=== PATIENT | male | born 1935 | race Caucasian/White ===

== ENCOUNTER → 2016-09-12 | Outpatient (CLI) | payer MEDICARE, OTHER ==
[2013-12-04 21:58] VITALS: BP 168/84
--- NOTE | 2016-09-12 15:34 | RAD ---
EXAM: Left lower extremity venous Doppler. HISTORY: Left lower extremity pain/swelling. COMPARISON: None. FINDINGS: Grayscale and Doppler analysis of the left lower extremity deep venous system was performed with graded compression and augmentation. The common femoral, greater saphenous, superficial femoral, popliteal and calf veins were assessed. There is no evidence of deep venous thrombosis. A prominent left inguinal lymph node measures 2.8 x 1.1 cm and has a fatty hilus. IMPRESSION: 1. No evidence of deep venous thrombosis. 2. Prominent left inguinal node. Correlate for left lower extremity inflammation.
== END | disposition home or self-care (01) ==
LOC: US 12:51
PROVIDERS: ATTEND Family Medicine
DX: I82.4Z2 Acute embolism and thrombosis of unspecified deep veins of left distal lower extremity (principal); M79.89 Other specified soft tissue disorders
CPT/HCPCS: 93971

== ENCOUNTER → 2017-09-22 | Outpatient (CLI) | payer MEDICARE, OTHER | END | disposition home or self-care (01) | LOC: KCIC US 09:37 | DX: I70.213 Atherosclerosis of native arteries of extremities with intermittent claudication, bilateral legs (principal); I10 Essential (primary) hypertension; E78.00 Pure hypercholesterolemia, unspecified | CPT/HCPCS: 93922; 93925 ==

== ENCOUNTER → 2018-05-04 | Outpatient (CLI) | payer MEDICARE ==
[2013-12-04 21:58] VITALS: BP 168/84
--- NOTE | 2018-05-04 09:30 | RAD ---
EXAM: CT Chest without IV contrast CLINICAL HISTORY: PULM INFILTRATE COMPARISON: 09/25/2015, 07/03/2015 TECHNIQUE: CT of the chest without intravenous contrast. Axial, coronal and sagittal reformatted images were generated. ---PQRS compliance statement - One or more of the following individualized dose reduction techniques were utilized for this study: 1. Automated exposure control 2. Adjustment of the mA and/or kV according to patient size 3. Use of iterative reconstruction technique--- FINDINGS: Lack of intravenous contrast limits evaluation of solid organs, vasculature, and lymph nodes. Chest: The heart is not enlarged. No pericardial effusion. Coronary artery calcifications are seen. No axillary lymphadenopathy. No mediastinal or hilar lymphadenopathy. Mild emphysematous changes are seen. No lobar consolidation. Within the lingula, there is a 1.9 x 2.2 cm nodular density with associated patchy linear opacities previously measured 1.7 x 1.6 cm.. In the right upper lobe, abutting the minor fissure, is a spiculated mass measuring 2.6 x 2.3 cm. Left subscapularis lipoma. Visualized Upper abdomen: Nonobstructing left upper pole renal calculus is seen. Upper abdomen is otherwise grossly unremarkable. Bones: Multilevel degenerative changes of the spine are seen. No definite aggressive osseous lesion is seen. IMPRESSION: 1. Spiculated nodular densities within the right upper lobe is suspicious for malignancy, new compared to 09/25/2015. This can be further assessed by PET/CT or histopathologic correlation as clinically indicated. 2. Mild interval increase in the lingular density, also can be assessed by PET. 3. No definite mediastinal or hilar lymphadenopathy by size criteria. Electronically signed by: Rd Michaels MD (05/04/2018 9:25 AM) [facility]
== END | disposition home or self-care (01) ==
LOC: CT 07:57
PROVIDERS: ATTEND Internal Medicine Pulmonary Disease
DX: J43.9 Emphysema, unspecified (principal); I25.10 Atherosclerotic heart disease of native coronary artery without angina pectoris; D17.1 Benign lipomatous neoplasm of skin and subcutaneous tissue of trunk; N20.0 Calculus of kidney
CPT/HCPCS: 71250

== ENCOUNTER → 2018-07-12 | Outpatient (CLI) | payer MEDICARE, OTHER ==
[2018-06-15 15:00] VITALS: BP 157/70
[~2018-07-12] MED LIST: ALLO100T PO; CHOL10003 PO; FENO145T30 PO; GLIM1TAB2 PO; IPRA4AER IH; LISI-130 PO; OMEG-128 PO; TICA60TA PO
--- NOTE | 2018-07-13 20:14 | RAD ---
Examination: PET/CT exam skull base to mid thighs History: Bilateral lung masses, bladder cancer Comparison/Correlation: 06/06/2018 CT chest without contrast Findings: 14.3 mCi F-18 FDG was intravenously administered for that CT exam. Serum blood glucose at the time of injection was 133 mg/dL. Uptake of radiotracer involving the visualized head and neck is unremarkable. At the anterior right midthoracic level, there is a mass with SUV max of 15.7. This spiculated mass measuring up to 2.4 cm in diameter is unchanged. Intrasinus involving the lung dye again seen. There is a mass involving the lingula them measuring approximately 2 cm and this has remained stable. It abuts the major fissure. Uptake of radiotracer is mild with SUV max of 2.4. Mild tracheomalacia noted. No pleural or pericardial effusion. No abnormal uptake at thoracic lymph nodes. Intense uptake involving the proximal ascending colon is present with SUV max of 9.3. Within the proximal hepatic flexure, there is a focus of intense uptake with SUV max of 8.7. No enlarged abdominal or pelvic lymph nodes. The gallbladder is not identified. No radiopaque collecting system calculi. Diverticulosis of the colon is present. Small right-sided urinary bladder diverticulum appears to be present. No suspicious bony process Impression: Intense uptake involving the patient's known anterior right midthoracic mass. No change in size. Additional mass involving the left midthoracic region has mild uptake and is of indeterminate significance. It has remained stable. There are 2 foci of uptake involving the ascending colon. Findings raise concern for underlying no blastic polyp lesion. Correlate with direct visualization.
== END | disposition home or self-care (01) ==
LOC: PETSC 08:10
PROVIDERS: ATTEND Radiology Radiation Oncology
DX: C34.11 Malignant neoplasm of upper lobe, right bronchus or lung (principal); K57.30 Diverticulosis of large intestine without perforation or abscess without bleeding; J39.8 Other specified diseases of upper respiratory tract; Z85.51 Personal history of malignant neoplasm of bladder
CPT/HCPCS: 78815; A9552

== ENCOUNTER → 2018-10-02 | Outpatient (CLI) | payer MEDICARE, OTHER ==
[2018-06-15 15:00] VITALS: BP 157/70
[~2018-10-02] MED LIST changes: +CLOP75TA PO; +METO25TA4 PO
--- NOTE | 2018-10-02 17:43 | RAD ---
Chest CT without contrast Clinical indications: History of lung cancer. Follow-up study. COMPARISON: July 12, 2018 PET/CT. TECHNIQUE: Noncontrast helical CT scanning of the chest was performed. Without IV contrast, the sensitivity to detect organ pathology is decreased. PQRS compliance Statement One or more of the following individualized dose reduction techniques were utilized for this study: 1. Automated exposure control 2. Adjustment of the mA and/or kV according to patient size 3. Use of iterative reconstruction technique FINDINGS: No enlarged thoracic lymphadenopathy is evident. No focal aneurysmal dilatation of the thoracic aorta is seen. Calcified atheromatous disease of coronary arteries is seen. The heart size is normal and no pericardial effusion is seen. Again seen are nodular infiltrates within the lingula with a calcified granuloma which is stable. Again seen is nodular lung infiltrate adjacent to the minor fissure of the inferior aspect of the right upper lobe which is stable. Small calcified granulomas of the right upper lobe and right middle lobe are seen. No new lung consolidation is evident. No pleural effusion or pneumothorax is seen. The proximal bronchial tree is patent. Again seen is an intramuscular lipoma of the left subscapularis muscle. This is unchanged. This measures 5.6 cm in size. No lytic process is evident. IMPRESSION: Stable chest CT since July 12, 2018. Stable bilateral nodular lung infiltrates. Electronically signed by: Flavio Quinones MD (10/02/2018 5:40 PM) [place] [id number]
== END | disposition home or self-care (01) ==
LOC: CT 08:25
PROVIDERS: ATTEND Radiology Radiation Oncology
DX: R91.8 Other nonspecific abnormal finding of lung field (principal); I25.10 Atherosclerotic heart disease of native coronary artery without angina pectoris; J84.10 Pulmonary fibrosis, unspecified; D17.79 Benign lipomatous neoplasm of other sites; Z85.118 Personal history of other malignant neoplasm of bronchus and lung
CPT/HCPCS: 71250

== ENCOUNTER → 2019-01-03 | Outpatient (CLI) | payer MEDICARE, OTHER ==
[2018-06-15 15:00] VITALS: BP 157/70
[~2019-01-03] MED LIST changes: +ALBU2.5V8 INH; +ASPI81TA50 PO; -GLIM1TAB2 PO; +GLIM1TAB3 PO; +OMEG1CAP6 PO
--- NOTE | 2019-01-03 13:49 | RAD ---
Noncontrast CT scan of the chest compared to similar examination dated October 02, 2018 for lung cancer. TECHNIQUE: Contiguous helical 5 mm axial images are obtained from the thoracic inlet to the base of diaphragm. Sagittal and coronal reformations are evaluated. FINDINGS: Changes of emphysema are again noted. The previously described spiculated right nodular infiltrate is redemonstrated and morphologically unchanged. Measurement is difficult due to the spiculated conformity of this nodule, however measurements obtained on axial image #37 and compared to the prior study on axial image #36 reveal mild additional reduction size, with AP and transverse measurements of 1.6 cm x 1.4 cm, versus prior measurements of 1.7 x 1.6 cm. There is also redemonstration of an irregular nodule in the lingula which adjacent parenchymal scarring which is unchanged in morphology and appearance from the prior examination. The dominant nodular component of this lesion as measured on axial image #37 and compared to the prior examination axial image #39 is stable. Thyroid gland is grossly unremarkable. Central airways are patent. No suspicious mediastinal, hilar, or axillary lymphadenopathy is seen. Heart size within normal limits. Extensive coronary artery calcifications are again noted. The ascending aorta is mildly ectatic at 4.1 cm. Evaluation of the upper abdominal organs is limited by lack of IV contrast, however no gross morphologic anomalies of the visualized organs are identified. There is a large intramuscular lipoma involving the left subscapularis muscle, benign and stable. No suspicious osteoblastic or osteolytic bone lesions are present. IMPRESSION: 1. Spiculated right upper lobe lung nodule which continues to involute, with small interval reduction size from the prior examination. 2. Stable lingular nodule with some associated parenchymal scarring. The dominant nodular component of this region is stable in size and appearance. 3. 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 Benign and of doubtful clinical significance. Electronically signed by: Delvin Young MD (01/03/2019 1:45 PM) [facility] PQRS Compliance Statement: One or more of the following individualized dose reduction techniques were utilized for this examination: 1. Automated exposure control 2. Adjustment of the mA and/or kV according to patient size 3. Use of iterative reconstruction technique
== END | disposition home or self-care (01) ==
LOC: CT 08:03
PROVIDERS: ATTEND Radiology Radiation Oncology
DX: I25.10 Atherosclerotic heart disease of native coronary artery without angina pectoris (principal); D17.79 Benign lipomatous neoplasm of other sites; R91.8 Other nonspecific abnormal finding of lung field; I77.811 Abdominal aortic ectasia; J43.8 Other emphysema
CPT/HCPCS: 71250

== ENCOUNTER → 2019-04-29 | Outpatient (CLI) | payer MEDICARE, OTHER ==
[2018-06-15 15:00] VITALS: BP 157/70
[~2019-04-29] MED LIST changes: +FENO145T3 PO; -FENO145T30 PO; -GLIM1TAB3 PO; +GLIM1TAB7 PO
--- NOTE | 2019-04-29 17:04 | RAD ---
EXAM: CT OF THE CHEST WITHOUT CONTRAST. HISTORY: Lung cancer status post treatment. TECHNIQUE: Computed tomography of the chest was performed without intravenous contrast. One or more of the following individualized dose reduction techniques were utilized for this examination: 1. Automated exposure control. 2. Adjustment of the mA and/or kV according to patient size. 3. Use of iterative reconstruction technique. COMPARISON: 01/03/2019. FINDINGS: Images of the upper abdomen reveal no acute abnormality. Bone windows reveal no suspicious lesions. An intramuscular lipoma within the left subscapularis muscle measures 11 x 5.6 x 3.9 cm. There are no pathologically enlarged mediastinal or axillary lymph nodes. There is no pleural or pericardial effusion. The heart is not enlarged. There are atherosclerotic calcifications of the coronary arteries. A small cavitary nodule in the left upper lobe on image 17. There is a 6 mm and is stable. A scarlike mass inferiorly in the left upper lobe measures approximately 2.1 x 2.0 cm in its most masslike portion and is unchanged. Another lobe of scarring extends more anteriorly and is also stable. A spiculated nodule inferiorly in the right upper lobe on image 36 appears decreased and measures 11 x 8 mm as compared with 13 x 12 mm previously. A tiny 3 mm nodule medially in the right lower lobe on image 40 appears new. Centrilobular emphysema is moderate to severe. IMPRESSION: 1. The treated nodule in the left upper lobe and a small cavitary nodule in the left upper lobe appears stable. 2. A spiculated nodule in the right upper lobe is slightly decreased. 3. A tiny 3 mm nodule in the right lower lobe is new. Three-month follow-up is suggested. 4. Moderate to severe centrilobular emphysema. Electronically signed by: Pj Rajput MD (04/29/2019 5:01 PM) [facility]
== END | disposition home or self-care (01) ==
LOC: CT 09:34
PROVIDERS: ATTEND Radiology Radiation Oncology
DX: Z08 Encounter for follow-up examination after completed treatment for malignant neoplasm (principal); J43.2 Centrilobular emphysema; D17.79 Benign lipomatous neoplasm of other sites; I25.10 Atherosclerotic heart disease of native coronary artery without angina pectoris; R91.8 Other nonspecific abnormal finding of lung field
CPT/HCPCS: 71250

== ENCOUNTER → 2020-08-07 | Outpatient (CLI) | payer MEDICARE, OTHER ==
[2018-06-15 15:00] VITALS: BP 157/70
--- NOTE | 2020-08-07 16:40 | RAD ---
EXAM: PET/CT SCAN INDICATION: Lung cancer COMPARISON: PET CT 07/12/2018. CT chest 05/27/2020 PET/CT SCAN TECHNIQUE: Approximately 60 minutes after the intravenous administration of 15.71millicur ies of F-18 fluorodeoxyglucose (FDG), PET imaging of the body from the base of the skull through the mid thighs was performed. Reconstruction in all 3 planes were performed. The patient's serum glucose level at the time of the F-18 FDG administration was 152 mg/dL. A noncontrast CT scan was obtained fo r attenuation correction and anatomic localization purposes only and is not considered a diagnostic C T scan. PQRS compliance Statement One or more of the following individualized dose reduction techniques were utilized for this study: 1. Automated exposure control 2. Adjustment of the mA and/or kV according to patient size 3. Use of iterative reconstruction technique FINDINGS: Background: Mediastinal SUV max: 3.30 Liver SUV max: 4.35 HEAD AND NECK: No abnormal FDG uptake or lymphadenopathy in the head and neck. CHEST: The spiculated right upper lobe nodule has SUV max 0.93, previously 15.7. It measures 1.6 x 1. 5 cm, similar dimensions from 05/27/2020 but may be less dense. The small cavitary nodule in the media l left apex measures 1.2 x 0.7 cm and has SUV max 4.14. This is new from prior PET/CT and grossly unc hanged in size from 05/27/2020. The nodule in the lingula abutting the fissure measures 2.1 x 1.9 cm a nd has SUV max 1.73, previously 2.4. Adjacent smaller lingular nodule measures 1.3 x 1.0 cm and has S UV max 1.18. These are also similar in size from 05/27/2020. No new abnormal FDG uptake in the chest. There are scattered calcified granulomas. There is mild paraseptal and centrilobular emphysema. No ly mphadenopathy. Heart is normal in size. There are coronary artery calcifications. No lymphadenopathy. ABDOMEN AND PELVIS: Focal FDG uptake at the base of the cecum cecum has SUV max 13.4, previously 9.3. A separate focal uptake in the distal ascending colon/hepatic flexure has SUV max 9.19, previously 8 .7. Eccentric bladder wall thickening on the right is unchanged in appearance. SUV measurements are diffi cult to obtain due to artifact from adjacent urinoma.. Right-sided bladder diverticulum redemonstrate d. There is a new calcification in the bladder at the left UVJ. No hydronephrosis or hydroureter. The re is sigmoid diverticulosis. The liver, pancreas, spleen, adrenal glands are normal in appearance. T here is a simple right renal cyst. MUSCULOSKELETAL: No abnormal radiotracer uptake. IMPRESSION: 1. There is mild FDG uptake in the small cavitary nodule in the medial left apex with SUV max 4.1. Th is could be malignancy or could be infectious/inflammatory. 2. The previously FDG avid nodule in the right upper lobe and the nodules in the lingula now have no FDG uptake above background. 3. Slightly decreased but persistent moderate focal FDG uptake at the base of the cecum. Persistent s eparate focus of moderate FDG uptake in the ascending colon/hepatic flexure. Neoplasm, or infectious or inflammatory processes are possible. Correlate with colonoscopy if not already performed. 4. Unchanged right-sided bladder wall thickening. Unable to assess FDG uptake due to artifact from ur inary uptake. New calcification in the bladder at the left UVJ. No hydronephrosis. Electronically signed by: Amanda Govea MD (08/07/2020 4:38 PM) [id number]
== END ==
LOC: PETSC 08:07
PROVIDERS: ATTEND Internal Medicine Pulmonary Disease
DX: R91.8 Other nonspecific abnormal finding of lung field (principal)
CPT/HCPCS: 78815; A9552

== ENCOUNTER → 2020-11-17 | Outpatient (CLI) | payer MEDICARE, OTHER ==
[2018-06-15 15:00] VITALS: BP 157/70
[~2020-11-17] MED LIST changes: +REGADENOSON 0.4 MG/5 ML DISP.SYRIN. IV ONE
--- NOTE | 2020-11-17 17:52 | CARD ---
MR#: [id number] Date of Study: 11/17/2020 Ordering Physician: OTILIO CRYSTAL, Referring Physician: OTILIO CRYSTAL, Tech: Jojo Coleman, [facility] APPROVED REPORT EXAM: Two-dimensional and M-mode echocardiogram with Doppler and color Doppler. Other Information HR: 82bpm INDICATION COPD Cardiac Disease: CAD RISK FACTORS Hypertension Hyperlipidemia Diabetes 2D DIMENSIONS RVDd3.2 (2.9-3.5cm)Left Atrium(2D)3.6 (1.6-4.0cm) IVSd1.2 (0.7-1.1cm)Aortic Root(2D)3.8 (2.0-3.7cm) LVDd4.8 (3.9-5.9cm)LVOT Diameter2.0 (1.8-2.4cm) PWd1.2 (0.7-1.1cm)LVDs2.7 (2.5-4.0cm) FS (%) 44.7 %SV83.5 ml Aortic Valve AoV Peak Oziel.150.9cm/sAoV VTI33.6cm AO Peak GR.9.1mmHgLVOT Peak Oziel.118.1cm/s LVOT VTI 29.42cmAO Mean GR.6mmHg BIRD (VMAX)1.10oy6YMX (VTI)2.75cm2 Mitral Valve MV E Ocrkyaog93.2cm/sMV DECEL CORQ191bp MV A Temyfobx731.8cm/sMV E Mean Gr.3mmHg MV VAH51bmR/A Ratio0.9 MVA (PHT)3.55cm2 TDI E/Lateral E'12.3E/Medial E'12.4 Pulmonary Valve PV Peak Xephxucf64.7cm/sPV Peak Grad.3mmHg Tricuspid Valve TR P. Coetvsqq386fl/sRAP GGBQPRLX3zoCj TR Peak Gr.53qpPvQWOP18eaTg Pulmonary Vein S1 Tmptxdte75.8cm/sD2 Nfvdstkd39.9cm/s PVa mgjacdib425klwm LEFT VENTRICLE The left ventricle is normal size. There is mild left ventricular hypertrophy. The left ventricular s ystolic function is normal and the ejection fraction is within normal range. The Ejection Fraction is 60-65%. There is normal LV segmental wall motion. Transmitral Doppler flow pattern is Grade I-abnorm al relaxation pattern. RIGHT VENTRICLE The right ventricle is normal size. There is normal right ventricular wall thickness. The right ventr icular systolic function is normal. ATRIA The left atrium size is normal. The right atrium size is normal. The interatrial septum is intact wit h no evidence for an atrial septal defect or patent foramen ovale as noted on 2-D or Doppler imaging. AORTIC VALVE The aortic valve is mildly thickened. Doppler and Color Flow revealed trace aortic regurgitation. The re is no significant aortic valvular stenosis. Calculated aortic valve area is 2.29 cm2 with maximum pressure gradient of 12 mmHg and mean pressure gradient of 7 mmHg. MITRAL VALVE The mitral valve is normal in structure and function. There is no evidence of mitral valve prolapse. There is no mitral valve stenosis. Doppler and Color-flow revealed trace mitral regurgitation. TRICUSPID VALVE The tricuspid valve is normal in structure and function. Doppler and Color Flow revealed trace tricus pid regurgitation with an estimated PAP of 30 mmHg. There is no tricuspid valve stenosis. PULMONIC VALVE The pulmonic valve is not well visualized. Doppler and Color Flow revealed trace pulmonic valvular re gurgitation. GREAT VESSELS The aortic root is normal in size. The ascending aorta is mildly dilated measuring 3.8 cm. The IVC is normal in size and collapses >50% with inspiration. PERICARDIAL EFFUSION There is no evidence of significant pericardial effusion. Critical Notification Critical Value: No <Conclusion> The left ventricle is normal size. The left ventricular systolic function is normal and the ejection fraction is within normal range. The Ejection Fraction is 60-65%. There is normal LV segmental wall motion. There is mild left ventricular hypertrophy. Doppler and Color Flow revealed trace aortic regurgitation. There is no significant aortic valvular stenosis. Doppler and Color-flow revealed trace mitral regurgitation. Doppler and Color Flow revealed trace tricuspid regurgitation with an estimated PAP of 30 mmHg. The ascending aorta is mildly dilated measuring 3.8 cm. Signed by : Sam Wood MD Electronically Approved : 11/17/2020 17:51:53
--- NOTE | 2020-11-17 18:27 | RAD ---
MR#: [id number] Date of Study: 11/17/2020 Ordering Physician: OTILIO CRYSTAL, Referring Physician: SAUD THORNTON Tech: RAE Ba, ARRT (R) (N) APPROVED REPORT Test Type: Pharmacological Stress Nurse/Tech: ELLIE AGUILAR Test Indications: CAD Cardiac History: CAD,STENTS,HTN- SEE EMR Medications: SEE EMR Medical History: COPD, HOME O2, BLADDER CA- SEE EMR Resting ECG: SR Resting Heart Rate: 67 bpm Resting Blood Pressure: 199/87mmHg Pretest Chest Pain: No chest pain Nurse/Tech Notes S1,S2, BP ELEVATED, SR, PT IS WEARING 3L O2 PER NC, SATS 96%, LUNGS CLEAR/DIMINISHED. PT DENIED CHEST PAIN. Consent: The procedure was explained to the patient in lay terms. Informed consent was witnessed. Bakari eout was entered into [employer]. History and Stress Test performed by Aftab Mcbride, (R) (N) Pharm. Details Pharmacologic stress testing was performed using 0.4mg per 5ml of regadenoson given intravenously ove r 7-10 seconds. Stress Symptoms PT HAD A BRIEF PERIOD OF SHORTNESS OF BREATH DURING INITIAL TESTING, RESOLVED AFTER A FEW MINUTES. NO C/O CHEST PAIN. VSS. POST EXERCISE Reason for Termination: Infusion complete Max HR: 98 bpm Max Blood Pressure: 194/83mmHg Blood Pressure response to exercise: Normal blood pressure response during stress. Heart Rate response to exercise: WNL Chest Pain: No. Arrhythmia: No. NO SIGNIFICANT CHANGES NOTED FROM BASELINE EKG. ST Change: No. INTERPRETATION Stress EKG Conclusion: The resting EKG shows a normal sinus rhythm. The stress EKG shows no significant changes from baseline. No EKG evidence of stress-induced ischemia. Imaging Protocol IMAGE PROTOCOL: Rest Tc-99m/stress Tc-99m 1 day Rest: Stress: Viability: Radiopharm.Tc99m AcndgtxpqTk63x Sestamibi Regk7lGu 32mCi Img Date 11/17/2020 11/17/2020 Inj-Img Mfhg18iyx. 60min. Rest Admin Site:IV - Right AntecubitalAdministrator:RAE Ba, ARRT (R)(N) Stress Admin Site: IV - Right AntecubitalAdministrator: Aftab Mcbride, RT (R)(N) STRESS DATA End Diast. Vol.85.0mlAv. Heart Rate81.0bpm End Syst. Vol.16.0mlCO Index BSA0.0L/min Myocardial Giyn602.0gEject. Dsfahzyh53.0% Stress Rates Pk. Fill Rate3.16EDV/secLVtime Pk. Fill 169.50msec Pk. Empty Rate4.10ESV/secLVtime Pk. Nxjyy532.49msec 04/05 Pk. Fill1.08EDV/sec Stress Scores Regional WT2.00Summed WT6.00 Regional WM0.00Summed WM0.00 LV Perfusion The stress scans show no significant defects. The rest scans showed no significant defects. Nuclear imaging shows no reversible ischemia or infarct. Wall Motion Left ventricular systolic function is normal with an ejection fraction of greater than 70%. LV Perf. Quant 17 Seg. SSS4.00 17 Seg. SRS11.00 17 Seg. SDS0.00 Stress Defect Extent (% LAD)0.00Rest Defect Extent (% LAD)0.60Rev. Defect Extent (% LAD)0.00 Stress Defect Extent (% LCX) 8.80Rest Defect Extent (% LCX)32.50Rev. Defect Extent (% LCX)0.00 Stress Defect Extent (% RCA)3.30Rest Defect Extent (% RCA)33.30Rev. Defect Extent (% RCA)0.00 Stress Defect Extent (% ANASTACIA)3.70Rest Defect Extent (% ANASTACIA)18.90Rev. Defect Extent (% ANASTACIA)0.00 Conclusion 1. No EKG evidence of stress-induced ischemia. 2. Nuclear imaging shows no reversible ischemia or infarct. 3. Normal left ventricular systolic function with an ejection fraction of greater than 70%. 4. Low risk Lexiscan nuclear stress test. Signed by : Sam Wood MD Electronically Approved : 11/17/2020 18:26:51
== END ==
LOC: ECHO 09:00
PROVIDERS: ATTEND Internal Medicine Cardiovascular Disease
DX: I11.9 Hypertensive heart disease without heart failure (principal); I25.10 Atherosclerotic heart disease of native coronary artery without angina pectoris
CPT/HCPCS: 78452; 93017; 93306; A9500; J2785

== ENCOUNTER → 2020-12-30 | Outpatient (CLI) | payer MEDICARE, OTHER ==
[2020-12-26 11:00] VITALS: BP 167/84
[~2020-12-30] MED LIST changes: +ALBU2.5V8 IH; +ASCO100019 PO; +FLUT16SP NS; +HYDR12.575 PO; +LOSA-73 PO; +MULT-245 PO; +PANT40TA77 PO; +PRED20TA PO; -REGADENOSON 0.4 MG/5 ML DISP.SYRIN. IV ONE; +THIA100T22 PO
--- NOTE | 2020-12-31 12:21 | RAD ---
EXAM: CT CHEST WITHOUT CONTRAST HISTORY: Lung nodule COMPARISON: CT chest 05/27/2020 TECHNIQUE: Helical CT of the chest performed without contrast. Coronal and sagittal reformats were o btained. One or more of the following individualized dose reduction techniques were utilized for this examinat ion: 1. Automated exposure control 2. Adjustment of the mA and/or kV according to patient size 3. Use of iterative reconstruction technique. FINDINGS: Thyroid gland and thoracic inlet: Normal. Heart and great vessels: Heart is normal in size. No pericardial effusion. There are extensive valdes ry artery calcifications, greatest in the left anterior descending artery. The thoracic aorta is at t he upper limit of normal in the ascending portion measuring 3.9 cm Mediastinum and ryan: No mediastinal or hilar lymphadenopathy. Lungs and pleura: The spiculated nodule in the medial left upper lobe has increased in size now 2.1 x 2.1 x 1.7 cm centimeters, previously 1.3 x 0.9 x 0.8 cm. There are persistent small cavitary compone nts in the nodule. There are new mild linear confluent opacities and traction bronchiectasis in the p osterior left upper lobe abutting the major fissure at the level of the nodule. The opacities in the lingula abutting the major fissure with mild traction bronchiectasis have increa sed and are more confluent. There are some persistent nodular component including a nodular component extending anteriorly, however this is difficult measure. A nodular opacity in the right upper lobe along the minor fissure has increased now measures 2.3 x 1. 5 x 0.5 cm, previously 1.6 x 1.4 x 0.6 cm. There are increased surrounding confluent opacities and mi ld subpleural cystic reticular changes. There are also new confluent opacities with traction bronchie ctasis and honeycombing in the right lower lobe and perihilar right middle lobe. In the perihilar rig ht middle lobe, the opacities are somewhat nodular in appearance. Chest wall and axillae: No axillary lymphadenopathy. There is an intramuscular lipoma in the left sub scapularis muscle. Upper abdomen: Unremarkable. Bones: No acute osseous abnormality. IMPRESSION: 1. Increased size of spiculated nodule in the medial left upper lobe concerning for malignancy. 2. Increased nodular opacities in the lingula, difficult to measure. Slightly increased nodular opaci ty in the right upper lobe. There are also new consolidative opacities in the right middle lobe and r ight lower lobe with honeycombing and traction bronchiectasis. Findings may all be related to treatme nt changes however residual malignancy or progression of malignancy cannot be excluded. Electronically signed by: Amanda Govea MD (12/31/2020 12:19 PM) [id number]
== END ==
LOC: CT 15:44
PROVIDERS: ATTEND Internal Medicine Critical Care Medicine
DX: R91.8 Other nonspecific abnormal finding of lung field (principal); J47.9 Bronchiectasis, uncomplicated; I25.10 Atherosclerotic heart disease of native coronary artery without angina pectoris; D17.79 Benign lipomatous neoplasm of other sites
CPT/HCPCS: 71250

== ENCOUNTER → 2021-06-25 | Outpatient (CLI) | payer MEDICARE, OTHER ==
[2020-12-26 11:00] VITALS: BP 167/84
--- NOTE | 2021-06-25 15:01 | RAD ---
NM PET/CT SKULL BASE TO MID THIGH Clinical Indication: Pulmonary nodule Comparison: CT December 30, 2020. PET/CT August 07, 2020 no pathologic lymphadenopathy. Technique: Patient blood glucose at the time of injection is 230 mg/dL. The patient was administered 12.9 mCi of F-18 FDG intravenously. The patient rested quietly during a 60 minute uptake period. Then PET imaging from the skull base to the upper thighs was performed. A noncontrast CT was acquired ove r this same area. The CT is for attenuation correction and anatomic localization, it is not of diagno stic quality and is not intended to diagnose disease independently of the PET. PQRS Compliance Statement: One or more of the following individualized dose reduction techniques were utilized for this examinat ion: 1. Automated exposure control 2. Adjustment of the mA and/or kV according to patient size 3. Use of iterative reconstruction technique Findings: Background: Mediastinal SUV max: 3.4 Liver SUV max: 3.67 Head and neck: There is no evidence of FDG-avid disease. Chest: Decreased left upper lobe nodule with minimal residual nodule SUV max 0.83. Left upper lobar partial atelectasis SUV max 1.67, similar compared to prior. Right upper lobe linear bandlike opacities SUV M ax 1.19, similar compared to prior. No significant hypermetabolic focus within the lungs. Pulmonary emphysema. No pleural effusion. No pneumothorax. Abdomen and pelvis: Hypermetabolic focus within the right ascending colon SUV Max 6.38. Additional hypermetabolic focus w ithin the ascending colon SUV Max 8.91. The hypermetabolic foci and a similar location compared to pr ior. The liver, spleen, adrenal glands, and pancreas unremarkable. Prior cholecystectomy. Duplicated left renal collecting system with mild hydronephrosis and hydroureter. Ill-defined irregular calcified mas s within the urinary bladder at the left ureterovesical junction measures up to 1.8 x 1.9 cm. Evaluat ion on PET is degraded due to urinary activity No right hydronephrosis. Right renal cyst. Right urina ry bladder diverticulum, unchanged. Colonic diverticulosis. Normal appendix. No evidence of bowel obstruction. No pathologic hypermetabol ic lymphadenopathy within the abdomen or pelvis. No ascites. Musculoskeletal: There is no evidence of FDG-avid disease. Left subscapularis intramuscular lipoma measures 5.0 x 4.0 cm. IMPRESSION: 1. Decreased left upper lobe nodule without significant metabolic activity, may reflect treatment re sponse. Recommend continued follow-up. 2. Left upper lobe and right upper lobe bandlike opacities, may relate to atelectasis and treatment related changes without significant metabolic activity. 3. Ill-defined the partially calcified left posterior bladder mass adjacent to the ureterovesical ju nction contributing to moderate left hydroureteronephrosis. Duplicated left renal collecting system. Recommend further clinical evaluation and biopsy. 4. Persistent hypermetabolic foci within the ascending colon, may represent malignancy given persist ence. Recommend colonoscopy to further assess if not already performed. Electronically signed by: Matthew Varma DO (06/25/2021 2:59 PM) [id number]
== END ==
LOC: PETSC 09:32
PROVIDERS: ATTEND Radiology Radiation Oncology
DX: C34.2 Malignant neoplasm of middle lobe, bronchus or lung (principal); R91.1 Solitary pulmonary nodule; R91.8 Other nonspecific abnormal finding of lung field; K57.30 Diverticulosis of large intestine without perforation or abscess without bleeding; N28.1 Cyst of kidney, acquired; N32.3 Diverticulum of bladder; N32.89 Other specified disorders of bladder; Q62.5 Duplication of ureter; Z90.49 Acquired absence of other specified parts of digestive tract
CPT/HCPCS: 78815; A9552

== ENCOUNTER 2021-08-23 09:15 | Inpatient (IN) | payer MEDICARE, OTHER ==
[~2021-08-23] VITALS: Ht 180.3 cm; Wt 85.3 kg
--- NOTE | 2021-08-23 10:56 | PDOC1 ---
History and Physical Date of Admission Date of Admission DATE: 08/23/21 TIME: 10:56 Identification/Chief Complaint Chief Complaint Shortness of breath Source Source: Patient History of Present Illness History of Present Illness Patient is a 86-year-old male with past medical history COPD on 3 L, lung cancer, bladder cancer, who presents to the ED as a transfer from [facility] due to pneumonia. Patient reports shortness of breath for the past 3 days with associated cough with green sputum production. He denies chest pain or fever. He was recently discharged from 3 weeks ago after having surgery on his bladder to remove the tumor. At a left nephrostomy tube was placed to preserve his kidney function; patient was told that his right kidney is currently no longer functioning. He just recently returned home from rehab. He is not currently receiving chemotherapy for his history of lung cancer or bladder cancer. At [facility] labs showed WBC 17.3, hemoglobin 10.0, hematocrit 30.9, BUN 45, creatinine 2.6, CBG 133, albumin 3.0, troponin 2.6, lactic acid 0.8, D-dimer 2.0. He was influenza and COVID-19 negative. CTA was performed and showed no evidence of pulmonary embolism, but new mild right pleural effusion and new consolidation of the right lung base, atypical pneumonia suspected. He was treated with IV steroids and IV antibiotics. His last COPD exacerbation was in March 2021, and he states his testing director is Dr. Kyle. Patient's been admitted for further medical management. Past Medical History Cardiovascular: HTN, Hyperlipidemia Pulmonary: COPD CENTRAL NERVOUS SYSTEM: Other GI: No pertinent hx Heme/Onc: Cancer Hepatobiliary: No pertinent hx Psych: No pertinent hx Musculoskeletal: Osteoarthritis Rheumatologic: No pertinent hx Infectious disease: No pertinent hx Renal/: Chronic renal insuff Endocrine: Diabetes Past Surgical History Past Surgical History: Appendectomy, Cholecystectomy, Other Family History Family History: Coronary Artery Disease Social History Smoke: Quit ALCOHOL: none Drugs: None Current Medications Current Medications Active Scripts Active Prednisone 20 Mg Tablet 1 Tab PO DAILY 5 Days Vitamin C (Ascorbic Acid) 1,000 Mg Tablet 3,000 Mg PO TID 14 Days Vitamin B-1 (Thiamine Mononitrate) 100 Mg Tablet 300 Mg PO DAILY 14 Days Pantoprazole Sodium (Pantoprazole Sodium) 40 Mg Tablet.dr 40 Mg PO DAILYAC 14 Days Fluticasone Propionate Nasal [place] (Fluticasone Propionate) 16 Gm [place].susp 2 [place] NS DAILY 30 Days Proair Hfa Inhaler (Albuterol Sulfate) 8.5 Gm Hfa.aer.ad 2 Puff IH PRN Q4-6HRS PRN 21 Days Inhale 2 puffs every 4-6 hours as needed for shortness of breath. Reported Losartan Potassium 50 Mg Tablet 50 Mg PO DAILY Hydrochlorothiazide Capsule (Hydrochlorothiazide) 12.5 Mg Capsule 12.5 Mg PO DAILY Multi Vitamin Daily (Multivitamin) 1 Each Tablet 1 Tab PO DAILY 30 Days Fish Oil 1,000 Mg Capsule (Alamo-3 Fatty Acids/Fish Oil) 1 Each Capsule 1 Each PO DAILY Proair Hfa Inhaler (Albuterol Sulfate) 8.5 Gm Hfa.aer.ad 1 Puff INH PRN Q6HRS PRN Aspir-Low (Aspirin) 81 Mg Tablet.dr 81 Mg PO DAILY Combivent Respimat Inhal (Ipratropium/Albuterol Sulfate) 4 Gm Aer.w.adap 2 Inh IH QID Vitamin D3 (Cholecalciferol (Vitamin D3)) 1,000 Unit Tablet 1 Tab PO DAILY Fenofibrate (Fenofibrate Nanocrystallized) 145 Mg Tablet 1 Tab PO DAILY Allopurinol 100 Mg Tablet 1 Tab PO DAILY Alamo 3 500 Softgel (Alamo-3/Dha/Epa/Fish Oil) 1 Each Capsule 1 Each PO DAILY Allergies Allergies: Coded Allergies: No Known Drug Allergies (Unverified , 12/03/13) ROS Review of System GENERAL: No history of weight change, weakness or fevers. SKIN: No bruising, hair changes or rashes. EYES: No blurred, double or loss of vision. NOSE AND THROAT: No history of nosebleeds, hoarseness or sore throat. HEART: Denies chest pain, denies palpitations. LUNGS: Shortness of breath and cough. Denies hemoptysis. GASTROINTESTINAL: Denies nausea, vomiting, abdominal pain. GENITOURINARY: Denies dysuria, frequency, urgency, hematuria. NEUROLOGIC: Denies history of numbness, tingling, tremor or weakness. PSYCHIATRIC: Denies anxiety, denies depression. ENDOCRINE: No history of heat or cold intolerance, polyuria or polydipsia. EXTREMITIES: Denies muscle weakness, joint pain, pain on walking or stiffness. Physical Exam Physical Exam General: Alert, Oriented X3, Cooperative, No acute distress HEENT: Hard of hearing. PERRLA, EOMI Lungs: Decreased breath sounds bilaterally normal air movement Heart: RRR, no murmurs Cardiovascular: S1, S2 Abdomen: Nephrostomy tubes to left flank. Normal bowel sounds, Soft, No tenderness Extremities: +1 edema bilateral lower extremities. No clubbing, No cyanosis Skin: No rashes, No significant lesion Neuro: Normal speech, Normal tone, Sensation intact Psych/Mental Status: Mental status NL, Mood NL Images Images PATIENT: DINORA FRORESTER ACCOUNT: [id number] : 1935 LOCATION: ER AGE: 86 SEX: M EXAM STATUS: REG ER ORD. PHYSICIAN: KATIE FARR MD REASON: SOB, lung cancer PROCEDURE: CT ANGIOGRAPHY CHEST ADDENDUM ADDENDUM #1 Addendum: The patient was given IV contrast despite acute renal insufficiency. Ordered by the clinical provider on medical necessity. Electronically signed by: Al Mary III, MD (08/23/2021 6:59 AM) [facility] ORIGINAL REPORT CTA Chest with contrast: Clinical History: Reason: SOB, lung cancer / Spl. Instructions: / History: Shortness of breath. Axial helical images of the chest were obtained after the administration of 100 cc of IV Isovue-370 and timed appropriately for a pulmonary arterial study. Conventional axial reconstruction was performed in addition to coronal, sagittal and bilateral oblique MIP (maximum intensity projection). This study was ordered to detect possible pulmonary embolism. There are no filling defects to suggest pulmonary embolism. COMPARISON: March 08, 2021 There is a 9.9 cm x 4.0 cm benign lipoma anterior to the left scapula. There is patchy opacity posterior to the left upper lobe. There is patchy nodular opacities throughout the right lung and consolidation in the right lung base. There is nodular opacity posteriorly in the lingula. There is a mild right pleural effusion. There is no mediastinal or hilar lymphadenopathy. The thoracic aorta appears normal. Impression: 1. No evidence of pulmonary embolism. 2. Patchy nodular opacities lungs bilaterally likely related related to patient's known lung cancer and are mildly improved. 3. New mild right pleural effusion and new consolidation of the right lung base. This could be neoplastic although atypical pneumonia is possible. PQRS Compliance Statement: One or more of the following individualized dose reduction techniques were utilized for this examination: 1. Automated exposure control 2. Adjustment of the mA and/or kV according to patient size 3. Use of iterative reconstruction technique Electronically signed by: Al Mary III, MD (08/23/2021 5:06 AM) [facility] DICTATED AND SIGNED BY: AL MARY III, MD DATE: 08/23/21 0657 CC: KATIE FARR MD; PCP,NO ~ CTA Chest with contrast: Clinical History: Reason: SOB, lung cancer / Spl. Instructions: / History: Shortness of breath. Axial helical images of the chest were obtained after the administration of 100 cc of IV Isovue-370 and timed appropriately for a pulmonary arterial study. Conventional axial reconstruction was performed in addition to coronal, sagittal and bilateral oblique MIP (maximum intensity projection). This study was ordered to detect possible pulmonary embolism. There are no filling defects to suggest pulmonary embolism. COMPARISON: March 08, 2021 There is a 9.9 cm x 4.0 cm benign lipoma anterior to the left scapula. There is patchy opacity posterior to the left upper lobe. There is patchy nodular opacities throughout the right lung and consolidation in the right lung base. There is nodular opacity posteriorly in the lingula. There is a mild right pleural effusion. There is no mediastinal or hilar lymphadenopathy. The thoracic aorta appears normal. Impression: 1. No evidence of pulmonary embolism. 2. Patchy nodular opacities lungs bilaterally likely related related to patient's known lung cancer and are mildly improved. 3. New mild right pleural effusion and new consolidation of the right lung base. This could be neoplastic although atypical pneumonia is possible. VTE Prophylaxis Ordered VTE Prophylaxis Devices: No VTE Pharmacological Prophylaxi: Yes Assessment/Plan Assessment/Plan Acute respiratory failure with hypoxia Sepsis Hospital-acquired pneumonia Acute COPD Acute on chronic renal insufficiency possibly due to vasomotor nephropathy History lung cancer History of bladder cancer with recent placement of left nephrostomy tube Mild malnutrition Plan: We will continue patient's treatment with cefepime 2 g every 8 hours and vancomycin Consultation to pulmonology Hold off on further steroids given no appreciable wheezing. DuoNebs 4 times daily. IV fluids MRSA swab pending Resume home medications FEN - Cardiac diet PPX - Heparin DNR/patient names his son (Eagle Forrester) as surrogate decision-maker Dispo - inpatient for above Justifications for Admission Other Justification VERNON PRITCHARD MD August 23, 2021 10:56
[2021-08-23] MEDS ORDERED: ACETAMINOPHEN 325 MG TABLET. PO PRN (11:30)
[2021-08-23] MEDS ORDERED: MAGNESIUM HYDROXIDE 2,400 MG/30 ML ORAL.SUSP. PO PRN (11:30)
[2021-08-23] MEDS ORDERED: CALCIUM CARBONATE 500 MG TAB.CHEW PO PRN (11:30)
[2021-08-23] MEDS ORDERED: HYDROcodone/APAP 5/325MG 1 TAB TABLET PO PRN (11:30)
[2021-08-23] MEDS ORDERED: MAG HYDROX/ALUMINUM HYD/SIMETH 30 ML ORAL.SUSP PO PRN (11:30)
[2021-08-23] MEDS ORDERED: ONDANSETRON PF 4 MG/2 ML VIAL. IVP PRN (11:30)
[2021-08-23] MEDS ORDERED: VANCOMYCIN PER PHARMACY MC PRN (11:30)
[2021-08-23 12:01] LABS: BASO % 0 % (0-3); EOS % 0 % (0-3); HEMATOCRIT 29.1 % (39.0-53.0); HEMOGLOBIN 9.6 g/dL (13.0-17.5); LYMPH # 0.2 x10^3/uL (1.0-4.8); LYMPH % 1 % (24-48); MEAN CORPUSCULAR HEMOGLOBIN 31 pg (25-35); MEAN CORPUSCULAR HGB CONC 33 g/dL (31-37); MEAN CORPUSCULAR VOLUME 95 fL (79-100); MONO # 0.4 x10^3/uL (0.0-1.1); MONO % 2 % (0-9); NEUT # 16.4 x10^3/uL (1.8-7.7); NEUT % 96 % (31-73); PLATELET COUNT 311 x10^3/uL (140-400); RED BLOOD COUNT 3.07 x10^6/uL (4.30-5.70); RED CELL DISTRIBUTION WIDTH 14.1 % (11.5-14.5); WHITE BLOOD COUNT 17.1 x10^3/uL (4.0-11.0)
[2021-08-23 12:13] LABS: ALBUMIN 2.7 g/dL (3.4-5.0); ALBUMIN/GLOBULIN RATIO 0.8 (1.0-1.7); CALCIUM 8.3 mg/dL (8.5-10.1); CREATININE 2.8 mg/dL (0.7-1.3); GFR 21.5; POTASSIUM 4.9 mmol/L (3.5-5.1); TOTAL BILIRUBIN 0.5 mg/dL (0.2-1.0); TOTAL PROTEIN 6.2 g/dL (6.4-8.2)
[2021-08-23] MEDS: IV NORMAL SALINE 1000ML BAG 1,000 ML IV SCH (12:37)
[2021-08-23] MEDS: CEFEPIME HCL IV Push 2 GM VIAL. IVP SCH (12:37)
[2021-08-23] MEDS ORDERED: VANCOMYCIN 1.5 GM in IV DEXTROSE 5% 500 ML IV ONE (13:00)
[2021-08-23 13:28] LABS: % BANDS 5 % (0-9); % LYMPHS 1 % (24-48); % MONOS 1 % (0-10); % SEGS 93 % (35-66); PLT ESTIMATE ADEQUATE (ADEQUATE)
--- NOTE | 2021-08-23 15:21 | PDOC ---
PULMONARY PROGRESS NOTES DATE: 08/23/21 TIME: 15:20 General: Alert, No acute distress HEENT: Other Lungs: Other Cardiovascular: S1, S2 Abdomen: Soft, Non-tender Extremities: No Edema Labs Laboratory Tests Test 08/23/21 11:36 White Blood Count 17.1 x10^3/uL (4.0-11.0) Red Blood Count 3.07 x10^6/uL (4.30-5.70) Hemoglobin 9.6 g/dL (13.0-17.5) Hematocrit 29.1 % (39.0-53.0) Mean Corpuscular Volume 95 fL (79-100) Mean Corpuscular Hemoglobin 31 pg (25-35) Mean Corpuscular Hemoglobin Concent 33 g/dL (31-37) Red Cell Distribution Width 14.1 % (11.5-14.5) Platelet Count 311 x10^3/uL (140-400) Neutrophils (%) (Auto) 96 % (31-73) Lymphocytes (%) (Auto) 1 % (24-48) Monocytes (%) (Auto) 2 % (0-9) Eosinophils (%) (Auto) 0 % (0-3) Basophils (%) (Auto) 0 % (0-3) Neutrophils # (Auto) 16.4 x10^3/uL (1.8-7.7) Lymphocytes # (Auto) 0.2 x10^3/uL (1.0-4.8) Monocytes # (Auto) 0.4 x10^3/uL (0.0-1.1) Eosinophils # (Auto) 0.0 x10^3/uL (0.0-0.7) Basophils # (Auto) 0.0 x10^3/uL (0.0-0.2) Segmented Neutrophils % 93 % (35-66) Band Neutrophils % 5 % (0-9) Lymphocytes % 1 % (24-48) Monocytes % 1 % (0-10) Platelet Estimate Adequate (ADEQUATE) Sodium Level 138 mmol/L (136-145) Potassium Level 4.9 mmol/L (3.5-5.1) Chloride Level 99 mmol/L (98-107) Carbon Dioxide Level 27 mmol/L (21-32) Anion Gap 12 (6-14) Blood Urea Nitrogen 47 mg/dL (8-26) Creatinine 2.8 mg/dL (0.7-1.3) Estimated GFR (Cockcroft-Gault) 21.5 BUN/Creatinine Ratio 17 (6-20) Glucose Level 270 mg/dL (70-99) Calcium Level 8.3 mg/dL (8.5-10.1) Total Bilirubin 0.5 mg/dL (0.2-1.0) Aspartate Amino Transf (AST/SGOT) 14 U/L (15-37) Alanine Aminotransferase (ALT/SGPT) 17 U/L (16-63) Alkaline Phosphatase 50 U/L (46-116) Total Protein 6.2 g/dL (6.4-8.2) Albumin 2.7 g/dL (3.4-5.0) Albumin/Globulin Ratio 0.8 (1.0-1.7) Laboratory Tests Test 08/23/21 11:36 White Blood Count 17.1 x10^3/uL (4.0-11.0) Red Blood Count 3.07 x10^6/uL (4.30-5.70) Hemoglobin 9.6 g/dL (13.0-17.5) Hematocrit 29.1 % (39.0-53.0) Mean Corpuscular Volume 95 fL (79-100) Mean Corpuscular Hemoglobin 31 pg (25-35) Mean Corpuscular Hemoglobin Concent 33 g/dL (31-37) Red Cell Distribution Width 14.1 % (11.5-14.5) Platelet Count 311 x10^3/uL (140-400) Neutrophils (%) (Auto) 96 % (31-73) Lymphocytes (%) (Auto) 1 % (24-48) Monocytes (%) (Auto) 2 % (0-9) Eosinophils (%) (Auto) 0 % (0-3) Basophils (%) (Auto) 0 % (0-3) Neutrophils # (Auto) 16.4 x10^3/uL (1.8-7.7) Lymphocytes # (Auto) 0.2 x10^3/uL (1.0-4.8) Monocytes # (Auto) 0.4 x10^3/uL (0.0-1.1) Eosinophils # (Auto) 0.0 x10^3/uL (0.0-0.7) Basophils # (Auto) 0.0 x10^3/uL (0.0-0.2) Segmented Neutrophils % 93 % (35-66) Band Neutrophils % 5 % (0-9) Lymphocytes % 1 % (24-48) Monocytes % 1 % (0-10) Platelet Estimate Adequate (ADEQUATE) Sodium Level 138 mmol/L (136-145) Potassium Level 4.9 mmol/L (3.5-5.1) Chloride Level 99 mmol/L (98-107) Carbon Dioxide Level 27 mmol/L (21-32) Anion Gap 12 (6-14) Blood Urea Nitrogen 47 mg/dL (8-26) Creatinine 2.8 mg/dL (0.7-1.3) Estimated GFR (Cockcroft-Gault) 21.5 BUN/Creatinine Ratio 17 (6-20) Glucose Level 270 mg/dL (70-99) Calcium Level 8.3 mg/dL (8.5-10.1) Total Bilirubin 0.5 mg/dL (0.2-1.0) Aspartate Amino Transf (AST/SGOT) 14 U/L (15-37) Alanine Aminotransferase (ALT/SGPT) 17 U/L (16-63) Alkaline Phosphatase 50 U/L (46-116) Total Protein 6.2 g/dL (6.4-8.2) Albumin 2.7 g/dL (3.4-5.0) Albumin/Globulin Ratio 0.8 (1.0-1.7) Medications Active Scripts Medications Dose Route/Sig Max Daily Dose Days Date Category Dose Instructions Vitamin C (Ascorbic Acid) 1,000 Mg Tablet 3,000 Mg PO TID 14 12/26/20 Rx Hydrochlorothiazide Capsule (Hydrochlorothiazide) 12.5 Mg Capsule 12.5 Mg PO DAILY 12/25/20 Reported Multi Vitamin Daily (Multivitamin) 1 Each Tablet 1 Tab PO DAILY 30 12/25/20 Reported Proair Hfa Inhaler (Albuterol Sulfate) 8.5 Gm Hfa.aer.ad 2 Puff IH PRN Q4-6HRS PRN 21 12/24/20 Rx Inhale 2 puffs every 4-6 hours as needed for shortness of breath. Aspir-Low (Aspirin) 81 Mg Tablet.dr 81 Mg PO DAILY 01/07/19 Reported Vitamin D3 (Cholecalciferol (Vitamin D3)) 1,000 Unit Tablet 1 Tab PO DAILY 06/04/18 Reported Fenofibrate (Fenofibrate Nanocrystallized) 145 Mg Tablet 1 Tab PO DAILY 06/04/18 Reported Allopurinol 100 Mg Tablet 1 Tab PO DAILY 06/04/18 Reported Impression . FULL CONSULT DICTATED RESP FAILURE PNEUMONIA SEEE ORDERS ANAMIKA ARELLANO MD August 23, 2021 15:21
[2021-08-23 19:00] VITALS: BP 141/74
[2021-08-23] MEDS: ZOLPIDEM 5 MG TABLET. PO PRN ×2 (20:16→22:45)
[2021-08-23] MEDS: HEPARIN for SUB-Q USE 5,000 UNIT/ML VIAL. SQ SCH (20:23)
[2021-08-23] MEDS: LACTOBACILLUS RHAMNOSUS GG 1 CAPSULE. PO SCH (20:35)
--- NOTE | 2021-08-23 22:46 | CONS ---
DATE OF CONSULTATION: 08/23/2021 ATTENDING PHYSICIAN: Dr. Reece. REASON FOR CONSULTATION: The patient is seen in Pulmonary consultation at the request of Dr. Reece for abnormal CT revealing a new right lower lobe infiltrate. HISTORY OF PRESENT ILLNESS: The patient is an 86-year-old well known to me from previous hospitalization and office visits. He was seen on 07/14/2021. At that time, he presented with chronic respiratory failure, multifactorial in nature, had a history of right lung cancer in remission for the last 2-3 years, status post definitive radiotherapy, had a new left upper lobe enlarging mass, treated with SBRT. He had undergone a recent PET scan revealing that his disease was under control. The patient also had a history of bladder cancer, was being followed at [facility]. He was recently hospitalized at [facility], underwent surgical intervention there for his bladder tumor. He was discharged home with a left nephrostomy tube. He was at rehab for 17 days, returned home. He was at home for approximately 3 days, presented to [facility] with increasing shortness of breath and abnormal x-ray. White count was 17,000. He had a CT angiogram, which was personally reviewed by me. There was no evidence of pulmonary emboli. There was a new right lower lobe infiltrate, small effusion. He was transferred to [facility]. He is currently receiving empiric antibiotics. He is awake, alert. His appetite is poor. He has a cough, mostly nonproductive. Since admission, he has had a low-grade fever. OBJECTIVE: VITAL SIGNS: Otherwise vital signs are stable. O2 saturation currently on 4 liters greater than 92%. HEENT: Eyes: The sclerae were nonicteric. NECK: Jugular venous distention was not elevated. No lymphadenopathy. CHEST: Full expansion. LUNGS: Diminished breath sounds on the right, otherwise some scattered rhonchi. CARDIOVASCULAR: Regular rate and rhythm with S1, S2, no S3. ABDOMEN: Soft, nontender, nondistended. EXTREMITIES: No clubbing, cyanosis. Minimal edema. NEUROLOGIC: The patient was awake, alert, following commands. A detailed neuro exam was not performed. LABORATORY DATA: White count was elevated at 17,000, hemoglobin of 9, hematocrit of 29, platelet count was noted. Electrolytes were noted. BUN was elevated, creatinine was 2.8, calcium was 8.3, albumin was 2.7. CT angiogram reviewed as indicated above. IMPRESSION: 1. Acute on chronic hypoxemic respiratory failure, multifactorial. 2. Abnormal CT revealing a new infiltrate in left lower lobe with a small effusion, compatible with healthcare-acquired pneumonia, suspect gram-negative, possibly gram-positive. 3. History of lung cancer. 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 4. New left upper lobe enlarging mass, treated with SBRT. Last PET scan revealed disease being under control. 5. Status post left nephrostomy tube, recently hospitalized at [facility] for bladder cancer, had removal of the bladder tumor. 6. Acute on chronic renal failure. 7. Leukocytosis. 8. Severe protein malnutrition, present upon admission. 9. Fever, rule out sepsis. 10. Type 2 diabetes. 11. Coronary artery disease. 12. Hypertension. PLAN: 1. Case discussed with Dr. Reece, continue empiric antibiotics with cefepime. 2. Add Zyvox. 3. Check nasal MRSA screen. 4. Follow blood cultures. 5. Follow clinical course and make further recommendations. Once the patient is discharged, I will see him in followup in the office in 2-4 weeks post-discharge. I do appreciate the privilege in sharing in the patient's care. Total cumulative critical care time of 40 minutes. LASHAE/FABRIZIO LUNA: Kris TID: [id number]
[2021-08-23 23:00] VITALS: BP 144/72
[2021-08-24 03:06] VITALS: BP 172/72
[2021-08-24 06:53] LABS: CALCIUM 8.8 mg/dL (8.5-10.1); CREATININE 2.5 mg/dL (0.7-1.3); GFR 24.5
[2021-08-24 07:00] VITALS: BP 166/78
[2021-08-24 07:13] LABS: BASO % 0 % (0-3); EOS % 0 % (0-3); HEMATOCRIT 28.6 % (39.0-53.0); HEMOGLOBIN 9.3 g/dL (13.0-17.5); LYMPH # 0.6 x10^3/uL (1.0-4.8); LYMPH % 4 % (24-48); MEAN CORPUSCULAR HEMOGLOBIN 31 pg (25-35); MEAN CORPUSCULAR HGB CONC 32 g/dL (31-37); MEAN CORPUSCULAR VOLUME 95 fL (79-100); MONO # 0.8 x10^3/uL (0.0-1.1); MONO % 5 % (0-9); NEUT # 14.2 x10^3/uL (1.8-7.7); NEUT % 91 % (31-73); PLATELET COUNT 368 x10^3/uL (140-400); RED CELL DISTRIBUTION WIDTH 14.1 % (11.5-14.5); WHITE BLOOD COUNT 15.7 x10^3/uL (4.0-11.0)
[2021-08-24] MEDS: IV NORMAL SALINE 1000ML BAG 1,000 ML IV SCH ×2 (07:19→20:58)
[2021-08-24] MEDS ORDERED: METO50TA4 PO (07:39)
[2021-08-24] MEDS ORDERED: METO-239 PO (07:39)
[2021-08-24] MEDS ORDERED: OXYB10TA26 PO (07:39)
[2021-08-24] MEDS ORDERED: ALLO100T PO (07:45)
[2021-08-24] MEDS ORDERED: IPRA4AER IH (07:45)
[2021-08-24] MEDS ORDERED: LOSA1TAB19 PO (07:45)
[2021-08-24] MEDS ORDERED: OMEG1CAP50 PO (07:45)
[2021-08-24] MEDS ORDERED: TEMA15CA PO (07:45)
[2021-08-24] MEDS ORDERED: GLIM1TAB7 PO (07:45)
[2021-08-24] MEDS: LACTOBACILLUS RHAMNOSUS GG 1 CAPSULE. PO SCH ×2 (08:46→20:52)
[2021-08-24] MEDS: HEPARIN for SUB-Q USE 5,000 UNIT/ML VIAL. SQ SCH ×2 (08:54→20:54)
[2021-08-24] MEDS ORDERED: TEMAZEPAM 15 MG CAPSULE PO PRN (09:15)
[2021-08-24] MEDS ORDERED: IPRATRPIUM/ALBUTEROL 0.5/2.5MG 3 ML NEBU. ONE (09:24)
[2021-08-24] MEDS: IPRATRPIUM/ALBUTEROL 0.5/2.5MG 3 ML NEBU. NEB SCH ×3 (09:26→21:30)
[2021-08-24] MEDS ORDERED: guaiFENesin ORAL 200 MG/10 ML LIQUID. PO PRN (10:00)
--- NOTE | 2021-08-24 10:06 | PDOC ---
[employer] PROGRESS NOTE Date of Service DOS: DATE: 08/24/21 TIME: 10:04 Chief Complaint Chief Complaint Acute respiratory failure with hypoxia Sepsis Hospital-acquired pneumonia Acute COPD Acute on chronic renal insufficiency possibly due to vasomotor nephropathy History lung cancer History of bladder cancer with recent placement of left nephrostomy tube Mild malnutrition History of Present Illness History of Present Illness 08/24: Patient seen and evaluated bedside. Afebrile, he denies a sensation of shortness of breath. Receiving breathing treatment this morning. Discussed with Dr. Kyle will continue IV antibiotics for the next few days. Vitals/I&O Vitals/I&O: Vital Signs Date Time Temp Pulse Resp B/P (MAP) Pulse Ox O2 Delivery O2 Flow Rate FiO2 08/24/21 09:30 93 Nasal Cannula 4.0 08/24/21 07:00 98.2 94 18 166/78 (107) 98.2 I & O 08/23/21 08/23/21 08/24/21 15:00 23:00 07:00 Intake Total 180 ml Output Total 500 ml 600 ml Balance -320 ml -600 ml Physical Exam General: Alert, Oriented X3, Cooperative Heart: Regular rate Lungs: Crackles, Other Abdomen: Soft, No tenderness Extremities: No clubbing, No cyanosis Skin: No rashes, No breakdown Labs Labs: Laboratory Tests Test 08/23/21 11:36 08/24/21 05:25 White Blood Count 17.1 x10^3/uL (4.0-11.0) 15.7 x10^3/uL (4.0-11.0) Red Blood Count 3.07 x10^6/uL (4.30-5.70) 3.00 x10^6/uL (4.30-5.70) Hemoglobin 9.6 g/dL (13.0-17.5) 9.3 g/dL (13.0-17.5) Hematocrit 29.1 % (39.0-53.0) 28.6 % (39.0-53.0) Mean Corpuscular Volume 95 fL (79-100) 95 fL (79-100) Mean Corpuscular Hemoglobin 31 pg (25-35) 31 pg (25-35) Mean Corpuscular Hemoglobin Concent 33 g/dL (31-37) 32 g/dL (31-37) Red Cell Distribution Width 14.1 % (11.5-14.5) 14.1 % (11.5-14.5) Platelet Count 311 x10^3/uL (140-400) 368 x10^3/uL (140-400) Neutrophils (%) (Auto) 96 % (31-73) 91 % (31-73) Lymphocytes (%) (Auto) 1 % (24-48) 4 % (24-48) Monocytes (%) (Auto) 2 % (0-9) 5 % (0-9) Eosinophils (%) (Auto) 0 % (0-3) 0 % (0-3) Basophils (%) (Auto) 0 % (0-3) 0 % (0-3) Neutrophils # (Auto) 16.4 x10^3/uL (1.8-7.7) 14.2 x10^3/uL (1.8-7.7) Lymphocytes # (Auto) 0.2 x10^3/uL (1.0-4.8) 0.6 x10^3/uL (1.0-4.8) Monocytes # (Auto) 0.4 x10^3/uL (0.0-1.1) 0.8 x10^3/uL (0.0-1.1) Eosinophils # (Auto) 0.0 x10^3/uL (0.0-0.7) 0.0 x10^3/uL (0.0-0.7) Basophils # (Auto) 0.0 x10^3/uL (0.0-0.2) 0.0 x10^3/uL (0.0-0.2) Segmented Neutrophils % 93 % (35-66) Band Neutrophils % 5 % (0-9) Lymphocytes % 1 % (24-48) Monocytes % 1 % (0-10) Platelet Estimate Adequate (ADEQUATE) Sodium Level 138 mmol/L (136-145) 140 mmol/L (136-145) Potassium Level 4.9 mmol/L (3.5-5.1) 5.0 mmol/L (3.5-5.1) Chloride Level 99 mmol/L (98-107) 103 mmol/L (98-107) Carbon Dioxide Level 27 mmol/L (21-32) 25 mmol/L (21-32) Anion Gap 12 (6-14) 12 (6-14) Blood Urea Nitrogen 47 mg/dL (8-26) 51 mg/dL (8-26) Creatinine 2.8 mg/dL (0.7-1.3) 2.5 mg/dL (0.7-1.3) Estimated GFR (Cockcroft-Gault) 21.5 24.5 BUN/Creatinine Ratio 17 (6-20) Glucose Level 270 mg/dL (70-99) 118 mg/dL (70-99) Calcium Level 8.3 mg/dL (8.5-10.1) 8.8 mg/dL (8.5-10.1) Total Bilirubin 0.5 mg/dL (0.2-1.0) Aspartate Amino Transf (AST/SGOT) 14 U/L (15-37) Alanine Aminotransferase (ALT/SGPT) 17 U/L (16-63) Alkaline Phosphatase 50 U/L (46-116) Total Protein 6.2 g/dL (6.4-8.2) Albumin 2.7 g/dL (3.4-5.0) Albumin/Globulin Ratio 0.8 (1.0-1.7) Procalcitonin 0.66 ng/mL (0.00-0.10) Comment Review of Relevant I have reviewed the following items earlene (where applicable) has been applied. Medications: Current Medications Medications (Trade) Dose Ordered Sig/Dominga Route PRN Reason Start Time Stop Time Status Last Admin Dose Admin Zolpidem Tartrate (Ambien) 5 mg PRN QHS PRN PO INSOMNIA, MAY REPEAT IN 1HR 08/23/21 11:30 08/23/21 22:45 Heparin Sodium (Porcine) (Heparin Sodium) 5,000 unit Q12HR SQ 08/23/21 21:00 08/24/21 08:54 Cefepime HCl (Maxipime) 2 gm Q24H IVP 08/23/21 12:00 08/23/21 12:37 Vancomycin HCl 1.5 gm/Dextrose 500 ml @ 250 mls/hr 1X ONCE IV 08/23/21 13:00 08/23/21 14:59 DC 08/23/21 14:10 Lactobacillus Rhamnosus (Culturelle) 1 cap BID PO 08/23/21 21:00 08/24/21 08:46 Sodium Chloride 1,000 ml @ 75 mls/hr [id number] IV 08/23/21 13:00 08/24/21 07:19 Linezolid/Dextrose 300 ml @ 300 mls/hr Q12HR IV 08/23/21 21:00 08/24/21 08:45 Albuterol/ Ipratropium (Duoneb) 3 ml RTQID NEB 08/24/21 12:00 08/24/21 09:26 Justifications for Admission Other Justification VERNON PRITCHARD MD August 24, 2021 10:06
[2021-08-24] MEDS: FENOFIBRATE,MICRONIZED 134 MG CAPSULE PO SCH (11:08)
[2021-08-24] MEDS: hydroCHLOROthiazide 12.5 MG TABLET PO SCH (11:08)
[2021-08-24] MEDS: LOSARTAN POTASSIUM 50 MG TABLET. PO SCH (11:08)
[2021-08-24] MEDS: ALLOPURINOL 100 MG TABLET. PO SCH (11:08)
[2021-08-24] MEDS: ASPIRIN ENTERIC COATED 81 MG TABLET.DR. PO SCH (11:08)
[2021-08-24] MEDS: CHOLECALCIFEROL (VITAMIN D3) 1,000 UNIT TABLET PO SCH (11:08)
[2021-08-24] MEDS: CEFEPIME HCL IV Push 2 GM VIAL. IVP SCH (11:10)
[2021-08-24 11:12] VITALS: BP 146/62
[2021-08-24] MEDS: GLIMEPIRIDE 2 MG TABLET. PO SCH (11:12)
--- NOTE | 2021-08-24 11:14 | PDOC ---
PULMONARY PROGRESS NOTES DATE: 08/24/21 TIME: 11:10 Subjective Feels better. Remains on oxygen at 4 L. On home oxygen at 3 L. Vitals Vital Signs Date Time Temp Pulse Resp B/P (MAP) Pulse Ox O2 Delivery O2 Flow Rate FiO2 08/24/21 09:30 93 Nasal Cannula 4.0 08/24/21 07:00 98.2 94 18 166/78 (107) 98.2 General: Alert, No acute distress HEENT: Other Lungs: Other (Decreased breath sounds.) Cardiovascular: S1, S2 Abdomen: Soft, Non-tender Extremities: No Edema Skin: Warm Labs Laboratory Tests Test 08/23/21 11:36 08/24/21 05:25 White Blood Count 17.1 x10^3/uL (4.0-11.0) 15.7 x10^3/uL (4.0-11.0) Red Blood Count 3.07 x10^6/uL (4.30-5.70) 3.00 x10^6/uL (4.30-5.70) Hemoglobin 9.6 g/dL (13.0-17.5) 9.3 g/dL (13.0-17.5) Hematocrit 29.1 % (39.0-53.0) 28.6 % (39.0-53.0) Mean Corpuscular Volume 95 fL (79-100) 95 fL (79-100) Mean Corpuscular Hemoglobin 31 pg (25-35) 31 pg (25-35) Mean Corpuscular Hemoglobin Concent 33 g/dL (31-37) 32 g/dL (31-37) Red Cell Distribution Width 14.1 % (11.5-14.5) 14.1 % (11.5-14.5) Platelet Count 311 x10^3/uL (140-400) 368 x10^3/uL (140-400) Neutrophils (%) (Auto) 96 % (31-73) 91 % (31-73) Lymphocytes (%) (Auto) 1 % (24-48) 4 % (24-48) Monocytes (%) (Auto) 2 % (0-9) 5 % (0-9) Eosinophils (%) (Auto) 0 % (0-3) 0 % (0-3) Basophils (%) (Auto) 0 % (0-3) 0 % (0-3) Neutrophils # (Auto) 16.4 x10^3/uL (1.8-7.7) 14.2 x10^3/uL (1.8-7.7) Lymphocytes # (Auto) 0.2 x10^3/uL (1.0-4.8) 0.6 x10^3/uL (1.0-4.8) Monocytes # (Auto) 0.4 x10^3/uL (0.0-1.1) 0.8 x10^3/uL (0.0-1.1) Eosinophils # (Auto) 0.0 x10^3/uL (0.0-0.7) 0.0 x10^3/uL (0.0-0.7) Basophils # (Auto) 0.0 x10^3/uL (0.0-0.2) 0.0 x10^3/uL (0.0-0.2) Segmented Neutrophils % 93 % (35-66) Band Neutrophils % 5 % (0-9) Lymphocytes % 1 % (24-48) Monocytes % 1 % (0-10) Platelet Estimate Adequate (ADEQUATE) Sodium Level 138 mmol/L (136-145) 140 mmol/L (136-145) Potassium Level 4.9 mmol/L (3.5-5.1) 5.0 mmol/L (3.5-5.1) Chloride Level 99 mmol/L (98-107) 103 mmol/L (98-107) Carbon Dioxide Level 27 mmol/L (21-32) 25 mmol/L (21-32) Anion Gap 12 (6-14) 12 (6-14) Blood Urea Nitrogen 47 mg/dL (8-26) 51 mg/dL (8-26) Creatinine 2.8 mg/dL (0.7-1.3) 2.5 mg/dL (0.7-1.3) Estimated GFR (Cockcroft-Gault) 21.5 24.5 BUN/Creatinine Ratio 17 (6-20) Glucose Level 270 mg/dL (70-99) 118 mg/dL (70-99) Calcium Level 8.3 mg/dL (8.5-10.1) 8.8 mg/dL (8.5-10.1) Total Bilirubin 0.5 mg/dL (0.2-1.0) Aspartate Amino Transf (AST/SGOT) 14 U/L (15-37) Alanine Aminotransferase (ALT/SGPT) 17 U/L (16-63) Alkaline Phosphatase 50 U/L (46-116) Total Protein 6.2 g/dL (6.4-8.2) Albumin 2.7 g/dL (3.4-5.0) Albumin/Globulin Ratio 0.8 (1.0-1.7) Procalcitonin 0.66 ng/mL (0.00-0.10) Laboratory Tests Test 08/23/21 11:36 08/24/21 05:25 White Blood Count 17.1 x10^3/uL (4.0-11.0) 15.7 x10^3/uL (4.0-11.0) Red Blood Count 3.07 x10^6/uL (4.30-5.70) 3.00 x10^6/uL (4.30-5.70) Hemoglobin 9.6 g/dL (13.0-17.5) 9.3 g/dL (13.0-17.5) Hematocrit 29.1 % (39.0-53.0) 28.6 % (39.0-53.0) Mean Corpuscular Volume 95 fL (79-100) 95 fL (79-100) Mean Corpuscular Hemoglobin 31 pg (25-35) 31 pg (25-35) Mean Corpuscular Hemoglobin Concent 33 g/dL (31-37) 32 g/dL (31-37) Red Cell Distribution Width 14.1 % (11.5-14.5) 14.1 % (11.5-14.5) Platelet Count 311 x10^3/uL (140-400) 368 x10^3/uL (140-400) Neutrophils (%) (Auto) 96 % (31-73) 91 % (31-73) Lymphocytes (%) (Auto) 1 % (24-48) 4 % (24-48) Monocytes (%) (Auto) 2 % (0-9) 5 % (0-9) Eosinophils (%) (Auto) 0 % (0-3) 0 % (0-3) Basophils (%) (Auto) 0 % (0-3) 0 % (0-3) Neutrophils # (Auto) 16.4 x10^3/uL (1.8-7.7) 14.2 x10^3/uL (1.8-7.7) Lymphocytes # (Auto) 0.2 x10^3/uL (1.0-4.8) 0.6 x10^3/uL (1.0-4.8) Monocytes # (Auto) 0.4 x10^3/uL (0.0-1.1) 0.8 x10^3/uL (0.0-1.1) Eosinophils # (Auto) 0.0 x10^3/uL (0.0-0.7) 0.0 x10^3/uL (0.0-0.7) Basophils # (Auto) 0.0 x10^3/uL (0.0-0.2) 0.0 x10^3/uL (0.0-0.2) Segmented Neutrophils % 93 % (35-66) Band Neutrophils % 5 % (0-9) Lymphocytes % 1 % (24-48) Monocytes % 1 % (0-10) Platelet Estimate Adequate (ADEQUATE) Sodium Level 138 mmol/L (136-145) 140 mmol/L (136-145) Potassium Level 4.9 mmol/L (3.5-5.1) 5.0 mmol/L (3.5-5.1) Chloride Level 99 mmol/L (98-107) 103 mmol/L (98-107) Carbon Dioxide Level 27 mmol/L (21-32) 25 mmol/L (21-32) Anion Gap 12 (6-14) 12 (6-14) Blood Urea Nitrogen 47 mg/dL (8-26) 51 mg/dL (8-26) Creatinine 2.8 mg/dL (0.7-1.3) 2.5 mg/dL (0.7-1.3) Estimated GFR (Cockcroft-Gault) 21.5 24.5 BUN/Creatinine Ratio 17 (6-20) Glucose Level 270 mg/dL (70-99) 118 mg/dL (70-99) Calcium Level 8.3 mg/dL (8.5-10.1) 8.8 mg/dL (8.5-10.1) Total Bilirubin 0.5 mg/dL (0.2-1.0) Aspartate Amino Transf (AST/SGOT) 14 U/L (15-37) Alanine Aminotransferase (ALT/SGPT) 17 U/L (16-63) Alkaline Phosphatase 50 U/L (46-116) Total Protein 6.2 g/dL (6.4-8.2) Albumin 2.7 g/dL (3.4-5.0) Albumin/Globulin Ratio 0.8 (1.0-1.7) Procalcitonin 0.66 ng/mL (0.00-0.10) Medications Active Scripts Medications Dose Route/Sig Max Daily Dose Days Date Category Dose Instructions Vitamin C (Ascorbic Acid) 1,000 Mg Tablet 3,000 Mg PO TID 14 12/26/20 Rx Hydrochlorothiazide Capsule (Hydrochlorothiazide) 12.5 Mg Capsule 12.5 Mg PO DAILY 12/25/20 Reported Multi Vitamin Daily (Multivitamin) 1 Each Tablet 1 Tab PO DAILY 30 12/25/20 Reported Proair Hfa Inhaler (Albuterol Sulfate) 8.5 Gm Hfa.aer.ad 2 Puff IH PRN Q4-6HRS PRN 21 12/24/20 Rx Inhale 2 puffs every 4-6 hours as needed for shortness of breath. Aspir-Low (Aspirin) 81 Mg Tablet.dr 81 Mg PO DAILY 01/07/19 Reported Vitamin D3 (Cholecalciferol (Vitamin D3)) 1,000 Unit Tablet 1 Tab PO DAILY 06/04/18 Reported Fenofibrate (Fenofibrate Nanocrystallized) 145 Mg Tablet 1 Tab PO DAILY 06/04/18 Reported Allopurinol 100 Mg Tablet 1 Tab PO DAILY 06/04/18 Reported Impression . 1. Acute on chronic hypoxemic respiratory failure, multifactorial. 2. Abnormal CT revealing a new consolidation in right lower lobe with a small effusion, compatible with healthcare-acquired pneumonia, suspect gram-negative, possibly gram-positive. 3. History of lung cancer. 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 4. New left upper lobe enlarging mass, treated with SBRT. Last PET scan revealed disease being under control. 5. Status post left nephrostomy tube, recently hospitalized at [facility] for bladder cancer, had removal of the bladder tumor. 6. Acute on chronic renal failure. 7. Leukocytosis. 8. Severe protein malnutrition, present upon admission. 9. Fever, rule out sepsis. 10. Type 2 diabetes. 11. Coronary artery disease. 12. Hypertension. Plan . PLAN: 1. continue empiric antibiotics with cefepime. 2. Zyvox added to cefepime. 3. Check nasal MRSA screen. 4. Follow blood cultures. 5. Follow clinical course and make further recommendations. Once the patient is discharged, I will see him in followup in the office in 2-4 weeks post-discharge with NIRMAL Isaacs MD August 24, 2021 11:14
[2021-08-24] MEDS ORDERED: POLYETHYLENE GLYCOL 3350 17 GM PACKET. PO ONE (14:15)
[2021-08-24] MEDS: ASCORBIC ACID 1,000 MG TABLET PO SCH ×2 (14:29→20:52)
[2021-08-24] MEDS ORDERED: POLYETHYLENE GLYCOL 3350 17 GM PACKET. PO PRN (14:45)
[2021-08-24 15:00] VITALS: BP 176/75
[2021-08-24 19:00] VITALS: BP 132/64
[2021-08-24] MEDS: ZOLPIDEM 5 MG TABLET. PO PRN (20:55)
[2021-08-24] MEDS ORDERED: METOPROLOL SUCC 24HR ER 25 MG TAB.ER.24H. PO SCH (21:00)
[2021-08-24 23:00] VITALS: BP 140/70
[2021-08-25 03:15] VITALS: BP 139/61
[2021-08-25] MEDS ORDERED: ALBUTEROL SULFATE 2.5 MG/3 ML NEBU. NEB PRN (04:45)
[2021-08-25] MEDS: IV NORMAL SALINE 1000ML BAG 1,000 ML IV SCH ×2 (05:17→17:10)
[2021-08-25 07:00] VITALS: BP 146/69
[2021-08-25] MEDS: IPRATRPIUM/ALBUTEROL 0.5/2.5MG 3 ML NEBU. NEB SCH ×4 (07:18→20:40)
[2021-08-25 07:37] LABS: BASO % 0 % (0-3); EOS # 0.2 x10^3/uL (0.0-0.7); EOS % 1 % (0-3); HEMATOCRIT 27.9 % (39.0-53.0); HEMOGLOBIN 9.1 g/dL (13.0-17.5); LYMPH # 0.5 x10^3/uL (1.0-4.8); LYMPH % 5 % (24-48); MEAN CORPUSCULAR HEMOGLOBIN 31 pg (25-35); MEAN CORPUSCULAR HGB CONC 33 g/dL (31-37); MEAN CORPUSCULAR VOLUME 95 fL (79-100); MONO # 0.8 x10^3/uL (0.0-1.1); MONO % 7 % (0-9); NEUT # 9.9 x10^3/uL (1.8-7.7); NEUT % 87 % (31-73); PLATELET COUNT 365 x10^3/uL (140-400); RED BLOOD COUNT 2.94 x10^6/uL (4.30-5.70); RED CELL DISTRIBUTION WIDTH 14.2 % (11.5-14.5); WHITE BLOOD COUNT 11.4 x10^3/uL (4.0-11.0)
[2021-08-25 07:50] LABS: CALCIUM 8.6 mg/dL (8.5-10.1); CREATININE 2.7 mg/dL (0.7-1.3); GFR 22.4; POTASSIUM 4.2 mmol/L (3.5-5.1)
[2021-08-25] MEDS: hydroCHLOROthiazide 12.5 MG TABLET PO SCH (08:51)
[2021-08-25] MEDS: ASPIRIN ENTERIC COATED 81 MG TABLET.DR. PO SCH (08:51)
[2021-08-25] MEDS: CHOLECALCIFEROL (VITAMIN D3) 1,000 UNIT TABLET PO SCH (08:51)
[2021-08-25] MEDS: FENOFIBRATE,MICRONIZED 134 MG CAPSULE PO SCH (08:51)
[2021-08-25] MEDS: LACTOBACILLUS RHAMNOSUS GG 1 CAPSULE. PO SCH ×2 (08:51→20:54)
[2021-08-25] MEDS: GLIMEPIRIDE 2 MG TABLET. PO SCH (08:51)
[2021-08-25] MEDS: ASCORBIC ACID 1,000 MG TABLET PO SCH ×3 (08:51→20:54)
[2021-08-25] MEDS: LOSARTAN POTASSIUM 50 MG TABLET. PO SCH (08:51)
[2021-08-25] MEDS: ALLOPURINOL 100 MG TABLET. PO SCH (08:52)
[2021-08-25] MEDS: METOPROLOL SUCC 24HR ER 50 MG TAB.ER.24H. PO SCH (08:52)
[2021-08-25] MEDS: DOCUSATE SODIUM 100 MG CAPSULE. PO PRN ×2 (08:54→21:11)
[2021-08-25] MEDS: HEPARIN for SUB-Q USE 5,000 UNIT/ML VIAL. SQ SCH ×2 (09:05→20:57)
--- NOTE | 2021-08-25 09:06 | PDOC ---
PULMONARY PROGRESS NOTES DATE: 08/25/21 TIME: 09:05 Subjective Feels better. Remains on oxygen at 4 L. On home oxygen at 3 L. Patient has difficulty in coughing up thick phlegm. Vitals Vital Signs Date Time Temp Pulse Resp B/P (MAP) Pulse Ox O2 Delivery O2 Flow Rate FiO2 08/25/21 08:52 100 146/69 08/25/21 07:18 97 Nasal Cannula 3.0 08/25/21 07:00 97.8 18 97.8 General: Alert, No acute distress HEENT: Other Lungs: Other (Decreased breath sounds.) Cardiovascular: S1, S2 Abdomen: Soft, Non-tender Extremities: No Edema Skin: Warm Labs Laboratory Tests Test 08/23/21 11:36 08/23/21 14:15 08/24/21 05:25 08/25/21 07:02 White Blood Count 17.1 x10^3/uL (4.0-11.0) 15.7 x10^3/uL (4.0-11.0) 11.4 x10^3/uL (4.0-11.0) Red Blood Count 3.07 x10^6/uL (4.30-5.70) 3.00 x10^6/uL (4.30-5.70) 2.94 x10^6/uL (4.30-5.70) Hemoglobin 9.6 g/dL (13.0-17.5) 9.3 g/dL (13.0-17.5) 9.1 g/dL (13.0-17.5) Hematocrit 29.1 % (39.0-53.0) 28.6 % (39.0-53.0) 27.9 % (39.0-53.0) Mean Corpuscular Volume 95 fL (79-100) 95 fL (79-100) 95 fL (79-100) Mean Corpuscular Hemoglobin 31 pg (25-35) 31 pg (25-35) 31 pg (25-35) Mean Corpuscular Hemoglobin Concent 33 g/dL (31-37) 32 g/dL (31-37) 33 g/dL (31-37) Red Cell Distribution Width 14.1 % (11.5-14.5) 14.1 % (11.5-14.5) 14.2 % (11.5-14.5) Platelet Count 311 x10^3/uL (140-400) 368 x10^3/uL (140-400) 365 x10^3/uL (140-400) Neutrophils (%) (Auto) 96 % (31-73) 91 % (31-73) 87 % (31-73) Lymphocytes (%) (Auto) 1 % (24-48) 4 % (24-48) 5 % (24-48) Monocytes (%) (Auto) 2 % (0-9) 5 % (0-9) 7 % (0-9) Eosinophils (%) (Auto) 0 % (0-3) 0 % (0-3) 1 % (0-3) Basophils (%) (Auto) 0 % (0-3) 0 % (0-3) 0 % (0-3) Neutrophils # (Auto) 16.4 x10^3/uL (1.8-7.7) 14.2 x10^3/uL (1.8-7.7) 9.9 x10^3/uL (1.8-7.7) Lymphocytes # (Auto) 0.2 x10^3/uL (1.0-4.8) 0.6 x10^3/uL (1.0-4.8) 0.5 x10^3/uL (1.0-4.8) Monocytes # (Auto) 0.4 x10^3/uL (0.0-1.1) 0.8 x10^3/uL (0.0-1.1) 0.8 x10^3/uL (0.0-1.1) Eosinophils # (Auto) 0.0 x10^3/uL (0.0-0.7) 0.0 x10^3/uL (0.0-0.7) 0.2 x10^3/uL (0.0-0.7) Basophils # (Auto) 0.0 x10^3/uL (0.0-0.2) 0.0 x10^3/uL (0.0-0.2) 0.0 x10^3/uL (0.0-0.2) Segmented Neutrophils % 93 % (35-66) Band Neutrophils % 5 % (0-9) Lymphocytes % 1 % (24-48) Monocytes % 1 % (0-10) Platelet Estimate Adequate (ADEQUATE) Sodium Level 138 mmol/L (136-145) 140 mmol/L (136-145) 143 mmol/L (136-145) Potassium Level 4.9 mmol/L (3.5-5.1) 5.0 mmol/L (3.5-5.1) 4.2 mmol/L (3.5-5.1) Chloride Level 99 mmol/L (98-107) 103 mmol/L (98-107) 105 mmol/L (98-107) Carbon Dioxide Level 27 mmol/L (21-32) 25 mmol/L (21-32) 29 mmol/L (21-32) Anion Gap 12 (6-14) 12 (6-14) 9 (6-14) Blood Urea Nitrogen 47 mg/dL (8-26) 51 mg/dL (8-26) 52 mg/dL (8-26) Creatinine 2.8 mg/dL (0.7-1.3) 2.5 mg/dL (0.7-1.3) 2.7 mg/dL (0.7-1.3) Estimated GFR (Cockcroft-Gault) 21.5 24.5 22.4 BUN/Creatinine Ratio 17 (6-20) Glucose Level 270 mg/dL (70-99) 118 mg/dL (70-99) 61 mg/dL (70-99) Calcium Level 8.3 mg/dL (8.5-10.1) 8.8 mg/dL (8.5-10.1) 8.6 mg/dL (8.5-10.1) Total Bilirubin 0.5 mg/dL (0.2-1.0) Aspartate Amino Transf (AST/SGOT) 14 U/L (15-37) Alanine Aminotransferase (ALT/SGPT) 17 U/L (16-63) Alkaline Phosphatase 50 U/L (46-116) Total Protein 6.2 g/dL (6.4-8.2) Albumin 2.7 g/dL (3.4-5.0) Albumin/Globulin Ratio 0.8 (1.0-1.7) Nasal Screen MRSA (PCR) Negative (NEGATIVE) Procalcitonin 0.66 ng/mL (0.00-0.10) Laboratory Tests Test 08/25/21 07:02 White Blood Count 11.4 x10^3/uL (4.0-11.0) Red Blood Count 2.94 x10^6/uL (4.30-5.70) Hemoglobin 9.1 g/dL (13.0-17.5) Hematocrit 27.9 % (39.0-53.0) Mean Corpuscular Volume 95 fL (79-100) Mean Corpuscular Hemoglobin 31 pg (25-35) Mean Corpuscular Hemoglobin Concent 33 g/dL (31-37) Red Cell Distribution Width 14.2 % (11.5-14.5) Platelet Count 365 x10^3/uL (140-400) Neutrophils (%) (Auto) 87 % (31-73) Lymphocytes (%) (Auto) 5 % (24-48) Monocytes (%) (Auto) 7 % (0-9) Eosinophils (%) (Auto) 1 % (0-3) Basophils (%) (Auto) 0 % (0-3) Neutrophils # (Auto) 9.9 x10^3/uL (1.8-7.7) Lymphocytes # (Auto) 0.5 x10^3/uL (1.0-4.8) Monocytes # (Auto) 0.8 x10^3/uL (0.0-1.1) Eosinophils # (Auto) 0.2 x10^3/uL (0.0-0.7) Basophils # (Auto) 0.0 x10^3/uL (0.0-0.2) Sodium Level 143 mmol/L (136-145) Potassium Level 4.2 mmol/L (3.5-5.1) Chloride Level 105 mmol/L (98-107) Carbon Dioxide Level 29 mmol/L (21-32) Anion Gap 9 (6-14) Blood Urea Nitrogen 52 mg/dL (8-26) Creatinine 2.7 mg/dL (0.7-1.3) Estimated GFR (Cockcroft-Gault) 22.4 Glucose Level 61 mg/dL (70-99) Calcium Level 8.6 mg/dL (8.5-10.1) Medications Active Scripts Medications Dose Route/Sig Max Daily Dose Days Date Category Dose Instructions Vitamin C (Ascorbic Acid) 1,000 Mg Tablet 3,000 Mg PO TID 14 12/26/20 Rx Hydrochlorothiazide Capsule (Hydrochlorothiazide) 12.5 Mg Capsule 12.5 Mg PO DAILY 12/25/20 Reported Multi Vitamin Daily (Multivitamin) 1 Each Tablet 1 Tab PO DAILY 30 12/25/20 Reported Proair Hfa Inhaler (Albuterol Sulfate) 8.5 Gm Hfa.aer.ad 2 Puff IH PRN Q4-6HRS PRN 21 12/24/20 Rx Inhale 2 puffs every 4-6 hours as needed for shortness of breath. Aspir-Low (Aspirin) 81 Mg Tablet.dr 81 Mg PO DAILY 01/07/19 Reported Vitamin D3 (Cholecalciferol (Vitamin D3)) 1,000 Unit Tablet 1 Tab PO DAILY 06/04/18 Reported Fenofibrate (Fenofibrate Nanocrystallized) 145 Mg Tablet 1 Tab PO DAILY 06/04/18 Reported Allopurinol 100 Mg Tablet 1 Tab PO DAILY 06/04/18 Reported Impression . 1. Acute on chronic hypoxemic respiratory failure, multifactorial. 2. Abnormal CT revealing a new consolidation in right lower lobe with a small effusion, compatible with healthcare-acquired pneumonia, suspect gram-negative, possibly gram-positive. 3. History of lung cancer. 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 4. New left upper lobe enlarging mass, treated with SBRT. Last PET scan revealed disease being under control. 5. Status post left nephrostomy tube, recently hospitalized at [facility] for bladder cancer, had removal of the bladder tumor. 6. Acute on chronic renal failure. 7. Leukocytosis. 8. Severe protein malnutrition, present upon admission. 9. Fever, rule out sepsis. 10. Type 2 diabetes. 11. Coronary artery disease. 12. Hypertension. Plan . PLAN: 1. continue empiric antibiotics with cefepime./Zyvox. 2. We will add Mucinex.. 3. We will repeat chest x-ray today. 4. Follow blood cultures. 5. Follow clinical course and make further recommendations. Once the patient is discharged, I will see him in followup in the office in 2-4 weeks post-discharge with NIRMAL Isaacs MD August 25, 2021 09:06
[2021-08-25 11:00] VITALS: BP 148/69
--- NOTE | 2021-08-25 11:46 | PDOC ---
[employer] PROGRESS NOTE Date of Service DOS: DATE: 08/25/21 TIME: 11:45 Chief Complaint Chief Complaint Acute respiratory failure with hypoxia Sepsis Hospital-acquired pneumonia Acute COPD Acute on chronic renal insufficiency possibly due to vasomotor nephropathy History lung cancer History of bladder cancer with recent placement of left nephrostomy tube Mild malnutrition History of Present Illness History of Present Illness 08/25: Patient seen and evaluated. He reports some chest congestion, but no worsening shortness of breath. His MRSA swab was negative, and will discontinue Zyvox. WBC 11.4. Continue IV cefepime. 08/24: Patient seen and evaluated bedside. Afebrile, he denies a sensation of shortness of breath. Receiving breathing treatment this morning. Discussed with Dr. Kyle will continue IV antibiotics for the next few days. Vitals/I&O Vitals/I&O: Vital Signs Date Time Temp Pulse Resp B/P (MAP) Pulse Ox O2 Delivery O2 Flow Rate FiO2 08/25/21 11:01 96 Nasal Cannula 4.0 08/25/21 11:00 98.2 98 18 148/69 (95) 98.2 I & O 08/24/21 08/24/21 08/25/21 15:00 23:00 07:00 Intake Total 420 ml 1680 ml Output Total 850 ml Balance 420 ml 1680 ml -850 ml Physical Exam General: Alert, Oriented X3, Cooperative Heart: Regular rate Lungs: Other (Decreased breath sounds.) Abdomen: Soft, No tenderness Extremities: No clubbing, No cyanosis Skin: No rashes, No breakdown Labs Labs: Laboratory Tests Test 08/25/21 07:02 White Blood Count 11.4 x10^3/uL (4.0-11.0) Red Blood Count 2.94 x10^6/uL (4.30-5.70) Hemoglobin 9.1 g/dL (13.0-17.5) Hematocrit 27.9 % (39.0-53.0) Mean Corpuscular Volume 95 fL (79-100) Mean Corpuscular Hemoglobin 31 pg (25-35) Mean Corpuscular Hemoglobin Concent 33 g/dL (31-37) Red Cell Distribution Width 14.2 % (11.5-14.5) Platelet Count 365 x10^3/uL (140-400) Neutrophils (%) (Auto) 87 % (31-73) Lymphocytes (%) (Auto) 5 % (24-48) Monocytes (%) (Auto) 7 % (0-9) Eosinophils (%) (Auto) 1 % (0-3) Basophils (%) (Auto) 0 % (0-3) Neutrophils # (Auto) 9.9 x10^3/uL (1.8-7.7) Lymphocytes # (Auto) 0.5 x10^3/uL (1.0-4.8) Monocytes # (Auto) 0.8 x10^3/uL (0.0-1.1) Eosinophils # (Auto) 0.2 x10^3/uL (0.0-0.7) Basophils # (Auto) 0.0 x10^3/uL (0.0-0.2) Sodium Level 143 mmol/L (136-145) Potassium Level 4.2 mmol/L (3.5-5.1) Chloride Level 105 mmol/L (98-107) Carbon Dioxide Level 29 mmol/L (21-32) Anion Gap 9 (6-14) Blood Urea Nitrogen 52 mg/dL (8-26) Creatinine 2.7 mg/dL (0.7-1.3) Estimated GFR (Cockcroft-Gault) 22.4 Glucose Level 61 mg/dL (70-99) Calcium Level 8.6 mg/dL (8.5-10.1) Comment Review of Relevant I have reviewed the following items earlene (where applicable) has been applied. Medications: Current Medications Medications (Trade) Dose Ordered Sig/Dominga Route PRN Reason Start Time Stop Time Status Last Admin Dose Admin Albuterol/ Ipratropium (Duoneb) 3 ml RTQID NEB 08/24/21 12:00 08/25/21 11:01 Ascorbic Acid (Vitamin C) 3,000 mg TID PO 08/24/21 14:00 08/25/21 08:51 Metoprolol Succinate (Toprol Xl) 50 mg DAILY PO 08/25/21 09:00 08/25/21 08:52 Polyethylene Glycol (miraLAX PACKET) 17 gm 1X ONCE PO 08/24/21 14:15 08/24/21 14:19 DC 08/24/21 14:31 Docusate Sodium (Colace) 100 mg PRN BID PRN PO HARD STOOLS 08/24/21 14:15 08/25/21 08:54 Albuterol Sulfate (Ventolin Neb Soln) 2.5 mg PRN Q2HRS PRN NEB SHORTNESS OF BREATH 08/25/21 04:45 08/25/21 04:57 Guaifenesin (Mucinex) 600 mg BID PO 08/25/21 09:00 08/25/21 08:54 Justifications for Admission Other Justification VERNON PRITCHARD MD August 25, 2021 11:46
[2021-08-25] MEDS: CEFEPIME HCL IV Push 2 GM VIAL. IVP SCH (11:57)
--- NOTE | 2021-08-25 12:22 | RAD ---
XR CHEST 1V History: Reason: pna / Spl. Instructions: / History: Comparison: December 24, [address] December 30, 2020. CT the 2021 Findings: Ill-defined and patchy opacities within the bilateral mid lungs and right lung base. Small right pleu ral effusion. No pneumothorax. Unchanged heart size. Glenohumeral DJD. Impression: 1. Ill-defined patchy mid lung and right basilar opacities, potentially decreased within the right l albin base compared to prior. 2. Small right pleural effusion, unchanged. Electronically signed by: Matthew Varma DO (08/25/2021 12:20 PM) [id number]
[2021-08-25 15:00] VITALS: BP 135/63
[2021-08-25] MEDS: INSULIN LISPRO 300 UNITS/3 ML VIAL. SQ SCH (16:50)
[2021-08-25 19:00] VITALS: BP 131/62
[2021-08-25] MEDS: ZOLPIDEM 5 MG TABLET. PO PRN (20:54)
[2021-08-25 23:00] VITALS: BP 114/48
[2021-08-26 03:00] VITALS: BP 134/62
[2021-08-26] MEDS: DEXTROSE 50% 25 GM / 50ML DISP.SYRIN. IV PRN ×2 (03:16→07:13)
[2021-08-26] MEDS: IV NORMAL SALINE 1000ML BAG 1,000 ML IV SCH ×2 (05:04→21:12)
[2021-08-26 07:00] VITALS: BP 146/64
[2021-08-26] MEDS: IPRATRPIUM/ALBUTEROL 0.5/2.5MG 3 ML NEBU. NEB SCH ×4 (07:10→21:06)
[2021-08-26 07:56] LABS: BASO % 0 % (0-3); EOS # 0.1 x10^3/uL (0.0-0.7); EOS % 1 % (0-3); HEMATOCRIT 27.7 % (39.0-53.0); LYMPH # 0.6 x10^3/uL (1.0-4.8); LYMPH % 6 % (24-48); MEAN CORPUSCULAR HEMOGLOBIN 31 pg (25-35); MEAN CORPUSCULAR HGB CONC 33 g/dL (31-37); MEAN CORPUSCULAR VOLUME 96 fL (79-100); MONO # 0.8 x10^3/uL (0.0-1.1); MONO % 7 % (0-9); NEUT # 9.4 x10^3/uL (1.8-7.7); NEUT % 87 % (31-73); PLATELET COUNT 376 x10^3/uL (140-400); RED BLOOD COUNT 2.88 x10^6/uL (4.30-5.70); RED CELL DISTRIBUTION WIDTH 14.2 % (11.5-14.5); WHITE BLOOD COUNT 10.9 x10^3/uL (4.0-11.0)
[2021-08-26] MEDS: INSULIN LISPRO 300 UNITS/3 ML VIAL. SQ SCH ×3 (08:00→17:00)
[2021-08-26 08:19] LABS: CALCIUM 8.8 mg/dL (8.5-10.1); CREATININE 2.4 mg/dL (0.7-1.3); GFR 25.7; POTASSIUM 4.4 mmol/L (3.5-5.1)
--- NOTE | 2021-08-26 08:44 | PDOC ---
[employer] PROGRESS NOTE Date of Service DOS: DATE: 08/26/21 TIME: 08:41 Chief Complaint Chief Complaint Acute respiratory failure with hypoxia Sepsis Hospital-acquired pneumonia Acute COPD Acute on chronic renal insufficiency possibly due to vasomotor nephropathy History lung cancer History of bladder cancer with recent placement of left nephrostomy tube Mild malnutrition History of Present Illness History of Present Illness 08/26: Patient seen and evaluated with son-in-law at bedside. States he feels "jittery" this morning. Did just have breathing treatment. Morning labs still pending. Chest x-ray yesterday showed. Ill-defined patchy mid lung base and right basilar opacities, possibly decreased compared to prior exam. We will recheck chest x-ray tomorrow. Continue with IV antibiotics. 08/25: Patient seen and evaluated. He reports some chest congestion, but no worsening shortness of breath. His MRSA swab was negative, and will discontinue Zyvox. WBC 11.4. Continue IV cefepime. 08/24: Patient seen and evaluated bedside. Afebrile, he denies a sensation of shortness of breath. Receiving breathing treatment this morning. Discussed with Dr. Kyle will continue IV antibiotics for the next few days. Vitals/I&O Vitals/I&O: Vital Signs Date Time Temp Pulse Resp B/P (MAP) Pulse Ox O2 Delivery O2 Flow Rate FiO2 08/26/21 07:10 98 Nasal Cannula 4.0 08/26/21 07:00 97.8 96 20 146/64 (91) 97.8 I & O 08/25/21 08/25/21 08/26/21 15:00 23:00 07:00 Intake Total 300 ml 855 ml 0 ml Output Total 400 ml 200 ml 100 ml Balance -100 ml 655 ml -100 ml Physical Exam General: Alert, Oriented X3, Cooperative Heart: Regular rate Lungs: Other (Decreased breath sounds.) Abdomen: Soft, No tenderness Extremities: No clubbing, No cyanosis Skin: No rashes, No breakdown Labs Labs: Laboratory Tests Test 08/25/21 16:48 08/25/21 20:15 08/26/21 03:14 08/26/21 03:55 Glucose (Fingerstick) 66 mg/dL (70-99) 72 mg/dL (70-99) 55 mg/dL (70-99) 112 mg/dL (70-99) Test 08/26/21 06:20 08/26/21 07:03 08/26/21 07:36 White Blood Count 10.9 x10^3/uL (4.0-11.0) Red Blood Count 2.88 x10^6/uL (4.30-5.70) Hemoglobin 9.0 g/dL (13.0-17.5) Hematocrit 27.7 % (39.0-53.0) Mean Corpuscular Volume 96 fL (79-100) Mean Corpuscular Hemoglobin 31 pg (25-35) Mean Corpuscular Hemoglobin Concent 33 g/dL (31-37) Red Cell Distribution Width 14.2 % (11.5-14.5) Platelet Count 376 x10^3/uL (140-400) Neutrophils (%) (Auto) 87 % (31-73) Lymphocytes (%) (Auto) 6 % (24-48) Monocytes (%) (Auto) 7 % (0-9) Eosinophils (%) (Auto) 1 % (0-3) Basophils (%) (Auto) 0 % (0-3) Neutrophils # (Auto) 9.4 x10^3/uL (1.8-7.7) Lymphocytes # (Auto) 0.6 x10^3/uL (1.0-4.8) Monocytes # (Auto) 0.8 x10^3/uL (0.0-1.1) Eosinophils # (Auto) 0.1 x10^3/uL (0.0-0.7) Basophils # (Auto) 0.0 x10^3/uL (0.0-0.2) Sodium Level 144 mmol/L (136-145) Potassium Level 4.4 mmol/L (3.5-5.1) Chloride Level 107 mmol/L (98-107) Carbon Dioxide Level 27 mmol/L (21-32) Anion Gap 10 (6-14) Blood Urea Nitrogen 47 mg/dL (8-26) Creatinine 2.4 mg/dL (0.7-1.3) Estimated GFR (Cockcroft-Gault) 25.7 Glucose Level 47 mg/dL (70-99) Calcium Level 8.8 mg/dL (8.5-10.1) Glucose (Fingerstick) 49 mg/dL (70-99) 145 mg/dL (70-99) Comment Review of Relevant I have reviewed the following items earlene (where applicable) has been applied. Medications: Current Medications Medications (Trade) Dose Ordered Sig/Dominga Route PRN Reason Start Time Stop Time Status Last Admin Dose Admin Metoprolol Succinate (Toprol Xl) 50 mg DAILY PO 08/25/21 09:00 08/25/21 08:52 Guaifenesin (Mucinex) 600 mg BID PO 08/25/21 09:00 08/25/21 20:54 Dextrose (Dextrose 50%-Water Syringe) 12.5 gm PRN Q15MIN PRN IV SEE COMMENTS 08/25/21 13:15 08/26/21 07:13 Justifications for Admission Other Justification VERNON PRITCHARD MD August 26, 2021 08:44
[2021-08-26] MEDS: hydroCHLOROthiazide 12.5 MG TABLET PO SCH (09:19)
[2021-08-26] MEDS: FENOFIBRATE,MICRONIZED 134 MG CAPSULE PO SCH (09:19)
[2021-08-26] MEDS: CHOLECALCIFEROL (VITAMIN D3) 1,000 UNIT TABLET PO SCH (09:20)
[2021-08-26] MEDS: METOPROLOL SUCC 24HR ER 50 MG TAB.ER.24H. PO SCH (09:20)
[2021-08-26] MEDS: LACTOBACILLUS RHAMNOSUS GG 1 CAPSULE. PO SCH ×2 (09:20→21:12)
[2021-08-26] MEDS: ASPIRIN ENTERIC COATED 81 MG TABLET.DR. PO SCH (09:20)
[2021-08-26] MEDS: LOSARTAN POTASSIUM 50 MG TABLET. PO SCH (09:21)
[2021-08-26] MEDS: ALLOPURINOL 100 MG TABLET. PO SCH (09:22)
[2021-08-26] MEDS: ASCORBIC ACID 1,000 MG TABLET PO SCH ×3 (09:22→21:12)
[2021-08-26] MEDS: HEPARIN for SUB-Q USE 5,000 UNIT/ML VIAL. SQ SCH ×2 (09:25→22:29)
--- NOTE | 2021-08-26 10:43 | PDOC ---
PULMONARY PROGRESS NOTES DATE: 08/26/21 TIME: 10:40 Subjective Patient did not had a good night sleep last night. Patient was lethargic earlier this morning. Blood sugar was 49. Now being corrected. Remains on oxygen at 4 L. On home oxygen at 3 L. Vitals Vital Signs Date Time Temp Pulse Resp B/P (MAP) Pulse Ox O2 Delivery O2 Flow Rate FiO2 08/26/21 09:21 96 146/64 08/26/21 07:10 98 Nasal Cannula 4.0 08/26/21 07:00 97.8 20 97.8 General: Alert, No acute distress Lungs: Other (Decreased breath sounds.) Cardiovascular: S1, S2 Abdomen: Soft, Non-tender Extremities: No Edema Skin: Warm Labs Laboratory Tests Test 08/25/21 07:02 08/25/21 16:48 08/25/21 20:15 08/26/21 03:14 White Blood Count 11.4 x10^3/uL (4.0-11.0) Red Blood Count 2.94 x10^6/uL (4.30-5.70) Hemoglobin 9.1 g/dL (13.0-17.5) Hematocrit 27.9 % (39.0-53.0) Mean Corpuscular Volume 95 fL (79-100) Mean Corpuscular Hemoglobin 31 pg (25-35) Mean Corpuscular Hemoglobin Concent 33 g/dL (31-37) Red Cell Distribution Width 14.2 % (11.5-14.5) Platelet Count 365 x10^3/uL (140-400) Neutrophils (%) (Auto) 87 % (31-73) Lymphocytes (%) (Auto) 5 % (24-48) Monocytes (%) (Auto) 7 % (0-9) Eosinophils (%) (Auto) 1 % (0-3) Basophils (%) (Auto) 0 % (0-3) Neutrophils # (Auto) 9.9 x10^3/uL (1.8-7.7) Lymphocytes # (Auto) 0.5 x10^3/uL (1.0-4.8) Monocytes # (Auto) 0.8 x10^3/uL (0.0-1.1) Eosinophils # (Auto) 0.2 x10^3/uL (0.0-0.7) Basophils # (Auto) 0.0 x10^3/uL (0.0-0.2) Sodium Level 143 mmol/L (136-145) Potassium Level 4.2 mmol/L (3.5-5.1) Chloride Level 105 mmol/L (98-107) Carbon Dioxide Level 29 mmol/L (21-32) Anion Gap 9 (6-14) Blood Urea Nitrogen 52 mg/dL (8-26) Creatinine 2.7 mg/dL (0.7-1.3) Estimated GFR (Cockcroft-Gault) 22.4 Glucose Level 61 mg/dL (70-99) Calcium Level 8.6 mg/dL (8.5-10.1) Glucose (Fingerstick) 66 mg/dL (70-99) 72 mg/dL (70-99) 55 mg/dL (70-99) Test 08/26/21 03:55 08/26/21 06:20 08/26/21 07:03 08/26/21 07:36 Glucose (Fingerstick) 112 mg/dL (70-99) 49 mg/dL (70-99) 145 mg/dL (70-99) White Blood Count 10.9 x10^3/uL (4.0-11.0) Red Blood Count 2.88 x10^6/uL (4.30-5.70) Hemoglobin 9.0 g/dL (13.0-17.5) Hematocrit 27.7 % (39.0-53.0) Mean Corpuscular Volume 96 fL (79-100) Mean Corpuscular Hemoglobin 31 pg (25-35) Mean Corpuscular Hemoglobin Concent 33 g/dL (31-37) Red Cell Distribution Width 14.2 % (11.5-14.5) Platelet Count 376 x10^3/uL (140-400) Neutrophils (%) (Auto) 87 % (31-73) Lymphocytes (%) (Auto) 6 % (24-48) Monocytes (%) (Auto) 7 % (0-9) Eosinophils (%) (Auto) 1 % (0-3) Basophils (%) (Auto) 0 % (0-3) Neutrophils # (Auto) 9.4 x10^3/uL (1.8-7.7) Lymphocytes # (Auto) 0.6 x10^3/uL (1.0-4.8) Monocytes # (Auto) 0.8 x10^3/uL (0.0-1.1) Eosinophils # (Auto) 0.1 x10^3/uL (0.0-0.7) Basophils # (Auto) 0.0 x10^3/uL (0.0-0.2) Sodium Level 144 mmol/L (136-145) Potassium Level 4.4 mmol/L (3.5-5.1) Chloride Level 107 mmol/L (98-107) Carbon Dioxide Level 27 mmol/L (21-32) Anion Gap 10 (6-14) Blood Urea Nitrogen 47 mg/dL (8-26) Creatinine 2.4 mg/dL (0.7-1.3) Estimated GFR (Cockcroft-Gault) 25.7 Glucose Level 47 mg/dL (70-99) Calcium Level 8.8 mg/dL (8.5-10.1) Laboratory Tests Test 08/25/21 16:48 08/25/21 20:15 08/26/21 03:14 08/26/21 03:55 Glucose (Fingerstick) 66 mg/dL (70-99) 72 mg/dL (70-99) 55 mg/dL (70-99) 112 mg/dL (70-99) Test 08/26/21 06:20 08/26/21 07:03 08/26/21 07:36 White Blood Count 10.9 x10^3/uL (4.0-11.0) Red Blood Count 2.88 x10^6/uL (4.30-5.70) Hemoglobin 9.0 g/dL (13.0-17.5) Hematocrit 27.7 % (39.0-53.0) Mean Corpuscular Volume 96 fL (79-100) Mean Corpuscular Hemoglobin 31 pg (25-35) Mean Corpuscular Hemoglobin Concent 33 g/dL (31-37) Red Cell Distribution Width 14.2 % (11.5-14.5) Platelet Count 376 x10^3/uL (140-400) Neutrophils (%) (Auto) 87 % (31-73) Lymphocytes (%) (Auto) 6 % (24-48) Monocytes (%) (Auto) 7 % (0-9) Eosinophils (%) (Auto) 1 % (0-3) Basophils (%) (Auto) 0 % (0-3) Neutrophils # (Auto) 9.4 x10^3/uL (1.8-7.7) Lymphocytes # (Auto) 0.6 x10^3/uL (1.0-4.8) Monocytes # (Auto) 0.8 x10^3/uL (0.0-1.1) Eosinophils # (Auto) 0.1 x10^3/uL (0.0-0.7) Basophils # (Auto) 0.0 x10^3/uL (0.0-0.2) Sodium Level 144 mmol/L (136-145) Potassium Level 4.4 mmol/L (3.5-5.1) Chloride Level 107 mmol/L (98-107) Carbon Dioxide Level 27 mmol/L (21-32) Anion Gap 10 (6-14) Blood Urea Nitrogen 47 mg/dL (8-26) Creatinine 2.4 mg/dL (0.7-1.3) Estimated GFR (Cockcroft-Gault) 25.7 Glucose Level 47 mg/dL (70-99) Calcium Level 8.8 mg/dL (8.5-10.1) Glucose (Fingerstick) 49 mg/dL (70-99) 145 mg/dL (70-99) Medications Active Scripts Medications Dose Route/Sig Max Daily Dose Days Date Category Dose Instructions Vitamin C (Ascorbic Acid) 1,000 Mg Tablet 3,000 Mg PO TID 14 12/26/20 Rx Hydrochlorothiazide Capsule (Hydrochlorothiazide) 12.5 Mg Capsule 12.5 Mg PO DAILY 12/25/20 Reported Multi Vitamin Daily (Multivitamin) 1 Each Tablet 1 Tab PO DAILY 30 12/25/20 Reported Proair Hfa Inhaler (Albuterol Sulfate) 8.5 Gm Hfa.aer.ad 2 Puff IH PRN Q4-6HRS PRN 21 12/24/20 Rx Inhale 2 puffs every 4-6 hours as needed for shortness of breath. Aspir-Low (Aspirin) 81 Mg Tablet.dr 81 Mg PO DAILY 01/07/19 Reported Vitamin D3 (Cholecalciferol (Vitamin D3)) 1,000 Unit Tablet 1 Tab PO DAILY 06/04/18 Reported Fenofibrate (Fenofibrate Nanocrystallized) 145 Mg Tablet 1 Tab PO DAILY 06/04/18 Reported Allopurinol 100 Mg Tablet 1 Tab PO DAILY 06/04/18 Reported Impression . 1. Acute on chronic hypoxemic respiratory failure, multifactorial. 2. Abnormal CT revealing a new consolidation in right lower lobe with a small effusion, compatible with healthcare-acquired pneumonia, suspect gram-negative, possibly gram-positive. 3. History of lung cancer. 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 4. New left upper lobe enlarging mass, treated with SBRT. Last PET scan revealed disease being under control. 5. Status post left nephrostomy tube, recently hospitalized at [facility] for bladder cancer, had removal of the bladder tumor. 6. Acute on chronic renal failure. 7. Leukocytosis. 8. Severe protein malnutrition, present upon admission. 9. Fever, rule out sepsis. 10. Type 2 diabetes. 11. Coronary artery disease. 12. Hypertension. 13. Hypoglycemia, improved Plan . PLAN: 1. Chest x-ray reviewed. There appears to be improving infiltrates in the right lung. Currently on antibiotics with cefepime.. Will start to de-escalate soon. 2. Mucinex.. 3. Monitor blood sugar closely. 4. Follow blood cultures. 5. Follow clinical course and make further recommendations. Once the patient is discharged, follow-up in followup in the office in 2-4 weeks post-discharge with NIRMAL Isaacs MD August 26, 2021 10:43
[2021-08-26 11:00] VITALS: BP 154/66
[2021-08-26] MEDS: CEFEPIME HCL IV Push 2 GM VIAL. IVP SCH (11:19)
[2021-08-26 15:00] VITALS: BP 166/75
[2021-08-26 19:00] VITALS: BP 151/66
[2021-08-26] MEDS: ZOLPIDEM 5 MG TABLET. PO PRN (21:12)
[2021-08-26 22:40] VITALS: BP 141/70
[2021-08-26] MEDS ORDERED: ZIPRASIDONE IM 20 MG VIAL. IM ONE (23:30)
[2021-08-26] MEDS ORDERED: ZIPRASIDONE IM 20 MG VIAL. IM PRN (23:45)
[2021-08-27 07:00] VITALS: BP 168/74
[2021-08-27] MEDS: IPRATRPIUM/ALBUTEROL 0.5/2.5MG 3 ML NEBU. NEB SCH ×4 (07:33→20:47)
[2021-08-27] MEDS: INSULIN LISPRO 300 UNITS/3 ML VIAL. SQ SCH ×3 (08:00→17:00)
--- NOTE | 2021-08-27 08:05 | PDOC ---
[employer] PROGRESS NOTE Date of Service DOS: DATE: 08/27/21 TIME: 08:02 Chief Complaint Chief Complaint Acute respiratory failure with hypoxia Sepsis Hospital-acquired pneumonia Acute COPD Acute on chronic renal insufficiency possibly due to vasomotor nephropathy History lung cancer History of bladder cancer with recent placement of left nephrostomy tube Mild malnutrition History of Present Illness History of Present Illness 08/27: Patient evaluated. He is minimally responsive with some agonal breathing. Discussed with RN, he reportedly refused BiPAP yesterday. ABG pending. Will discuss with family when they return today. Very poor prognosis. 08/26: Patient seen and evaluated with son-in-law at bedside. States he feels "jittery" this morning. Did just have breathing treatment. Morning labs still pending. Chest x-ray yesterday showed. Ill-defined patchy mid lung base and right basilar opacities, possibly decreased compared to prior exam. We will recheck chest x-ray tomorrow. Continue with IV antibiotics. 08/25: Patient seen and evaluated. He reports some chest congestion, but no worsening shortness of breath. His MRSA swab was negative, and will discontinue Zyvox. WBC 11.4. Continue IV cefepime. 08/24: Patient seen and evaluated bedside. Afebrile, he denies a sensation of shortness of breath. Receiving breathing treatment this morning. Discussed with Dr. Kyle will continue IV antibiotics for the next few days. Vitals/I&O Vitals/I&O: Vital Signs Date Time Temp Pulse Resp B/P (MAP) Pulse Ox O2 Delivery O2 Flow Rate FiO2 08/27/21 07:34 99 Nasal Cannula 3.0 08/26/21 22:40 97.8 110 18 141/70 (93) 97.8 I & O 08/26/21 08/26/21 08/27/21 15:00 23:00 07:00 Output Total 250 ml 400 ml Balance -250 ml -400 ml Physical Exam General: Alert, Oriented X3, Cooperative Heart: Regular rate Lungs: Other (Decreased breath sounds.) Abdomen: Soft, No tenderness Extremities: No clubbing, No cyanosis Skin: No rashes, No breakdown Labs Labs: Laboratory Tests Test 08/26/21 11:05 08/26/21 14:45 08/26/21 18:57 08/26/21 23:03 Glucose (Fingerstick) 125 mg/dL (70-99) 188 mg/dL (70-99) 145 mg/dL (70-99) 160 mg/dL (70-99) Test 08/27/21 07:13 Glucose (Fingerstick) 217 mg/dL (70-99) Comment Review of Relevant I have reviewed the following items earlene (where applicable) has been applied. Medications: Current Medications Medications (Trade) Dose Ordered Sig/Dominga Route PRN Reason Start Time Stop Time Status Last Admin Dose Admin Olanzapine (ZyPREXA ZYDIS) 5 mg PRN BID PRN PO ANXIETY / AGITATION 08/26/21 15:00 08/26/21 21:12 Ziprasidone (Geodon Im) 10 mg PRN Q2HR ONCE IM 08/26/21 23:30 08/26/21 23:31 DC 08/26/21 23:22 Justifications for Admission Other Justification VERNON PRITCHARD MD August 27, 2021 08:05
[2021-08-27 08:15] LABS: BASO % 0 % (0-3); EOS % 0 % (0-3); HEMATOCRIT 29.8 % (39.0-53.0); HEMOGLOBIN 9.4 g/dL (13.0-17.5); LYMPH # 0.4 x10^3/uL (1.0-4.8); LYMPH % 3 % (24-48); MEAN CORPUSCULAR HEMOGLOBIN 31 pg (25-35); MEAN CORPUSCULAR HGB CONC 32 g/dL (31-37); MEAN CORPUSCULAR VOLUME 98 fL (79-100); MONO # 0.6 x10^3/uL (0.0-1.1); MONO % 4 % (0-9); NEUT # 13.3 x10^3/uL (1.8-7.7); NEUT % 93 % (31-73); PLATELET COUNT 443 x10^3/uL (140-400); RED BLOOD COUNT 3.04 x10^6/uL (4.30-5.70); RED CELL DISTRIBUTION WIDTH 14.6 % (11.5-14.5); WHITE BLOOD COUNT 14.3 x10^3/uL (4.0-11.0)
[2021-08-27] MEDS ORDERED: MORPHINE SULFATE 2 MG/ML INJ. IVP PRN (08:15)
[2021-08-27 08:21] LABS: CALCIUM 9.5 mg/dL (8.5-10.1); CREATININE 2.4 mg/dL (0.7-1.3); GFR 25.7
[2021-08-27 08:32] LABS: POTASSIUM 5.9 mmol/L (3.5-5.1)
[2021-08-27] MEDS: LACTOBACILLUS RHAMNOSUS GG 1 CAPSULE. PO SCH ×2 (09:00→20:48)
[2021-08-27] MEDS: ASCORBIC ACID 1,000 MG TABLET PO SCH ×3 (09:00→20:49)
[2021-08-27] MEDS: ASPIRIN ENTERIC COATED 81 MG TABLET.DR. PO SCH (09:00)
[2021-08-27] MEDS: LOSARTAN POTASSIUM 50 MG TABLET. PO SCH (09:00)
[2021-08-27] MEDS: hydroCHLOROthiazide 12.5 MG TABLET PO SCH (09:00)
[2021-08-27] MEDS: ALLOPURINOL 100 MG TABLET. PO SCH (09:00)
[2021-08-27] MEDS: HEPARIN for SUB-Q USE 5,000 UNIT/ML VIAL. SQ SCH ×2 (09:00→20:48)
[2021-08-27] MEDS: FENOFIBRATE,MICRONIZED 134 MG CAPSULE PO SCH (09:00)
[2021-08-27] MEDS: CHOLECALCIFEROL (VITAMIN D3) 1,000 UNIT TABLET PO SCH (09:00)
[2021-08-27] MEDS: METOPROLOL SUCC 24HR ER 50 MG TAB.ER.24H. PO SCH (09:00)
--- NOTE | 2021-08-27 10:22 | PDOC ---
PULMONARY PROGRESS NOTES DATE: 08/27/21 TIME: 10:20 Subjective Patient had acute hypercapnic respiratory failure from arterial blood gases drawn yesterday. I had ordered BiPAP. I been told that patient did not wear BiPAP. He is not responsive. Repeat arterial blood gases are being drawn. Vitals Vital Signs Date Time Temp Pulse Resp B/P (MAP) Pulse Ox O2 Delivery O2 Flow Rate FiO2 08/27/21 07:34 99 Nasal Cannula 3.0 08/27/21 07:00 97.5 104 18 168/74 (105) 97.5 General: Lethargic Lungs: Other (Decreased breath sounds.) Cardiovascular: S1, S2 Abdomen: Soft, Non-tender Extremities: No Edema Skin: Warm Labs Laboratory Tests Test 08/25/21 16:48 08/25/21 20:15 08/26/21 03:14 08/26/21 03:55 Glucose (Fingerstick) 66 mg/dL (70-99) 72 mg/dL (70-99) 55 mg/dL (70-99) 112 mg/dL (70-99) Test 08/26/21 06:20 08/26/21 07:03 08/26/21 07:36 08/26/21 11:05 White Blood Count 10.9 x10^3/uL (4.0-11.0) Red Blood Count 2.88 x10^6/uL (4.30-5.70) Hemoglobin 9.0 g/dL (13.0-17.5) Hematocrit 27.7 % (39.0-53.0) Mean Corpuscular Volume 96 fL (79-100) Mean Corpuscular Hemoglobin 31 pg (25-35) Mean Corpuscular Hemoglobin Concent 33 g/dL (31-37) Red Cell Distribution Width 14.2 % (11.5-14.5) Platelet Count 376 x10^3/uL (140-400) Neutrophils (%) (Auto) 87 % (31-73) Lymphocytes (%) (Auto) 6 % (24-48) Monocytes (%) (Auto) 7 % (0-9) Eosinophils (%) (Auto) 1 % (0-3) Basophils (%) (Auto) 0 % (0-3) Neutrophils # (Auto) 9.4 x10^3/uL (1.8-7.7) Lymphocytes # (Auto) 0.6 x10^3/uL (1.0-4.8) Monocytes # (Auto) 0.8 x10^3/uL (0.0-1.1) Eosinophils # (Auto) 0.1 x10^3/uL (0.0-0.7) Basophils # (Auto) 0.0 x10^3/uL (0.0-0.2) Sodium Level 144 mmol/L (136-145) Potassium Level 4.4 mmol/L (3.5-5.1) Chloride Level 107 mmol/L (98-107) Carbon Dioxide Level 27 mmol/L (21-32) Anion Gap 10 (6-14) Blood Urea Nitrogen 47 mg/dL (8-26) Creatinine 2.4 mg/dL (0.7-1.3) Estimated GFR (Cockcroft-Gault) 25.7 Glucose Level 47 mg/dL (70-99) Calcium Level 8.8 mg/dL (8.5-10.1) Glucose (Fingerstick) 49 mg/dL (70-99) 145 mg/dL (70-99) 125 mg/dL (70-99) Test 08/26/21 14:45 08/26/21 18:57 08/26/21 23:03 08/27/21 06:40 Glucose (Fingerstick) 188 mg/dL (70-99) 145 mg/dL (70-99) 160 mg/dL (70-99) White Blood Count 14.3 x10^3/uL (4.0-11.0) Red Blood Count 3.04 x10^6/uL (4.30-5.70) Hemoglobin 9.4 g/dL (13.0-17.5) Hematocrit 29.8 % (39.0-53.0) Mean Corpuscular Volume 98 fL (79-100) Mean Corpuscular Hemoglobin 31 pg (25-35) Mean Corpuscular Hemoglobin Concent 32 g/dL (31-37) Red Cell Distribution Width 14.6 % (11.5-14.5) Platelet Count 443 x10^3/uL (140-400) Neutrophils (%) (Auto) 93 % (31-73) Lymphocytes (%) (Auto) 3 % (24-48) Monocytes (%) (Auto) 4 % (0-9) Eosinophils (%) (Auto) 0 % (0-3) Basophils (%) (Auto) 0 % (0-3) Neutrophils # (Auto) 13.3 x10^3/uL (1.8-7.7) Lymphocytes # (Auto) 0.4 x10^3/uL (1.0-4.8) Monocytes # (Auto) 0.6 x10^3/uL (0.0-1.1) Eosinophils # (Auto) 0.0 x10^3/uL (0.0-0.7) Basophils # (Auto) 0.0 x10^3/uL (0.0-0.2) Sodium Level 143 mmol/L (136-145) Potassium Level 5.9 mmol/L (3.5-5.1) Chloride Level 106 mmol/L (98-107) Carbon Dioxide Level 28 mmol/L (21-32) Anion Gap 9 (6-14) Blood Urea Nitrogen 47 mg/dL (8-26) Creatinine 2.4 mg/dL (0.7-1.3) Estimated GFR (Cockcroft-Gault) 25.7 Glucose Level 219 mg/dL (70-99) Calcium Level 9.5 mg/dL (8.5-10.1) Magnesium Level 2.5 mg/dL (1.8-2.4) Test 08/27/21 07:13 Glucose (Fingerstick) 217 mg/dL (70-99) Laboratory Tests Test 08/26/21 11:05 08/26/21 14:45 08/26/21 18:57 08/26/21 23:03 Glucose (Fingerstick) 125 mg/dL (70-99) 188 mg/dL (70-99) 145 mg/dL (70-99) 160 mg/dL (70-99) Test 08/27/21 06:40 08/27/21 07:13 White Blood Count 14.3 x10^3/uL (4.0-11.0) Red Blood Count 3.04 x10^6/uL (4.30-5.70) Hemoglobin 9.4 g/dL (13.0-17.5) Hematocrit 29.8 % (39.0-53.0) Mean Corpuscular Volume 98 fL (79-100) Mean Corpuscular Hemoglobin 31 pg (25-35) Mean Corpuscular Hemoglobin Concent 32 g/dL (31-37) Red Cell Distribution Width 14.6 % (11.5-14.5) Platelet Count 443 x10^3/uL (140-400) Neutrophils (%) (Auto) 93 % (31-73) Lymphocytes (%) (Auto) 3 % (24-48) Monocytes (%) (Auto) 4 % (0-9) Eosinophils (%) (Auto) 0 % (0-3) Basophils (%) (Auto) 0 % (0-3) Neutrophils # (Auto) 13.3 x10^3/uL (1.8-7.7) Lymphocytes # (Auto) 0.4 x10^3/uL (1.0-4.8) Monocytes # (Auto) 0.6 x10^3/uL (0.0-1.1) Eosinophils # (Auto) 0.0 x10^3/uL (0.0-0.7) Basophils # (Auto) 0.0 x10^3/uL (0.0-0.2) Sodium Level 143 mmol/L (136-145) Potassium Level 5.9 mmol/L (3.5-5.1) Chloride Level 106 mmol/L (98-107) Carbon Dioxide Level 28 mmol/L (21-32) Anion Gap 9 (6-14) Blood Urea Nitrogen 47 mg/dL (8-26) Creatinine 2.4 mg/dL (0.7-1.3) Estimated GFR (Cockcroft-Gault) 25.7 Glucose Level 219 mg/dL (70-99) Calcium Level 9.5 mg/dL (8.5-10.1) Magnesium Level 2.5 mg/dL (1.8-2.4) Glucose (Fingerstick) 217 mg/dL (70-99) Medications Active Scripts Medications Dose Route/Sig Max Daily Dose Days Date Category Dose Instructions Vitamin C (Ascorbic Acid) 1,000 Mg Tablet 3,000 Mg PO TID 14 12/26/20 Rx Hydrochlorothiazide Capsule (Hydrochlorothiazide) 12.5 Mg Capsule 12.5 Mg PO DAILY 12/25/20 Reported Multi Vitamin Daily (Multivitamin) 1 Each Tablet 1 Tab PO DAILY 30 12/25/20 Reported Proair Hfa Inhaler (Albuterol Sulfate) 8.5 Gm Hfa.aer.ad 2 Puff IH PRN Q4-6HRS PRN 21 12/24/20 Rx Inhale 2 puffs every 4-6 hours as needed for shortness of breath. Aspir-Low (Aspirin) 81 Mg Tablet. 81 Mg PO DAILY 01/07/19 Reported Vitamin D3 (Cholecalciferol (Vitamin D3)) 1,000 Unit Tablet 1 Tab PO DAILY 06/04/18 Reported Fenofibrate (Fenofibrate Nanocrystallized) 145 Mg Tablet 1 Tab PO DAILY 06/04/18 Reported Allopurinol 100 Mg Tablet 1 Tab PO DAILY 06/04/18 Reported Impression . 1. Acute on chronic hypoxemic respiratory failure, multifactorial. Now has developed acute hypercapnia. Patient is nonresponsive. Currently also receiving as needed morphine. We will place him back on the BiPAP. Follow-up ABGs have been ordered. 2. Abnormal CT revealing a new consolidation in right lower lobe with a small effusion, compatible with healthcare-acquired pneumonia, suspect gram-negative, possibly gram-positive. 3. History of lung cancer. 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 4. New left upper lobe enlarging mass, treated with SBRT. Last PET scan revealed disease being under control. 5. Status post left nephrostomy tube, recently hospitalized at [facility] for bladder cancer, had removal of the bladder tumor. 6. Acute on chronic renal failure. 7. Leukocytosis. 8. Severe protein malnutrition, present upon admission. 9. Fever, rule out sepsis. 10. Type 2 diabetes. 11. Coronary artery disease. 12. Hypertension. 13. Hypoglycemia, improved 14. Discussed with Dr. Reece. Will need to reach out to the family and discussed the goals of care. Patient was very depressed yesterday. He had indicated not to continue aggressive care. I would recommend comfort care. Plan . PLAN: 1. We will place the patient on BiPAP since he is not responsive. Arterial blood gases have been ordered and will follow. 2. Will need to discuss with the family regarding goals of care. If they want still aggressive care then I will discontinue as needed morphine as ordered by PCP. I would recommend comfort care. 3. Monitor blood sugar closely. 4. Follow blood cultures. 5. Follow clinical course and make further recommendations. NIRMAL GREEN MD August 27, 2021 10:22
[2021-08-27 11:00] VITALS: BP 101/54
--- NOTE | 2021-08-27 11:59 | RAD ---
XR CHEST 1V History: Reason: Pneumonia / Spl. Instructions: / History: Comparison: August 25, 2021 Findings: Increased patchy mid and bibasilar opacities most prominent within the right lung base. Small right p leural effusion, unchanged. No pneumothorax. Hyperinflation. Unchanged heart size. Impression: 1. Increased multifocal opacities most prominent within the right lung base, concerning for pneumoni a. Recommend follow-up after treatment to ensure resolution. Electronically signed by: Matthew Varma DO (08/27/2021 11:57 AM) [id number]
[2021-08-27] MEDS ORDERED: FUROSEMIDE 20 MG/2 ML VIAL. IVP ONE (12:30)
[2021-08-27] MEDS: CEFEPIME HCL IV Push 2 GM VIAL. IVP SCH (13:05)
[2021-08-27 14:32] LABS: BASE EXCESS ABG -2 mmol/L (-3-3); HCO3 ABG 26 mmol/L (21-28); PO2 ABG 99 mmHg (65-108); SAT O2 ABG 97 % (92-99)
[2021-08-27 14:44] VITALS: BP 123/66
[2021-08-27 15:33] LABS: PCO2 ABG 65 mmHg (35-46)
[2021-08-27 15:34] LABS: FIO2 ABG 35%
[2021-08-27] MEDS: IV NORMAL SALINE 1000ML BAG 1,000 ML IV SCH ×2 (15:56→20:50)
[2021-08-27 19:00] VITALS: BP 124/63
[2021-08-27 23:00] VITALS: BP 111/60
[2021-08-28 03:00] VITALS: BP 146/60
[2021-08-28 07:00] VITALS: BP 92/53
[2021-08-28] MEDS: IPRATRPIUM/ALBUTEROL 0.5/2.5MG 3 ML NEBU. NEB SCH ×4 (07:26→20:28)
[2021-08-28 07:33] LABS: BASO % 0 % (0-3); EOS % 0 % (0-3); HEMATOCRIT 26.8 % (39.0-53.0); HEMOGLOBIN 8.3 g/dL (13.0-17.5); LYMPH # 0.3 x10^3/uL (1.0-4.8); LYMPH % 2 % (24-48); MEAN CORPUSCULAR HEMOGLOBIN 30 pg (25-35); MEAN CORPUSCULAR HGB CONC 31 g/dL (31-37); MEAN CORPUSCULAR VOLUME 98 fL (79-100); MONO # 0.8 x10^3/uL (0.0-1.1); MONO % 5 % (0-9); NEUT # 14.4 x10^3/uL (1.8-7.7); NEUT % 93 % (31-73); PLATELET COUNT 381 x10^3/uL (140-400); RED BLOOD COUNT 2.74 x10^6/uL (4.30-5.70); RED CELL DISTRIBUTION WIDTH 14.5 % (11.5-14.5); WHITE BLOOD COUNT 15.5 x10^3/uL (4.0-11.0)
[2021-08-28 07:41] LABS: BASE EXCESS COOX -3 mmol/L (-3-3); HCO3 COOX 23 mmol/L (21-28); METHEMOGLOBIN 0.4 % (0.0-1.9); OXYHEMOGLOBIN 97.1 %; PCO2 COOX 45 mmHg (35-46); PO2 COOX 127 mmHg (65-108); SAT O2 COOX 98 % (92-99)
[2021-08-28 07:44] LABS: CALCIUM 8.8 mg/dL (8.5-10.1); CREATININE 2.6 mg/dL (0.7-1.3); GFR 23.4; POTASSIUM 5.3 mmol/L (3.5-5.1)
[2021-08-28] MEDS: INSULIN LISPRO 300 UNITS/3 ML VIAL. SQ SCH ×3 (08:00→17:00)
[2021-08-28] MEDS: CHOLECALCIFEROL (VITAMIN D3) 1,000 UNIT TABLET PO SCH (09:00)
[2021-08-28] MEDS: LACTOBACILLUS RHAMNOSUS GG 1 CAPSULE. PO SCH ×2 (09:00→20:41)
[2021-08-28] MEDS: METOPROLOL SUCC 24HR ER 50 MG TAB.ER.24H. PO SCH (09:00)
[2021-08-28] MEDS: ASCORBIC ACID 1,000 MG TABLET PO SCH ×3 (09:00→20:42)
[2021-08-28] MEDS: FENOFIBRATE,MICRONIZED 134 MG CAPSULE PO SCH (09:00)
[2021-08-28] MEDS: hydroCHLOROthiazide 12.5 MG TABLET PO SCH (09:00)
[2021-08-28] MEDS: ALLOPURINOL 100 MG TABLET. PO SCH (09:00)
[2021-08-28] MEDS: ASPIRIN ENTERIC COATED 81 MG TABLET.DR. PO SCH (09:00)
[2021-08-28] MEDS: LOSARTAN POTASSIUM 50 MG TABLET. PO SCH (09:00)
--- NOTE | 2021-08-28 09:50 | PDOC ---
PULMONARY PROGRESS NOTES DATE: 08/28/21 TIME: 09:48 Subjective Patient had acute hypercapnic respiratory failure 08/26/2021. Patient has been on BiPAP. Still not responsive. Vitals Vital Signs Date Time Temp Pulse Resp B/P (MAP) Pulse Ox O2 Delivery O2 Flow Rate FiO2 08/28/21 07:27 93 BiPAP/CPAP 08/28/21 07:00 97.8 89 18 92/53 (66) 97.8 08/27/21 11:00 4.0 General: Lethargic Lungs: Other (Decreased breath sounds.) Cardiovascular: S1, S2 Abdomen: Soft, Non-tender Extremities: No Edema Skin: Warm Labs Laboratory Tests Test 08/26/21 11:05 08/26/21 14:45 08/26/21 18:57 08/26/21 23:03 Glucose (Fingerstick) 125 mg/dL (70-99) 188 mg/dL (70-99) 145 mg/dL (70-99) 160 mg/dL (70-99) Test 08/27/21 06:40 08/27/21 07:13 08/27/21 11:32 08/27/21 14:08 White Blood Count 14.3 x10^3/uL (4.0-11.0) Red Blood Count 3.04 x10^6/uL (4.30-5.70) Hemoglobin 9.4 g/dL (13.0-17.5) Hematocrit 29.8 % (39.0-53.0) Mean Corpuscular Volume 98 fL (79-100) Mean Corpuscular Hemoglobin 31 pg (25-35) Mean Corpuscular Hemoglobin Concent 32 g/dL (31-37) Red Cell Distribution Width 14.6 % (11.5-14.5) Platelet Count 443 x10^3/uL (140-400) Neutrophils (%) (Auto) 93 % (31-73) Lymphocytes (%) (Auto) 3 % (24-48) Monocytes (%) (Auto) 4 % (0-9) Eosinophils (%) (Auto) 0 % (0-3) Basophils (%) (Auto) 0 % (0-3) Neutrophils # (Auto) 13.3 x10^3/uL (1.8-7.7) Lymphocytes # (Auto) 0.4 x10^3/uL (1.0-4.8) Monocytes # (Auto) 0.6 x10^3/uL (0.0-1.1) Eosinophils # (Auto) 0.0 x10^3/uL (0.0-0.7) Basophils # (Auto) 0.0 x10^3/uL (0.0-0.2) Sodium Level 143 mmol/L (136-145) Potassium Level 5.9 mmol/L (3.5-5.1) Chloride Level 106 mmol/L (98-107) Carbon Dioxide Level 28 mmol/L (21-32) Anion Gap 9 (6-14) Blood Urea Nitrogen 47 mg/dL (8-26) Creatinine 2.4 mg/dL (0.7-1.3) Estimated GFR (Cockcroft-Gault) 25.7 Glucose Level 219 mg/dL (70-99) Calcium Level 9.5 mg/dL (8.5-10.1) Magnesium Level 2.5 mg/dL (1.8-2.4) Glucose (Fingerstick) 217 mg/dL (70-99) 170 mg/dL (70-99) O2 Saturation 97 % (92-99) Arterial Blood pH 7.22 (7.35-7.45) Arterial Blood pCO2 at Patient Temp 65 mmHg (35-46) Arterial Blood pO2 at Patient Temp 99 mmHg (65-108) Arterial Blood HCO3 26 mmol/L (21-28) Arterial Blood Base Excess -2 mmol/L (-3-3) FiO2 35% Test 08/27/21 16:47 08/27/21 20:56 08/28/21 05:40 08/28/21 07:45 Glucose (Fingerstick) 116 mg/dL (70-99) 78 mg/dL (70-99) White Blood Count 15.5 x10^3/uL (4.0-11.0) Red Blood Count 2.74 x10^6/uL (4.30-5.70) Hemoglobin 8.3 g/dL (13.0-17.5) Hematocrit 26.8 % (39.0-53.0) Mean Corpuscular Volume 98 fL (79-100) Mean Corpuscular Hemoglobin 30 pg (25-35) Mean Corpuscular Hemoglobin Concent 31 g/dL (31-37) Red Cell Distribution Width 14.5 % (11.5-14.5) Platelet Count 381 x10^3/uL (140-400) Neutrophils (%) (Auto) 93 % (31-73) Lymphocytes (%) (Auto) 2 % (24-48) Monocytes (%) (Auto) 5 % (0-9) Eosinophils (%) (Auto) 0 % (0-3) Basophils (%) (Auto) 0 % (0-3) Neutrophils # (Auto) 14.4 x10^3/uL (1.8-7.7) Lymphocytes # (Auto) 0.3 x10^3/uL (1.0-4.8) Monocytes # (Auto) 0.8 x10^3/uL (0.0-1.1) Eosinophils # (Auto) 0.0 x10^3/uL (0.0-0.7) Basophils # (Auto) 0.0 x10^3/uL (0.0-0.2) Sodium Level 147 mmol/L (136-145) Potassium Level 5.3 mmol/L (3.5-5.1) Chloride Level 109 mmol/L (98-107) Carbon Dioxide Level 24 mmol/L (21-32) Anion Gap 14 (6-14) Blood Urea Nitrogen 60 mg/dL (8-26) Creatinine 2.6 mg/dL (0.7-1.3) Estimated GFR (Cockcroft-Gault) 23.4 Glucose Level 115 mg/dL (70-99) Calcium Level 8.8 mg/dL (8.5-10.1) O2 Saturation 98 % (92-99) Arterial Blood pH 7.32 (7.35-7.45) Arterial Blood pCO2 at Patient Temp 45 mmHg (35-46) Arterial Blood pO2 at Patient Temp 127 mmHg (65-108) Arterial Blood HCO3 23 mmol/L (21-28) Arterial Blood Base Excess -3 mmol/L (-3-3) Oxyhemoglobin 97.1 % Methemoglobin 0.4 % (0.0-1.9) Carbon Monoxide, Quantitative 0.3 % (0.0-1.9) FiO2 28% bipap24/6,rate24 Test 08/28/21 07:47 Glucose (Fingerstick) 108 mg/dL (70-99) Laboratory Tests Test 08/27/21 11:32 08/27/21 14:08 08/27/21 16:47 08/27/21 20:56 Glucose (Fingerstick) 170 mg/dL (70-99) 116 mg/dL (70-99) 78 mg/dL (70-99) O2 Saturation 97 % (92-99) Arterial Blood pH 7.22 (7.35-7.45) Arterial Blood pCO2 at Patient Temp 65 mmHg (35-46) Arterial Blood pO2 at Patient Temp 99 mmHg (65-108) Arterial Blood HCO3 26 mmol/L (21-28) Arterial Blood Base Excess -2 mmol/L (-3-3) FiO2 35% Test 08/28/21 05:40 08/28/21 07:45 08/28/21 07:47 White Blood Count 15.5 x10^3/uL (4.0-11.0) Red Blood Count 2.74 x10^6/uL (4.30-5.70) Hemoglobin 8.3 g/dL (13.0-17.5) Hematocrit 26.8 % (39.0-53.0) Mean Corpuscular Volume 98 fL (79-100) Mean Corpuscular Hemoglobin 30 pg (25-35) Mean Corpuscular Hemoglobin Concent 31 g/dL (31-37) Red Cell Distribution Width 14.5 % (11.5-14.5) Platelet Count 381 x10^3/uL (140-400) Neutrophils (%) (Auto) 93 % (31-73) Lymphocytes (%) (Auto) 2 % (24-48) Monocytes (%) (Auto) 5 % (0-9) Eosinophils (%) (Auto) 0 % (0-3) Basophils (%) (Auto) 0 % (0-3) Neutrophils # (Auto) 14.4 x10^3/uL (1.8-7.7) Lymphocytes # (Auto) 0.3 x10^3/uL (1.0-4.8) Monocytes # (Auto) 0.8 x10^3/uL (0.0-1.1) Eosinophils # (Auto) 0.0 x10^3/uL (0.0-0.7) Basophils # (Auto) 0.0 x10^3/uL (0.0-0.2) Sodium Level 147 mmol/L (136-145) Potassium Level 5.3 mmol/L (3.5-5.1) Chloride Level 109 mmol/L (98-107) Carbon Dioxide Level 24 mmol/L (21-32) Anion Gap 14 (6-14) Blood Urea Nitrogen 60 mg/dL (8-26) Creatinine 2.6 mg/dL (0.7-1.3) Estimated GFR (Cockcroft-Gault) 23.4 Glucose Level 115 mg/dL (70-99) Calcium Level 8.8 mg/dL (8.5-10.1) O2 Saturation 98 % (92-99) Arterial Blood pH 7.32 (7.35-7.45) Arterial Blood pCO2 at Patient Temp 45 mmHg (35-46) Arterial Blood pO2 at Patient Temp 127 mmHg (65-108) Arterial Blood HCO3 23 mmol/L (21-28) Arterial Blood Base Excess -3 mmol/L (-3-3) Oxyhemoglobin 97.1 % Methemoglobin 0.4 % (0.0-1.9) Carbon Monoxide, Quantitative 0.3 % (0.0-1.9) FiO2 28% bipap24/6,rate24 Glucose (Fingerstick) 108 mg/dL (70-99) Medications Active Scripts Medications Dose Route/Sig Max Daily Dose Days Date Category Dose Instructions Vitamin C (Ascorbic Acid) 1,000 Mg Tablet 3,000 Mg PO TID 14 12/26/20 Rx Hydrochlorothiazide Capsule (Hydrochlorothiazide) 12.5 Mg Capsule 12.5 Mg PO DAILY 12/25/20 Reported Multi Vitamin Daily (Multivitamin) 1 Each Tablet 1 Tab PO DAILY 30 12/25/20 Reported Proair Hfa Inhaler (Albuterol Sulfate) 8.5 Gm Hfa.aer.ad 2 Puff IH PRN Q4-6HRS PRN 12/24/20 Rx Inhale 2 puffs every 4-6 hours as needed for shortness of breath. Aspir-Low (Aspirin) 81 Mg Tablet.dr 81 Mg PO DAILY 01/07/19 Reported Vitamin D3 (Cholecalciferol (Vitamin D3)) 1,000 Unit Tablet 1 Tab PO DAILY 06/04/18 Reported Fenofibrate (Fenofibrate Nanocrystallized) 145 Mg Tablet 1 Tab PO DAILY 06/04/18 Reported Allopurinol 100 Mg Tablet 1 Tab PO DAILY 06/04/18 Reported Impression . 1. Acute on chronic hypoxemic respiratory failure, multifactorial. Now has developed acute hypercapnia. Patient is nonresponsive. Likely medication induced. He is on BiPAP. RT blood gases have shown compensated hypercapnia. Will significantly reduce as needed Ativan dose. 2. Abnormal CT revealing a new consolidation in right lower lobe with a small effusion, compatible with healthcare-acquired pneumonia, suspect gram-negative, possibly gram-positive. 3. History of lung cancer. 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 4. New left upper lobe enlarging mass, treated with SBRT. Last PET scan revealed disease being under control. 5. Status post left nephrostomy tube, recently hospitalized at [facility] for bladder cancer, had removal of the bladder tumor. 6. Acute on chronic renal failure. 7. Leukocytosis. 8. Severe protein malnutrition, present upon admission. 9. Fever, rule out sepsis. 10. Type 2 diabetes. 11. Coronary artery disease. 12. Hypertension. 13. Hypoglycemia, improved Plan . PLAN: 1. Continue BiPAP. RT blood gases have improved. However neurologically has not woken up. Could be related to medications. We will significantly reduce with as needed dose of Ativan. Patient not receive narcotics. Discussed with RN. 2. Will need to discuss with the family regarding goals of care. Continue present BiPAP for now. 3. Monitor blood sugar closely. 4. Follow blood cultures. 5. Follow clinical course and make further recommendations. NIRMAL GREEN MD August 28, 2021 09:50
--- NOTE | 2021-08-28 10:49 | PDOC ---
[employer] PROGRESS NOTE Date of Service DOS: DATE: 08/28/21 TIME: 10:48 Chief Complaint Chief Complaint Acute respiratory failure with hypoxia Sepsis Hospital-acquired pneumonia Acute COPD Acute on chronic renal insufficiency possibly due to vasomotor nephropathy History lung cancer History of bladder cancer with recent placement of left nephrostomy tube Mild malnutrition History of Present Illness History of Present Illness 08/28 Patient evaluated examined at bedside. Remains on BiPAP. No apparent distress resting. ABG looks little bit better than yesterday. Continue BiPAP. Switch fluids to D5 half-normal today as not tolerating p.o. intake. Discussed with family members at bedside at great length. Pulmonary recommendations reviewed. Discussed with bedside RN. 08/27: Patient evaluated. He is minimally responsive with some agonal breathing. Discussed with RN, he reportedly refused BiPAP yesterday. ABG pending. Will discuss with family when they return today. Very poor prognosis. 08/26: Patient seen and evaluated with son-in-law at bedside. States he feels "jittery" this morning. Did just have breathing treatment. Morning labs still pending. Chest x-ray yesterday showed. Ill-defined patchy mid lung base and right basilar opacities, possibly decreased compared to prior exam. We will recheck chest x-ray tomorrow. Continue with IV antibiotics. 08/25: Patient seen and evaluated. He reports some chest congestion, but no worsening shortness of breath. His MRSA swab was negative, and will discontinue Zyvox. WBC 11.4. Continue IV cefepime. 08/24: Patient seen and evaluated bedside. Afebrile, he denies a sensation of shortness of breath. Receiving breathing treatment this morning. Discussed with Dr. Kyle will continue IV antibiotics for the next few days. Vitals/I&O Vitals/I&O: Vital Signs Date Time Temp Pulse Resp B/P (MAP) Pulse Ox O2 Delivery O2 Flow Rate FiO2 08/28/21 07:27 93 BiPAP/CPAP 08/28/21 07:00 97.8 89 18 92/53 (66) 97.8 08/27/21 11:00 4.0 I & O 08/27/21 08/27/21 08/28/21 15:00 23:00 07:00 Intake Total 340 ml 0 ml 0 ml Output Total 450 ml 400 ml Balance 340 ml -450 ml -400 ml Physical Exam General: Alert, Oriented X3, Cooperative Heart: Regular rate Lungs: Other (Decreased breath sounds.) Abdomen: Soft, No tenderness Extremities: No clubbing, No cyanosis Skin: No rashes, No breakdown Labs Labs: Laboratory Tests Test 08/27/21 11:32 08/27/21 14:08 08/27/21 16:47 08/27/21 20:56 Glucose (Fingerstick) 170 mg/dL (70-99) 116 mg/dL (70-99) 78 mg/dL (70-99) O2 Saturation 97 % (92-99) Arterial Blood pH 7.22 (7.35-7.45) Arterial Blood pCO2 at Patient Temp 65 mmHg (35-46) Arterial Blood pO2 at Patient Temp 99 mmHg (65-108) Arterial Blood HCO3 26 mmol/L (21-28) Arterial Blood Base Excess -2 mmol/L (-3-3) FiO2 35% Test 08/28/21 05:40 08/28/21 07:45 08/28/21 07:47 White Blood Count 15.5 x10^3/uL (4.0-11.0) Red Blood Count 2.74 x10^6/uL (4.30-5.70) Hemoglobin 8.3 g/dL (13.0-17.5) Hematocrit 26.8 % (39.0-53.0) Mean Corpuscular Volume 98 fL (79-100) Mean Corpuscular Hemoglobin 30 pg (25-35) Mean Corpuscular Hemoglobin Concent 31 g/dL (31-37) Red Cell Distribution Width 14.5 % (11.5-14.5) Platelet Count 381 x10^3/uL (140-400) Neutrophils (%) (Auto) 93 % (31-73) Lymphocytes (%) (Auto) 2 % (24-48) Monocytes (%) (Auto) 5 % (0-9) Eosinophils (%) (Auto) 0 % (0-3) Basophils (%) (Auto) 0 % (0-3) Neutrophils # (Auto) 14.4 x10^3/uL (1.8-7.7) Lymphocytes # (Auto) 0.3 x10^3/uL (1.0-4.8) Monocytes # (Auto) 0.8 x10^3/uL (0.0-1.1) Eosinophils # (Auto) 0.0 x10^3/uL (0.0-0.7) Basophils # (Auto) 0.0 x10^3/uL (0.0-0.2) Sodium Level 147 mmol/L (136-145) Potassium Level 5.3 mmol/L (3.5-5.1) Chloride Level 109 mmol/L (98-107) Carbon Dioxide Level 24 mmol/L (21-32) Anion Gap 14 (6-14) Blood Urea Nitrogen 60 mg/dL (8-26) Creatinine 2.6 mg/dL (0.7-1.3) Estimated GFR (Cockcroft-Gault) 23.4 Glucose Level 115 mg/dL (70-99) Calcium Level 8.8 mg/dL (8.5-10.1) O2 Saturation 98 % (92-99) Arterial Blood pH 7.32 (7.35-7.45) Arterial Blood pCO2 at Patient Temp 45 mmHg (35-46) Arterial Blood pO2 at Patient Temp 127 mmHg (65-108) Arterial Blood HCO3 23 mmol/L (21-28) Arterial Blood Base Excess -3 mmol/L (-3-3) Oxyhemoglobin 97.1 % Methemoglobin 0.4 % (0.0-1.9) Carbon Monoxide, Quantitative 0.3 % (0.0-1.9) FiO2 28% bipap24/6,rate24 Glucose (Fingerstick) 108 mg/dL (70-99) Comment Review of Relevant I have reviewed the following items earlene (where applicable) has been applied. Medications: Current Medications Medications (Trade) Dose Ordered Sig/Dominga Route PRN Reason Start Time Stop Time Status Last Admin Dose Admin Furosemide (Lasix) 20 mg 1X ONCE IVP 08/27/21 12:30 08/27/21 12:31 DC 08/27/21 15:44 Justifications for Admission Other Justification TATYANA PALOMINO MD August 28, 2021 10:49
[2021-08-28 11:00] VITALS: BP 173/74
[2021-08-28] MEDS ORDERED: IV DEXTROSE 5 %-0.45 % NACL 1,000 ML IV ONE (11:30)
[2021-08-28] MEDS: IV NORMAL SALINE 1000ML BAG 1,000 ML IV SCH ×2 (13:00→20:39)
[2021-08-28] MEDS: CEFEPIME HCL IV Push 2 GM VIAL. IVP SCH (14:01)
[2021-08-28] MEDS: HEPARIN for SUB-Q USE 5,000 UNIT/ML VIAL. SQ SCH ×2 (14:12→20:38)
[2021-08-28 15:00] VITALS: BP 128/67
[2021-08-28 19:44] VITALS: BP 151/68
[2021-08-28 23:18] VITALS: BP 116/50
[2021-08-29 03:42] VITALS: BP 159/76
[2021-08-29 07:00] VITALS: BP 159/81
[2021-08-29] MEDS: INSULIN LISPRO 300 UNITS/3 ML VIAL. SQ SCH ×3 (08:00→17:00)
[2021-08-29] MEDS: IPRATRPIUM/ALBUTEROL 0.5/2.5MG 3 ML NEBU. NEB SCH ×4 (08:00→19:24)
[2021-08-29] MEDS: FENOFIBRATE,MICRONIZED 134 MG CAPSULE PO SCH ×2 (09:00→15:17)
[2021-08-29] MEDS: LOSARTAN POTASSIUM 50 MG TABLET. PO SCH ×2 (09:00→15:16)
[2021-08-29] MEDS: METOPROLOL SUCC 24HR ER 50 MG TAB.ER.24H. PO SCH ×2 (09:00→15:16)
[2021-08-29] MEDS: CHOLECALCIFEROL (VITAMIN D3) 1,000 UNIT TABLET PO SCH ×2 (09:00→15:17)
[2021-08-29] MEDS: LACTOBACILLUS RHAMNOSUS GG 1 CAPSULE. PO SCH ×3 (09:00→21:21)
[2021-08-29] MEDS: ALLOPURINOL 100 MG TABLET. PO SCH ×2 (09:00→15:16)
[2021-08-29] MEDS: hydroCHLOROthiazide 12.5 MG TABLET PO SCH ×2 (09:00→15:17)
[2021-08-29] MEDS: ASPIRIN ENTERIC COATED 81 MG TABLET.DR. PO SCH ×2 (09:00→15:16)
[2021-08-29] MEDS: ASCORBIC ACID 1,000 MG TABLET PO SCH ×4 (09:00→21:21)
[2021-08-29 11:00] VITALS: BP 180/82
--- NOTE | 2021-08-29 11:12 | PDOC ---
PULMONARY PROGRESS NOTES DATE: 08/29/21 TIME: 11:08 Subjective Patient had acute hypercapnic respiratory failure 08/26/2021. Patient was treated with BiPAP. Per patient is of BiPAP. Narcotics and benzodiazepines were significantly minimized. Patient is now more awake. Vitals Vital Signs Date Time Temp Pulse Resp B/P (MAP) Pulse Ox O2 Delivery O2 Flow Rate FiO2 08/29/21 08:20 96 Nasal Cannula 3.0 08/29/21 07:00 98.3 110 22 159/81 (107) 98.3 General: Alert Lungs: Other (Decreased breath sounds.) Cardiovascular: S1, S2 Abdomen: Soft, Non-tender Extremities: No Edema Skin: Warm Labs Laboratory Tests Test 08/27/21 11:32 08/27/21 14:08 08/27/21 16:47 08/27/21 20:56 Glucose (Fingerstick) 170 mg/dL (70-99) 116 mg/dL (70-99) 78 mg/dL (70-99) O2 Saturation 97 % (92-99) Arterial Blood pH 7.22 (7.35-7.45) Arterial Blood pCO2 at Patient Temp 65 mmHg (35-46) Arterial Blood pO2 at Patient Temp 99 mmHg (65-108) Arterial Blood HCO3 26 mmol/L (21-28) Arterial Blood Base Excess -2 mmol/L (-3-3) FiO2 35% Test 08/28/21 05:40 08/28/21 07:45 08/28/21 07:47 08/28/21 11:08 White Blood Count 15.5 x10^3/uL (4.0-11.0) Red Blood Count 2.74 x10^6/uL (4.30-5.70) Hemoglobin 8.3 g/dL (13.0-17.5) Hematocrit 26.8 % (39.0-53.0) Mean Corpuscular Volume 98 fL (79-100) Mean Corpuscular Hemoglobin 30 pg (25-35) Mean Corpuscular Hemoglobin Concent 31 g/dL (31-37) Red Cell Distribution Width 14.5 % (11.5-14.5) Platelet Count 381 x10^3/uL (140-400) Neutrophils (%) (Auto) 93 % (31-73) Lymphocytes (%) (Auto) 2 % (24-48) Monocytes (%) (Auto) 5 % (0-9) Eosinophils (%) (Auto) 0 % (0-3) Basophils (%) (Auto) 0 % (0-3) Neutrophils # (Auto) 14.4 x10^3/uL (1.8-7.7) Lymphocytes # (Auto) 0.3 x10^3/uL (1.0-4.8) Monocytes # (Auto) 0.8 x10^3/uL (0.0-1.1) Eosinophils # (Auto) 0.0 x10^3/uL (0.0-0.7) Basophils # (Auto) 0.0 x10^3/uL (0.0-0.2) Sodium Level 147 mmol/L (136-145) Potassium Level 5.3 mmol/L (3.5-5.1) Chloride Level 109 mmol/L (98-107) Carbon Dioxide Level 24 mmol/L (21-32) Anion Gap 14 (6-14) Blood Urea Nitrogen 60 mg/dL (8-26) Creatinine 2.6 mg/dL (0.7-1.3) Estimated GFR (Cockcroft-Gault) 23.4 Glucose Level 115 mg/dL (70-99) Calcium Level 8.8 mg/dL (8.5-10.1) O2 Saturation 98 % (92-99) Arterial Blood pH 7.32 (7.35-7.45) Arterial Blood pCO2 at Patient Temp 45 mmHg (35-46) Arterial Blood pO2 at Patient Temp 127 mmHg (65-108) Arterial Blood HCO3 23 mmol/L (21-28) Arterial Blood Base Excess -3 mmol/L (-3-3) Oxyhemoglobin 97.1 % Methemoglobin 0.4 % (0.0-1.9) Carbon Monoxide, Quantitative 0.3 % (0.0-1.9) FiO2 28% bipap24/6,rate24 Glucose (Fingerstick) 108 mg/dL (70-99) 113 mg/dL (70-99) Test 08/28/21 17:03 08/28/21 20:32 08/29/21 07:20 08/29/21 10:50 Glucose (Fingerstick) 131 mg/dL (70-99) 118 mg/dL (70-99) 132 mg/dL (70-99) 135 mg/dL (70-99) Laboratory Tests Test 08/28/21 17:03 08/28/21 20:32 08/29/21 07:20 08/29/21 10:50 Glucose (Fingerstick) 131 mg/dL (70-99) 118 mg/dL (70-99) 132 mg/dL (70-99) 135 mg/dL (70-99) Medications Active Scripts Medications Dose Route/Sig Max Daily Dose Days Date Category Dose Instructions Vitamin C (Ascorbic Acid) 1,000 Mg Tablet 3,000 Mg PO TID 14 12/26/20 Rx Hydrochlorothiazide Capsule (Hydrochlorothiazide) 12.5 Mg Capsule 12.5 Mg PO DAILY 12/25/20 Reported Multi Vitamin Daily (Multivitamin) 1 Each Tablet 1 Tab PO DAILY 30 12/25/20 Reported Proair Hfa Inhaler (Albuterol Sulfate) 8.5 Gm Hfa.aer.ad 2 Puff IH PRN Q4-6HRS PRN 21 12/24/20 Rx Inhale 2 puffs every 4-6 hours as needed for shortness of breath. Aspir-Low (Aspirin) 81 Mg Tablet.dr 81 Mg PO DAILY 01/07/19 Reported Vitamin D3 (Cholecalciferol (Vitamin D3)) 1,000 Unit Tablet 1 Tab PO DAILY 06/04/18 Reported Fenofibrate (Fenofibrate Nanocrystallized) 145 Mg Tablet 1 Tab PO DAILY 06/04/18 Reported Allopurinol 100 Mg Tablet 1 Tab PO DAILY 06/04/18 Reported Impression . 1. Acute on chronic hypoxemic respiratory failure, multifactorial. Patient developed acute hypercapnia. Likely medication induced. He is on BiPAP. RT blood gases have shown compensated hypercapnia. Patient is now more awake. 2. Abnormal CT revealing a new consolidation in right lower lobe with a small effusion, compatible with healthcare-acquired pneumonia, suspect gram-negative, possibly gram-positive. 3. History of lung cancer. 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 4. New left upper lobe enlarging mass, treated with SBRT. Last PET scan revealed disease being under control. 5. Status post left nephrostomy tube, recently hospitalized at [facility] for bladder cancer, had removal of the bladder tumor. 6. Acute on chronic renal failure. 7. Leukocytosis. 8. Severe protein malnutrition, present upon admission. 9. Fever, rule out sepsis. 10. Type 2 diabetes. 11. Coronary artery disease. 12. Hypertension. 13. Hypoglycemia, improved Plan . PLAN: 1. Patient is expressing his desire not to continue aggressive care. Looks like he has given up. I will reach out to family about consideration of hospice. 2. Patient is refusing BiPAP and lab draws. 3. Monitor blood sugar closely. 4. Follow blood cultures. 5. Follow clinical course and make further recommendations. NIRMAL GREEN MD August 29, 2021 11:12
--- NOTE | 2021-08-29 11:22 | PDOC ---
[employer] PROGRESS NOTE Date of Service DOS: DATE: 08/29/21 TIME: 11:21 Chief Complaint Chief Complaint Acute respiratory failure with hypoxia Sepsis Hospital-acquired pneumonia Acute COPD Acute on chronic renal insufficiency possibly due to vasomotor nephropathy History lung cancer History of bladder cancer with recent placement of left nephrostomy tube Mild malnutrition History of Present Illness History of Present Illness 08/29 Patient seen and examined at bedside. Off of BiPAP on nasal cannula now more alert than yesterday. Patient really not wanting to continue treatment. Reviewed pulmonary note looks like they are going to discuss with family. Can also help with communication as well if needed. Continue current otherwise. 08/28 Patient evaluated examined at bedside. Remains on BiPAP. No apparent distress resting. ABG looks little bit better than yesterday. Continue BiPAP. Switch fluids to D5 half-normal today as not tolerating p.o. intake. Discussed with family members at bedside at great length. Pulmonary recommendations reviewed. Discussed with bedside RN. 08/27: Patient evaluated. He is minimally responsive with some agonal breathing. Discussed with RN, he reportedly refused BiPAP yesterday. ABG pending. Will discuss with family when they return today. Very poor prognosis. 08/26: Patient seen and evaluated with son-in-law at bedside. States he feels "jittery" this morning. Did just have breathing treatment. Morning labs still pending. Chest x-ray yesterday showed. Ill-defined patchy mid lung base and right basilar opacities, possibly decreased compared to prior exam. We will recheck chest x-ray tomorrow. Continue with IV antibiotics. 08/25: Patient seen and evaluated. He reports some chest congestion, but no worsening shortness of breath. His MRSA swab was negative, and will discontinue Zyvox. WBC 11.4. Continue IV cefepime. 08/24: Patient seen and evaluated bedside. Afebrile, he denies a sensation of shortness of breath. Receiving breathing treatment this morning. Discussed with Dr. Kyle will continue IV antibiotics for the next few days. Vitals/I&O Vitals/I&O: Vital Signs Date Time Temp Pulse Resp B/P (MAP) Pulse Ox O2 Delivery O2 Flow Rate FiO2 08/29/21 08:20 96 Nasal Cannula 3.0 08/29/21 07:00 98.3 110 22 159/81 (107) 98.3 I & O 08/28/21 08/28/21 08/29/21 15:00 23:00 07:00 Intake Total 60 ml Output Total 200 ml 1000 ml Balance -200 ml -940 ml Physical Exam General: Alert, Oriented X3, Cooperative Heart: Regular rate Lungs: Other (Decreased breath sounds.) Abdomen: Soft, No tenderness Extremities: No clubbing, No cyanosis Skin: No rashes, No breakdown Labs Labs: Laboratory Tests Test 08/28/21 17:03 08/28/21 20:32 08/29/21 07:20 08/29/21 10:50 Glucose (Fingerstick) 131 mg/dL (70-99) 118 mg/dL (70-99) 132 mg/dL (70-99) 135 mg/dL (70-99) Comment Review of Relevant I have reviewed the following items earlene (where applicable) has been applied. Medications: Current Medications Medications (Trade) Dose Ordered Sig/Dominga Route PRN Reason Start Time Stop Time Status Last Admin Dose Admin Dextrose/Sodium Chloride 1,000 ml @ 75 mls/hr 1X ONCE IV 08/28/21 11:30 08/29/21 00:49 DC 08/28/21 11:30 Justifications for Admission Other Justification TATYANA PALOMINO MD August 29, 2021 11:22
[2021-08-29] MEDS: CEFEPIME HCL IV Push 2 GM VIAL. IVP SCH (14:56)
[2021-08-29 15:00] VITALS: BP 136/61
[2021-08-29 15:06] LABS: BASE EXCESS ABG 0 mmol/L (-3-3); HCO3 ABG 28 mmol/L (21-28); PO2 ABG 94 mmHg (65-108); SAT O2 ABG 96 % (92-99)
[2021-08-29 15:16] LABS: PCO2 ABG 63 mmHg (35-46)
[2021-08-29 15:17] LABS: FIO2 ABG 32%/ 3LNC
[2021-08-29] MEDS: HEPARIN for SUB-Q USE 5,000 UNIT/ML VIAL. SQ SCH ×2 (15:22→21:27)
[2021-08-29] MEDS ORDERED: STERILE WATER for RESP 2,000 ML BAG. INH PRN (18:15)
[2021-08-29 19:00] VITALS: BP 147/79
[2021-08-29] MEDS: IV NORMAL SALINE 1000ML BAG 1,000 ML IV SCH (21:15)
[2021-08-29 22:46] VITALS: BP 140/69
[2021-08-30 02:52] VITALS: BP 168/80
[2021-08-30] MEDS: IV NORMAL SALINE 1000ML BAG 1,000 ML IV SCH (05:00)
[2021-08-30 07:00] VITALS: BP 157/73
[2021-08-30] MEDS: IPRATRPIUM/ALBUTEROL 0.5/2.5MG 3 ML NEBU. NEB SCH ×3 (07:14→19:37)
--- NOTE | 2021-08-30 07:28 | PDOC ---
[employer] PROGRESS NOTE Date of Service DOS: DATE: 08/30/21 TIME: 07:27 Chief Complaint Chief Complaint Acute respiratory failure with hypoxia Sepsis Hospital-acquired pneumonia Acute COPD Acute on chronic renal insufficiency possibly due to vasomotor nephropathy History lung cancer History of bladder cancer with recent placement of left nephrostomy tube Mild malnutrition History of Present Illness History of Present Illness 08/30: Seen bedside. Agitated to nursing overnight. Apparently was refusing BiPAP and was more hypoxic was placed on Vapotherm. His O2 saturations are 96 to 98% on 30 L/min. Discussed with pulmonology and family bedside would prefer to be on BiPAP ordered settings 16/09 based on his ABGs overnight he would absolutely need home BiPAP given even several hours off of BiPAP increased his PCO2 to 63 with a pH of 7.25. 08/29: Seen and examined at bedside. Off of BiPAP on nasal cannula now more alert than yesterday. Patient really not wanting to continue treatment. Reviewed pulmonary note looks like they are going to discuss with family. Can also help with communication as well if needed. 08/28: Patient evaluated examined at bedside. Remains on BiPAP. No apparent distress resting. ABG looks little bit better than yesterday. Continue BiPAP. Switch fluids to D5 half-normal today as not tolerating p.o. intake. Discussed with family members at bedside at great length. 08/27: Patient evaluated. He is minimally responsive with some agonal breathing. Discussed with RN, he reportedly refused BiPAP yesterday. ABG pending. Will discuss with family when they return today. Very poor prognosis. 08/26: Patient seen and evaluated with son-in-law at bedside. States he feels "jittery" this morning. Did just have breathing treatment. Morning labs still pending. Chest x-ray yesterday showed. Ill-defined patchy mid lung base and right basilar opacities, possibly decreased compared to prior exam. We will recheck chest x-ray tomorrow. Continue with IV antibiotics. 08/25: Patient seen and evaluated. He reports some chest congestion, but no worsening shortness of breath. His MRSA swab was negative, and will discontinue Zyvox. WBC 11.4. Continue IV cefepime. 08/24: Patient seen and evaluated bedside. Afebrile, he denies a sensation of shortness of breath. Receiving breathing treatment this morning. Discussed with Dr. Kyle will continue IV antibiotics for the next few days. Vitals/I&O Vitals/I&O: Vital Signs Date Time Temp Pulse Resp B/P (MAP) Pulse Ox O2 Delivery O2 Flow Rate FiO2 08/30/21 07:15 90 VAPOTHERM 40.0 08/30/21 02:52 98.2 107 18 168/80 (109) 98.2 I & O 08/29/21 08/29/21 08/30/21 15:00 23:00 07:00 Intake Total 0 ml 100 ml 0 ml Output Total 650 ml 350 ml 700 ml Balance -650 ml -250 ml -700 ml Physical Exam General: Alert, Oriented X3, Cooperative Heart: Regular rate Lungs: Other (Decreased breath sounds.) Abdomen: Soft, No tenderness Extremities: No clubbing, No cyanosis Skin: No rashes, No breakdown Labs Labs: Laboratory Tests Test 08/29/21 10:50 08/29/21 14:16 08/29/21 16:36 Glucose (Fingerstick) 135 mg/dL (70-99) 158 mg/dL (70-99) O2 Saturation 96 % (92-99) Arterial Blood pH 7.26 (7.35-7.45) Arterial Blood pCO2 at Patient Temp 63 mmHg (35-46) Arterial Blood pO2 at Patient Temp 94 mmHg (65-108) Arterial Blood HCO3 28 mmol/L (21-28) Arterial Blood Base Excess 0 mmol/L (-3-3) FiO2 32%/ 3lnc Comment Review of Relevant I have reviewed the following items earlene (where applicable) has been applied. Justifications for Admission Other Justification TATYANA SAEED MD August 30, 2021 07:28
[2021-08-30] MEDS: INSULIN LISPRO 300 UNITS/3 ML VIAL. SQ SCH ×3 (08:00→17:00)
[2021-08-30] MEDS: CHOLECALCIFEROL (VITAMIN D3) 1,000 UNIT TABLET PO SCH (09:02)
[2021-08-30] MEDS: ASPIRIN ENTERIC COATED 81 MG TABLET.DR. PO SCH (09:02)
[2021-08-30] MEDS: LACTOBACILLUS RHAMNOSUS GG 1 CAPSULE. PO SCH ×2 (09:02→20:47)
[2021-08-30] MEDS: FENOFIBRATE,MICRONIZED 134 MG CAPSULE PO SCH (09:02)
[2021-08-30] MEDS: METOPROLOL SUCC 24HR ER 50 MG TAB.ER.24H. PO SCH (09:03)
[2021-08-30] MEDS: ALLOPURINOL 100 MG TABLET. PO SCH (09:03)
[2021-08-30] MEDS: HEPARIN for SUB-Q USE 5,000 UNIT/ML VIAL. SQ SCH ×2 (09:14→20:52)
[2021-08-30] MEDS: ASCORBIC ACID 1,000 MG TABLET PO SCH ×3 (09:33→20:47)
--- NOTE | 2021-08-30 09:34 | PDOC ---
PULMONARY PROGRESS NOTES DATE: 08/30/21 TIME: 09:31 Subjective Patient had acute hypercapnic respiratory failure 08/26/2021. Patient was treated with BiPAP. Narcotics and benzodiazepines were significantly minimized. Patient is now more awake. Patient developed worsening hypercapnia again last night. Since he did not tolerate BiPAP well he was placed on Vapotherm. Vitals Vital Signs Date Time Temp Pulse Resp B/P (MAP) Pulse Ox O2 Delivery O2 Flow Rate FiO2 08/30/21 09:03 97 157/73 08/30/21 07:15 90 VAPOTHERM 40.0 08/30/21 07:00 97.6 24 97.6 General: Alert, No acute distress Lungs: Other (Decreased breath sounds.) Cardiovascular: S1, S2 Abdomen: Soft, Non-tender Extremities: No Edema Skin: Warm Labs Laboratory Tests Test 08/28/21 11:08 08/28/21 17:03 08/28/21 20:32 08/29/21 07:20 Glucose (Fingerstick) 113 mg/dL (70-99) 131 mg/dL (70-99) 118 mg/dL (70-99) 132 mg/dL (70-99) Test 08/29/21 10:50 08/29/21 14:16 08/29/21 16:36 Glucose (Fingerstick) 135 mg/dL (70-99) 158 mg/dL (70-99) O2 Saturation 96 % (92-99) Arterial Blood pH 7.26 (7.35-7.45) Arterial Blood pCO2 at Patient Temp 63 mmHg (35-46) Arterial Blood pO2 at Patient Temp 94 mmHg (65-108) Arterial Blood HCO3 28 mmol/L (21-28) Arterial Blood Base Excess 0 mmol/L (-3-3) FiO2 32%/ 3lnc Laboratory Tests Test 08/29/21 10:50 08/29/21 14:16 08/29/21 16:36 Glucose (Fingerstick) 135 mg/dL (70-99) 158 mg/dL (70-99) O2 Saturation 96 % (92-99) Arterial Blood pH 7.26 (7.35-7.45) Arterial Blood pCO2 at Patient Temp 63 mmHg (35-46) Arterial Blood pO2 at Patient Temp 94 mmHg (65-108) Arterial Blood HCO3 28 mmol/L (21-28) Arterial Blood Base Excess 0 mmol/L (-3-3) FiO2 32%/ 3lnc Medications Active Scripts Medications Dose Route/Sig Max Daily Dose Days Date Category Dose Instructions Vitamin C (Ascorbic Acid) 1,000 Mg Tablet 3,000 Mg PO TID 14 12/26/20 Rx Hydrochlorothiazide Capsule (Hydrochlorothiazide) 12.5 Mg Capsule 12.5 Mg PO DAILY 12/25/20 Reported Multi Vitamin Daily (Multivitamin) 1 Each Tablet 1 Tab PO DAILY 30 12/25/20 Reported Proair Hfa Inhaler (Albuterol Sulfate) 8.5 Gm Hfa.aer.ad 2 Puff IH PRN Q4-6HRS PRN 21 12/24/20 Rx Inhale 2 puffs every 4-6 hours as needed for shortness of breath. Aspir-Low (Aspirin) 81 Mg Tablet.dr 81 Mg PO DAILY 01/07/19 Reported Vitamin D3 (Cholecalciferol (Vitamin D3)) 1,000 Unit Tablet 1 Tab PO DAILY 06/04/18 Reported Fenofibrate (Fenofibrate Nanocrystallized) 145 Mg Tablet 1 Tab PO DAILY 06/04/18 Reported Allopurinol 100 Mg Tablet 1 Tab PO DAILY 06/04/18 Reported Impression . 1. Acute on chronic hypoxemic respiratory failure, multifactorial. Patient developed acute hypercapnia. Likely medication induced. Treat with BiPAP. He did not tolerated BiPAP well. Last night his hypercapnia worsened again. He did not receive any narcotics or benzodiazepines. 2. Abnormal CT revealing a new consolidation in right lower lobe with a small effusion, compatible with healthcare-acquired pneumonia, suspect gram-negative, possibly gram-positive. 3. History of lung cancer. 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 4. New left upper lobe enlarging mass, treated with SBRT. Last PET scan revealed disease being under control. 5. Status post left nephrostomy tube, recently hospitalized at [facility] for bladder cancer, had removal of the bladder tumor. 6. Acute on chronic renal failure. 7. Leukocytosis. 8. Severe protein malnutrition, present upon admission. 9. Fever, rule out sepsis. 10. Type 2 diabetes. 11. Coronary artery disease. 12. Hypertension. 13. Hypoglycemia, improved Plan . PLAN: 1. Discussed in detail with patient's son at the bedside. Patient is currently on Vapotherm. I did explain to them that Vapotherm may not help the hypercapnia effectively. Patient may qualify for nocturnal BiPAP without the need for sleep study based on his recurrent hypercapnia. Last night hypercapnia was not related to narcotics or benzodiazepines. We will asked the manager of case to help with nocturnal BiPAP. 2. Vapotherm can be discontinued. He can be placed on nasal cannula. 3. Monitor blood sugar closely. 4. Follow blood cultures. 5. Follow clinical course and make further recommendations. 6. At this point patient's family is not ready for hospice. Discussed with NIRMAL Damon MD August 30, 2021 09:34
[2021-08-30 11:00] VITALS: BP 140/70
[2021-08-30] MEDS: CEFEPIME HCL IV Push 2 GM VIAL. IVP SCH (12:00)
[2021-08-30 15:00] VITALS: BP 136/69
[2021-08-30 19:16] VITALS: BP 140/73
[2021-08-30 22:46] VITALS: BP 146/72
[2021-08-31 02:42] VITALS: BP 102/51
[2021-08-31 06:02] LABS: BASO % 0 % (0-3); EOS # 0.3 x10^3/uL (0.0-0.7); EOS % 5 % (0-3); HEMATOCRIT 25.4 % (39.0-53.0); HEMOGLOBIN 8.2 g/dL (13.0-17.5); LYMPH # 0.6 x10^3/uL (1.0-4.8); LYMPH % 9 % (24-48); MEAN CORPUSCULAR HEMOGLOBIN 31 pg (25-35); MEAN CORPUSCULAR HGB CONC 32 g/dL (31-37); MEAN CORPUSCULAR VOLUME 95 fL (79-100); MONO # 0.5 x10^3/uL (0.0-1.1); MONO % 7 % (0-9); NEUT # 5.4 x10^3/uL (1.8-7.7); NEUT % 79 % (31-73); PLATELET COUNT 404 x10^3/uL (140-400); RED BLOOD COUNT 2.68 x10^6/uL (4.30-5.70); RED CELL DISTRIBUTION WIDTH 14.6 % (11.5-14.5); WHITE BLOOD COUNT 6.8 x10^3/uL (4.0-11.0)
[2021-08-31 06:06] LABS: CALCIUM 9.3 mg/dL (8.5-10.1); CREATININE 2.2 mg/dL (0.7-1.3); GFR 28.4
[2021-08-31 06:15] LABS: POTASSIUM 5.2 mmol/L (3.5-5.1)
[2021-08-31 07:00] VITALS: BP 128/67
[2021-08-31] MEDS: IPRATRPIUM/ALBUTEROL 0.5/2.5MG 3 ML NEBU. NEB SCH ×4 (07:23→21:09)
[2021-08-31] MEDS: INSULIN LISPRO 300 UNITS/3 ML VIAL. SQ SCH ×3 (07:49→17:00)
[2021-08-31] MEDS: ALLOPURINOL 100 MG TABLET. PO SCH (07:57)
[2021-08-31] MEDS: METOPROLOL SUCC 24HR ER 50 MG TAB.ER.24H. PO SCH (07:57)
[2021-08-31] MEDS: CHOLECALCIFEROL (VITAMIN D3) 1,000 UNIT TABLET PO SCH (07:57)
[2021-08-31] MEDS: FENOFIBRATE,MICRONIZED 134 MG CAPSULE PO SCH (07:58)
[2021-08-31] MEDS: ASPIRIN ENTERIC COATED 81 MG TABLET.DR. PO SCH (07:58)
[2021-08-31] MEDS: LACTOBACILLUS RHAMNOSUS GG 1 CAPSULE. PO SCH ×2 (07:58→21:46)
[2021-08-31] MEDS: ASCORBIC ACID 1,000 MG TABLET PO SCH ×3 (08:01→21:45)
[2021-08-31] MEDS: HEPARIN for SUB-Q USE 5,000 UNIT/ML VIAL. SQ SCH ×2 (08:12→21:47)
--- NOTE | 2021-08-31 08:54 | PDOC ---
PULMONARY PROGRESS NOTES DATE: 08/31/21 TIME: 08:54 Subjective Patient back on his oxygen per nasal cannula at 2 L not more short of air cough is nonproductive Vitals Vital Signs Date Time Temp Pulse Resp B/P (MAP) Pulse Ox O2 Delivery O2 Flow Rate FiO2 08/31/21 07:57 83 102/51 08/31/21 07:23 98 BiPAP/CPAP 08/31/21 07:00 98.1 24 98.1 08/30/21 20:00 3.0 ROS: No Nausea, No Chest Pain, No Abdominal Pain, No Increase Cough General: Alert, No acute distress Lungs: Other (Decreased breath sounds.) Cardiovascular: S1, S2 Abdomen: Soft, Non-tender Extremities: No Edema Skin: Warm Labs Laboratory Tests Test 08/29/21 10:50 08/29/21 14:16 08/29/21 16:36 08/31/21 02:20 Glucose (Fingerstick) 135 mg/dL (70-99) 158 mg/dL (70-99) 132 mg/dL (70-99) O2 Saturation 96 % (92-99) Arterial Blood pH 7.26 (7.35-7.45) Arterial Blood pCO2 at Patient Temp 63 mmHg (35-46) Arterial Blood pO2 at Patient Temp 94 mmHg (65-108) Arterial Blood HCO3 28 mmol/L (21-28) Arterial Blood Base Excess 0 mmol/L (-3-3) FiO2 32%/ 3lnc Test 08/31/21 04:30 08/31/21 07:38 White Blood Count 6.8 x10^3/uL (4.0-11.0) Red Blood Count 2.68 x10^6/uL (4.30-5.70) Hemoglobin 8.2 g/dL (13.0-17.5) Hematocrit 25.4 % (39.0-53.0) Mean Corpuscular Volume 95 fL (79-100) Mean Corpuscular Hemoglobin 31 pg (25-35) Mean Corpuscular Hemoglobin Concent 32 g/dL (31-37) Red Cell Distribution Width 14.6 % (11.5-14.5) Platelet Count 404 x10^3/uL (140-400) Neutrophils (%) (Auto) 79 % (31-73) Lymphocytes (%) (Auto) 9 % (24-48) Monocytes (%) (Auto) 7 % (0-9) Eosinophils (%) (Auto) 5 % (0-3) Basophils (%) (Auto) 0 % (0-3) Neutrophils # (Auto) 5.4 x10^3/uL (1.8-7.7) Lymphocytes # (Auto) 0.6 x10^3/uL (1.0-4.8) Monocytes # (Auto) 0.5 x10^3/uL (0.0-1.1) Eosinophils # (Auto) 0.3 x10^3/uL (0.0-0.7) Basophils # (Auto) 0.0 x10^3/uL (0.0-0.2) Sodium Level 146 mmol/L (136-145) Potassium Level 5.2 mmol/L (3.5-5.1) Chloride Level 109 mmol/L (98-107) Carbon Dioxide Level 30 mmol/L (21-32) Anion Gap 7 (6-14) Blood Urea Nitrogen 60 mg/dL (8-26) Creatinine 2.2 mg/dL (0.7-1.3) Estimated GFR (Cockcroft-Gault) 28.4 Glucose Level 130 mg/dL (70-99) Calcium Level 9.3 mg/dL (8.5-10.1) Glucose (Fingerstick) 115 mg/dL (70-99) Laboratory Tests Test 08/31/21 02:20 08/31/21 04:30 08/31/21 07:38 Glucose (Fingerstick) 132 mg/dL (70-99) 115 mg/dL (70-99) White Blood Count 6.8 x10^3/uL (4.0-11.0) Red Blood Count 2.68 x10^6/uL (4.30-5.70) Hemoglobin 8.2 g/dL (13.0-17.5) Hematocrit 25.4 % (39.0-53.0) Mean Corpuscular Volume 95 fL (79-100) Mean Corpuscular Hemoglobin 31 pg (25-35) Mean Corpuscular Hemoglobin Concent 32 g/dL (31-37) Red Cell Distribution Width 14.6 % (11.5-14.5) Platelet Count 404 x10^3/uL (140-400) Neutrophils (%) (Auto) 79 % (31-73) Lymphocytes (%) (Auto) 9 % (24-48) Monocytes (%) (Auto) 7 % (0-9) Eosinophils (%) (Auto) 5 % (0-3) Basophils (%) (Auto) 0 % (0-3) Neutrophils # (Auto) 5.4 x10^3/uL (1.8-7.7) Lymphocytes # (Auto) 0.6 x10^3/uL (1.0-4.8) Monocytes # (Auto) 0.5 x10^3/uL (0.0-1.1) Eosinophils # (Auto) 0.3 x10^3/uL (0.0-0.7) Basophils # (Auto) 0.0 x10^3/uL (0.0-0.2) Sodium Level 146 mmol/L (136-145) Potassium Level 5.2 mmol/L (3.5-5.1) Chloride Level 109 mmol/L (98-107) Carbon Dioxide Level 30 mmol/L (21-32) Anion Gap 7 (6-14) Blood Urea Nitrogen 60 mg/dL (8-26) Creatinine 2.2 mg/dL (0.7-1.3) Estimated GFR (Cockcroft-Gault) 28.4 Glucose Level 130 mg/dL (70-99) Calcium Level 9.3 mg/dL (8.5-10.1) Medications Active Scripts Medications Dose Route/Sig Max Daily Dose Days Date Category Dose Instructions Vitamin C (Ascorbic Acid) 1,000 Mg Tablet 3,000 Mg PO TID 14 12/26/20 Rx Hydrochlorothiazide Capsule (Hydrochlorothiazide) 12.5 Mg Capsule 12.5 Mg PO DAILY 12/25/20 Reported Multi Vitamin Daily (Multivitamin) 1 Each Tablet 1 Tab PO DAILY 30 12/25/20 Reported Proair Hfa Inhaler (Albuterol Sulfate) 8.5 Gm Hfa.aer.ad 2 Puff IH PRN Q4-6HRS PRN 21 12/24/20 Rx Inhale 2 puffs every 4-6 hours as needed for shortness of breath. Aspir-Low (Aspirin) 81 Mg Tablet.dr 81 Mg PO DAILY 01/07/19 Reported Vitamin D3 (Cholecalciferol (Vitamin D3)) 1,000 Unit Tablet 1 Tab PO DAILY 06/04/18 Reported Fenofibrate (Fenofibrate Nanocrystallized) 145 Mg Tablet 1 Tab PO DAILY 06/04/18 Reported Allopurinol 100 Mg Tablet 1 Tab PO DAILY 06/04/18 Reported Impression . 1. Acute on chronic hypoxemic respiratory failure, multifactorial. Patient developed acute hypercapnia. 2. Abnormal CT revealing a new consolidation in right lower lobe with a small effusion, compatible with healthcare-acquired pneumonia, suspect gram-negative, possibly gram-positive. 3. History of lung cancer. 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 4. New left upper lobe enlarging mass, treated with SBRT. Last PET scan revealed disease being under control. 5. Status post left nephrostomy tube, recently hospitalized at [facility] for bladder cancer, had removal of the bladder tumor. 6. Acute on chronic renal failure. 7. Leukocytosis. 8. Severe protein malnutrition, present upon admission. 9. Fever, rule out sepsis. 10. Type 2 diabetes. 11. Coronary artery disease. 12. Hypertension. 13. Hypoglycemia, improved Plan . Updated 08/31 Patient slowly improving back on baseline nasal cannula oxygen Will continue as needed BiPAP and nightly consult PT Social service to evaluate patient for either [facility] or [facility] rehab Discussed with son at the bedside Will check to see if he qualifies for home noninvasive ventilation with trilogy, patient would greatly benefit from adequate delivery of tidal volume. PLAN: 1. Discussed in detail with patient's son at the bedside. Patient is currently on Vapotherm. I did explain to them that Vapotherm may not help the hypercapnia effectively. Patient may qualify for nocturnal BiPAP without the need for sleep study based on his recurrent hypercapnia. Last night hypercapnia was not related to narcotics or benzodiazepines. We will asked the case operator to help with nocturnal BiPAP. 2. Vapotherm can be discontinued. He can be placed on nasal cannula. 3. Monitor blood sugar closely. 4. Follow blood cultures. 5. Follow clinical course and make further recommendations. 6. At this point patient's family is not ready for hospice. Discussed with ANAMIKA Hernandez MD August 31, 2021 08:54
[2021-08-31 11:00] VITALS: BP 131/59
[2021-08-31 11:09] LABS: % BANDS 3 % (0-9); % EOS 4 % (0-5); % LYMPHS 10 % (24-48); % MONOS 4 % (0-10); % SEGS 79 % (35-66); PLT ESTIMATE INCREASED (ADEQUATE)
--- NOTE | 2021-08-31 11:14 | PDOC ---
[employer] PROGRESS NOTE Date of Service DOS: DATE: 08/31/21 TIME: 11:13 Chief Complaint Chief Complaint Acute respiratory failure with hypoxia Sepsis Hospital-acquired pneumonia Acute COPD Acute on chronic renal insufficiency possibly due to vasomotor nephropathy History lung cancer History of bladder cancer with recent placement of left nephrostomy tube Mild malnutrition History of Present Illness History of Present Illness 08/31/2021 Patient seen and examined Discussed with RN Discussed with case management Patient is now refusing to have his IV reinserted He states he just wants to He knows what year it is and seems perfectly alert just has given up as well to live Chart reviewed We plan to discharge with [facility] 08/30: Seen bedside. Agitated to nursing overnight. Apparently was refusing BiPAP and was more hypoxic was placed on Vapotherm. His O2 saturations are 96 to 98% on 30 L/min. Discussed with pulmonology and family bedside would prefer to be on BiPAP ordered settings 16/09 based on his ABGs overnight he would absolutely need home BiPAP given even several hours off of BiPAP increased his PCO2 to 63 with a pH of 7.25. 08/29: Seen and examined at bedside. Off of BiPAP on nasal cannula now more alert than yesterday. Patient really not wanting to continue treatment. Reviewed pulmonary note looks like they are going to discuss with family. Can also help with communication as well if needed. 08/28: Patient evaluated examined at bedside. Remains on BiPAP. No apparent distress resting. ABG looks little bit better than yesterday. Continue BiPAP. Switch fluids to D5 half-normal today as not tolerating p.o. intake. Discussed with family members at bedside at great length. 08/27: Patient evaluated. He is minimally responsive with some agonal breathing. Discussed with RN, he reportedly refused BiPAP yesterday. ABG pending. Will discuss with family when they return today. Very poor prognosis. 08/26: Patient seen and evaluated with son-in-law at bedside. States he feels "jittery" this morning. Did just have breathing treatment. Morning labs still pending. Chest x-ray yesterday showed. Ill-defined patchy mid lung base and right basilar opacities, possibly decreased compared to prior exam. We will recheck chest x-ray tomorrow. Continue with IV antibiotics. 08/25: Patient seen and evaluated. He reports some chest congestion, but no worsening shortness of breath. His MRSA swab was negative, and will discontinue Zyvox. WBC 11.4. Continue IV cefepime. 08/24: Patient seen and evaluated bedside. Afebrile, he denies a sensation of shortness of breath. Receiving breathing treatment this morning. Discussed with Dr. Kyle will continue IV antibiotics for the next few days. Vitals/I&O Vitals/I&O: Vital Signs Date Time Temp Pulse Resp B/P (MAP) Pulse Ox O2 Delivery O2 Flow Rate FiO2 08/31/21 08:00 Bi-pap 3.0 08/31/21 07:57 83 102/51 08/31/21 07:23 98 08/31/21 07:00 98.1 24 98.1 I & O 08/30/21 08/30/21 08/31/21 15:00 23:00 07:00 Intake Total 390 ml 310 ml 0 ml Output Total 500 ml 500 ml Balance -110 ml 310 ml -500 ml Physical Exam General: Alert, Oriented X3, Cooperative Heart: Regular rate Lungs: Other (Decreased breath sounds.) Abdomen: Soft, No tenderness Extremities: No clubbing, No cyanosis Skin: No rashes, No breakdown Labs Labs: Laboratory Tests Test 08/31/21 02:20 08/31/21 04:30 08/31/21 07:38 08/31/21 11:09 Glucose (Fingerstick) 132 mg/dL (70-99) 115 mg/dL (70-99) 167 mg/dL (70-99) White Blood Count 6.8 x10^3/uL (4.0-11.0) Red Blood Count 2.68 x10^6/uL (4.30-5.70) Hemoglobin 8.2 g/dL (13.0-17.5) Hematocrit 25.4 % (39.0-53.0) Mean Corpuscular Volume 95 fL (79-100) Mean Corpuscular Hemoglobin 31 pg (25-35) Mean Corpuscular Hemoglobin Concent 32 g/dL (31-37) Red Cell Distribution Width 14.6 % (11.5-14.5) Platelet Count 404 x10^3/uL (140-400) Neutrophils (%) (Auto) 79 % (31-73) Lymphocytes (%) (Auto) 9 % (24-48) Monocytes (%) (Auto) 7 % (0-9) Eosinophils (%) (Auto) 5 % (0-3) Basophils (%) (Auto) 0 % (0-3) Neutrophils # (Auto) 5.4 x10^3/uL (1.8-7.7) Lymphocytes # (Auto) 0.6 x10^3/uL (1.0-4.8) Monocytes # (Auto) 0.5 x10^3/uL (0.0-1.1) Eosinophils # (Auto) 0.3 x10^3/uL (0.0-0.7) Basophils # (Auto) 0.0 x10^3/uL (0.0-0.2) Segmented Neutrophils % 79 % (35-66) Band Neutrophils % 3 % (0-9) Lymphocytes % 10 % (24-48) Monocytes % 4 % (0-10) Eosinophils % 4 % (0-5) Platelet Estimate Increased (ADEQUATE) Sodium Level 146 mmol/L (136-145) Potassium Level 5.2 mmol/L (3.5-5.1) Chloride Level 109 mmol/L (98-107) Carbon Dioxide Level 30 mmol/L (21-32) Anion Gap 7 (6-14) Blood Urea Nitrogen 60 mg/dL (8-26) Creatinine 2.2 mg/dL (0.7-1.3) Estimated GFR (Cockcroft-Gault) 28.4 Glucose Level 130 mg/dL (70-99) Calcium Level 9.3 mg/dL (8.5-10.1) Assessment and Plan Assessmemt and Plan Plan is discharge with [facility] Comment Review of Relevant I have reviewed the following items earlene (where applicable) has been applied. Justifications for Admission Other Justification SIOBHAN DOWD III DO August 31, 2021 11:14
--- NOTE | 2021-08-31 11:17 | SNU/HH DC ---
DISCHARGE ORDERS DISCHARGE INFORMATION: CONDITION ON DISCHARGE: Stable CODE STATUS: Code Status: DNR/DNI FDC: SNF STAY <30 DAYS: No HOSPICE: HOSPICE: No HOSPICE EVAL & TREAT: No LTAC: ADMIT TO LTAC: No POST DISCHARGE ORDERS: ACTIVITY ORDERS: Resume previous activity, Activity as tolerated DIET AFTER DISCHARGE: Cardiac OTHER ORDERS: [facility] team to assume comfort med CHECKS AFTER DISCHARGE: CHECKS AFTER DISCHARGE: Check blood press - daily, Check blood sugar, ac/hs, Check your Temp as needed, Weigh Yourself Daily DISCHARGE MEDICATIONS: Home Meds Active Scripts Ascorbic Acid (VITAMIN C) 1,000 Mg Tablet, 3000 MG PO TID for supplement for 14 Days, #126 TAB 1 Refill Prov:EYAD MEDELLIN MD 12/26/20 Albuterol Sulfate (PROAIR HFA INHALER) 8.5 Gm Hfa.aer.ad, 2 PUFF IH PRN Q4-6HRS PRN for wheezing for 21 Days, #1 INHALER 0 Refills Inhale 2 puffs every 4-6 hours as needed for shortness of breath. Prov:TONY STAPLETON 12/24/20 Reported Medications Ipratropium/Albuterol Sulfate (COMBIVENT RESPIMAT INHAL) 4 Gm Aer.w.adap, 1 INH IH QID PRN for SHORTNESS OF BREATH, EACH 08/24/21 Temazepam (TEMAZEPAM) 15 Mg Capsule, 1 CAP PO QHS PRN for INSOMNIA, #30 CAP 1 Refill 08/24/21 Allopurinol (ALLOPURINOL) 100 Mg Tablet, 1 TAB PO DAILY for gout, #30 TAB 5 Refills 08/24/21 Glimepiride (GLIMEPIRIDE) 1 Mg Tablet, 1 TAB PO DAILY for dm, #30 TAB 5 Refills 08/24/21 Losartan/Hydrochlorothiazide (LOSARTAN-HCTZ 50-12.5 MG TAB) 1 Each Tablet, 1 TAB PO DAILY for bp, #30 TAB 5 Refills 08/24/21 Freedom-3 Fatty Acids/Fish Oil (FISH OIL 1,000 MG SOFTGEL) 1 Each Capsule, 1 CAP PO DAILY for supplement for 30 Days, #30 CAP 0 Refills 08/24/21 Metoprolol Succinate (METOPROLOL SUCCINATE ( XL )) 25 Mg Tab.er.24h, 1 TAB PO HS for bp, #30 TAB 5 Refills 08/24/21 Metoprolol Succinate (Toprol XL) 50 Mg Tab.er.24h, 50 MG PO DAILY for FOR HYPERTENSION, TAB.SR 08/24/21 Oxybutynin Chloride (OXYBUTYNIN CHLORIDE ER) 10 Mg Tab.er.24, 1 TAB PO DAILY for retention, #30 TAB 5 Refills 08/24/21 Multivitamin (MULTI VITAMIN DAILY) 1 Each Tablet, 1 TAB PO DAILY for SUPPLEMENT for 30 Days, #30 TAB 0 Refills 12/25/20 Aspirin (ASPIR-LOW) 81 Mg Tablet.dr, 81 MG PO DAILY for heart health 01/07/19 Cholecalciferol (Vitamin D3) (VITAMIN D3) 1,000 Unit Tablet, 1 TAB PO DAILY for supplement 06/04/18 Fenofibrate Nanocrystallized (FENOFIBRATE) 145 Mg Tablet, 1 TAB PO DAILY for hld 06/04/18 Discontinued Reported Medications Hydrochlorothiazide (HYDROCHLOROTHIAZIDE CAPSULE ) 12.5 Mg Capsule, 12.5 MG PO DAILY for DIURETIC, CAP 0 Refills 12/25/20 Allopurinol (ALLOPURINOL) 100 Mg Tablet, 1 TAB PO DAILY for gout 06/04/18 SIOBHAN DOWD III DO August 31, 2021 11:17
--- NOTE | 2021-08-31 11:20 | SNU/HH DC ---
DISCHARGE WITH HOME HEALTH DISCHARGE INFORMATION: Condition on Discharge: Stable CODE STATUS: Code Status: DNR/DNI HOME HEALTH: Face to Face: I certify this patient is under my care and that I, or a nurse practitioner or physician's assistant to the director working with me, had a face to face encounter that meets the physician face to face encounter requirements with this patient on []. Medical Complications: Other (Failure to thrive respiratory failure) [facility] For: Other: (Palliative home health) RN For Eval/Treatment: Yes Home Health Aide For: Self-care FORMULATION CHEMIST For: Community Resources Pt Meets Homebound Status: Other: (Failure to thrive respiratory failure) POST DISCHARGE ORDERS: Activity Instructions for Disc: Bedrest today DIET AFTER DISCHARGE: Cardiac DC TO SNF OTHER: [facility] team to assume comfort med CHECKS AFTER DISCHARGE: Checks after discharge: Check blood press - daily, Check blood sugar, ac/hs, Check your Temp as needed, Weigh Yourself Daily CERTIFICATION STATEMENT: Certification Statement: Certification Statement: Based on the above finding, I certify that this patient is confined to the home and needs intermittent penitentiary care, physical therapy and/or speech therapy, or continues to need occupational therapy.~ This patient is under my care, and I have initiated the establishment of the plan of care.~ This patient will be followed by myself or a community physician who will periodically review the plan of care. Home Meds Active Scripts Ascorbic Acid (VITAMIN C) 1,000 Mg Tablet, 3000 MG PO TID for supplement for 14 Days, #126 TAB 1 Refill Prov:EYAD MEDELLIN MD 12/26/20 Albuterol Sulfate (PROAIR HFA INHALER) 8.5 Gm Hfa.aer.ad, 2 PUFF IH PRN Q4-6HRS PRN for wheezing for 21 Days, #1 INHALER 0 Refills Inhale 2 puffs every 4-6 hours as needed for shortness of breath. Prov:TONY STAPLETON 12/24/20 Reported Medications Ipratropium/Albuterol Sulfate (COMBIVENT RESPIMAT INHAL) 4 Gm Aer.w.adap, 1 INH IH QID PRN for SHORTNESS OF BREATH, EACH 08/24/21 Temazepam (TEMAZEPAM) 15 Mg Capsule, 1 CAP PO QHS PRN for INSOMNIA, #30 CAP 1 Refill 08/24/21 Allopurinol (ALLOPURINOL) 100 Mg Tablet, 1 TAB PO DAILY for gout, #30 TAB 5 Refi lls 08/24/21 Glimepiride (GLIMEPIRIDE) 1 Mg Tablet, 1 TAB PO DAILY for dm, #30 TAB 5 Refills 08/24/21 Losartan/Hydrochlorothiazide (LOSARTAN-HCTZ 50-12.5 MG TAB) 1 Each Tablet, 1 TAB PO DAILY for bp, #30 TAB 5 Refills 08/24/21 Emerson-3 Fatty Acids/Fish Oil (FISH OIL 1,000 MG SOFTGEL) 1 Each Capsule, 1 CAP PO DAILY for supplement for 30 Days, #30 CAP 0 Refills 08/24/21 Metoprolol Succinate (METOPROLOL SUCCINATE ( XL )) 25 Mg Tab.er.24h, 1 TAB PO HS for bp, #30 TAB 5 Refills 08/24/21 Metoprolol Succinate (Toprol XL) 50 Mg Tab.er.24h, 50 MG PO DAILY for FOR HYPERTENSION, TAB.SR 08/24/21 Oxybutynin Chloride (OXYBUTYNIN CHLORIDE ER) 10 Mg Tab.er.24, 1 TAB PO DAILY for retention, #30 TAB 5 Refills 08/24/21 Multivitamin (MULTI VITAMIN DAILY) 1 Each Tablet, 1 TAB PO DAILY for SUPPLEMENT for 30 Days, #30 TAB 0 Refills 12/25/20 Aspirin (ASPIR-LOW) 81 Mg Tablet.dr, 81 MG PO DAILY for heart health 01/07/19 Cholecalciferol (Vitamin D3) (VITAMIN D3) 1,000 Unit Tablet, 1 TAB PO DAILY for supplement 06/04/18 Fenofibrate Nanocrystallized (FENOFIBRATE) 145 Mg Tablet, 1 TAB PO DAILY for hld 06/04/18 Discontinued Reported Medications Hydrochlorothiazide (HYDROCHLOROTHIAZIDE CAPSULE ) 12.5 Mg Capsule, 12.5 MG PO DAILY for DIURETIC, CAP 0 Refills 12/25/20 Allopurinol (ALLOPURINOL) 100 Mg Tablet, 1 TAB PO DAILY for gout 06/04/18 SIOBHAN DOWD III DO August 31, 2021 11:20
[2021-08-31] MEDS: CEFEPIME HCL IV Push 2 GM VIAL. IVP SCH (12:00)
[2021-08-31] MEDS: AMOXICILLIN/K CLAV 500/125MG TABLET. PO SCH ×2 (13:01→21:46)
[2021-08-31 14:28] VITALS: BP 134/57
[2021-08-31 18:23] VITALS: BP 117/71
== END 2021-09-01 | DRG 871 ==
LOC: 5 NORTH 09:15 → 6 SOUTH 08-29 19:18
PROVIDERS: ADMIT Student in an Organized Health Care Education/Training Program; ATTEND Student in an Organized Health Care Education/Training Program
PROC: 5A09357 Assistance with Respiratory Ventilation, Less than 24 Consecutive Hours, Continuous Positive Airway Pressure (ICD-10-PCS; 2021-08-27)
PROC: 5A09357 Assistance with Respiratory Ventilation, Less than 24 Consecutive Hours, Continuous Positive Airway Pressure (ICD-10-PCS; 2021-08-28)
PROC: 5A0935A Assistance with Respiratory Ventilation, Less than 24 Consecutive Hours, High Flow/Velocity Cannula (ICD-10-PCS; principal; 2021-08-29)
PROC: 5A0935A Assistance with Respiratory Ventilation, Less than 24 Consecutive Hours, High Flow/Velocity Cannula (ICD-10-PCS; 2021-08-30)
PROC: 5A09357 Assistance with Respiratory Ventilation, Less than 24 Consecutive Hours, Continuous Positive Airway Pressure (ICD-10-PCS; 2021-08-30)
DX: A41.9 Sepsis, unspecified organism (principal); J96.01 Acute respiratory failure with hypoxia; J18.9 Pneumonia, unspecified organism; N17.0 Acute kidney failure with tubular necrosis; E43 Unspecified severe protein-calorie malnutrition; J96.21 Acute and chronic respiratory failure with hypoxia; J96.22 Acute and chronic respiratory failure with hypercapnia; J44.1 Chronic obstructive pulmonary disease with (acute) exacerbation; C34.90 Malignant neoplasm of unspecified part of unspecified bronchus or lung; J44.0 Chronic obstructive pulmonary disease with (acute) lower respiratory infection; J90 Pleural effusion, not elsewhere classified; N17.9 Acute kidney failure, unspecified; E11.22 Type 2 diabetes mellitus with diabetic chronic kidney disease; E11.649 Type 2 diabetes mellitus with hypoglycemia without coma; E78.5 Hyperlipidemia, unspecified; I12.9 Hypertensive chronic kidney disease with stage 1 through stage 4 chronic kidney disease, or unspecified chronic kidney disease; I25.10 Atherosclerotic heart disease of native coronary artery without angina pectoris; N18.9 Chronic kidney disease, unspecified; Y95 Nosocomial condition; Z20.822 Contact with and (suspected) exposure to COVID-19; Z82.49 Family history of ischemic heart disease and other diseases of the circulatory system; Z85.118 Personal history of other malignant neoplasm of bronchus and lung; Z85.51 Personal history of malignant neoplasm of bladder; M19.90 Unspecified osteoarthritis, unspecified site; Z90.49 Acquired absence of other specified parts of digestive tract; Z79.899 Other long term (current) drug therapy
CPT/HCPCS: 36415; 36600; 71045; 80048; 80053; 82805; 82962; 83735; 84145; 85007; 85025; 87641; 94640; 94660; 94760; J0692; J1644; J1815; J1940; J2020; J2060; J3370; J3486; J7030; J7042; J7060; 97530-GP; 97535-GO; G0378; J7613